=== PATIENT | female | born 1955 | race Caucasian/White ===

== ENCOUNTER → 2017-12-08 11:00 | Outpatient (REF) | payer OTHER, SELFPAY ==
[2017-12-08 13:54] LABS: Alanine Aminotransferase 26 U/L (12-78); Albumin/Globulin Ratio 1.2 (1.1-1.8); Alkaline Phosphatase 107 U/L (46-116); Anion Gap 13.8 mEq/L (5-15); Aspartate Amino Transferase 16 U/L (15-37); Bilirubin,Total 0.4 mg/dL (0.2-1.0); Blood Urea Nitrogen 11 mg/dL (7-18); Calcium 9.9 mg/dL (8.5-10.1); Carbon Dioxide 27 mmol/L (21.0-32.0); Chloride 101 mmol/L (98-107); Cholesterol 247 mg/dL (140-200); Creatinine,Serum 0.71 mg/dL (0.55-1.02); Estimated Glomerular Filt Rate 84 ml/min (>60); GFR (African American) 102 ML/MIN (>60); Globulin 3.4 gm/dl (1.3-3.2); Glucose 250 mg/dL (74-106); HDL Cholesterol 31 mg/dL (29-89); LDL Cholesterol 164 mg/dL (0-130); Potassium 4.8 mmoL/L (3.5-5.1); Sodium 137 mmol/L (136-145); T4 (Thyroxine) 9.6 ug/dl (4.7-13.3); Thyroid Stimulating Hormone 1.76 uIU/ml (0.358-3.740); Total Protein,Serum 7.4 gm/dL (6.4-8.2); Triglycerides 258 mg/dL (30-200); VLDL Cholesterol 52 mg/dL (0-40)
[2017-12-08 15:10] LABS: Basophils # 0.1 K/mm3 (0-0.2); Basophils % 0.7 % (0.1-2.0); Eosinophils # 0.2 K/mm3 (0.0-0.4); Eosinophils % 2.2 % (0.1-12.0); Hematocrit 45.4 % (37.0-47.0); Hemoglobin 14.7 g/dL (12.2-16.2); Lymphocytes # 1.5 K/mm3 (0.7-4.5); Lymphocytes % 18.4 K/mm3 (10-50); Mean Corpuscular HGB Conc 32.4 g/dL (31.8-35.4); Mean Corpuscular Hemoglobin 27.5 pg (27.0-31.2); Mean Corpuscular Volume 84.9 fl (81-99); Mean Platelet Volume 9.7 fl (7.4-10.4); Monocytes # 0.5 K/mm3 (0.1-1.0); Monocytes % 5.9 % (1.7-9.3); Neutrophils # 6.1 K/mm3 (1.8-7.8); Neutrophils % 72.8 % (37.0-80.0); Platelet Count 263 K/mm3 (142-424); Red Blood Count 5.35 M/mm3 (4.20-5.40); Red Cell Distribution Width 12.9 % (11.5-17.5); White Blood Count 8.3 K/mm3 (4.8-10.8)
== END ==
LOC: LAB 11:00
PROVIDERS: Visit Provider Physician Assistant
DX: E11.9 Type 2 diabetes mellitus without complications (principal); E11.65 Type 2 diabetes mellitus with hyperglycemia
CPT/HCPCS: 80053; 80061; 82652; 83036; 84436; 84443; 85025

== ENCOUNTER → 2018-03-07 10:59 | Outpatient (REF) | payer OTHER, SELFPAY ==
[2018-03-07 15:14] LABS: Basophils # 0.1 K/mm3 (0-0.2); Basophils % 0.6 % (0.1-2.0); Eosinophils # 0.1 K/mm3 (0.0-0.4); Eosinophils % 1.9 % (0.1-12.0); Hematocrit 41.8 % (37.0-47.0); Hemoglobin 14.2 g/dL (12.2-16.2); Mean Corpuscular HGB Conc 33.9 g/dL (31.8-35.4); Mean Corpuscular Hemoglobin 29.4 pg (27.0-31.2); Mean Corpuscular Volume 86.9 fl (81-99); Mean Platelet Volume 9.4 fl (7.4-10.4); Monocytes # 0.6 K/mm3 (0.1-1.0); Monocytes % 7.3 % (1.7-9.3); Neutrophils # 4.8 K/mm3 (1.8-7.8); Neutrophils % 63.2 % (37.0-80.0); Platelet Count 242 K/mm3 (142-424); Red Blood Count 4.81 M/mm3 (4.20-5.40); Red Cell Distribution Width 13.2 % (11.5-17.5); White Blood Count 7.6 K/mm3 (4.8-10.8)
[2018-03-07 15:35] LABS: Hemoglobin A1C 8.6 % (0.0-7.0)
[2018-03-07 15:52] LABS: Alanine Aminotransferase 28 U/L (12-78); Albumin Level 3.8 gm/dL (3.4-5.0); Albumin/Globulin Ratio 1.1 (1.1-1.8); Alkaline Phosphatase 97 U/L (46-116); Amylase 51 U/L (25-125); Anion Gap 10.4 mEq/L (5-15); Aspartate Amino Transferase 16 U/L (15-37); Bilirubin,Total 0.5 mg/dL (0.2-1.0); Blood Urea Nitrogen 11 mg/dL (7-18); Calcium 9.1 mg/dL (8.5-10.1); Carbon Dioxide 31 mmol/L (21.0-32.0); Chloride 104 mmol/L (98-107); Chol/HDL Ratio 6.7 (1-3.5); Cholesterol 247 mg/dL (140-200); Creatinine,Serum 0.76 mg/dL (0.55-1.02); Estimated Glomerular Filt Rate 77 ml/min (>60); GFR (African American) 94 ML/MIN (>60); Globulin 3.4 gm/dl (1.3-3.2); Glucose 154 mg/dL (74-106); HDL Cholesterol 37 mg/dL (29-89); LDL Cholesterol 168 mg/dL (0-130); Lipase 156 u/L (73-393); Potassium 4.4 mmoL/L (3.5-5.1); Sodium 141 mmol/L (136-145); T4 (Thyroxine) 10.6 ug/dl (4.7-13.3); Thyroid Stimulating Hormone 3.86 uIU/ml (0.358-3.740); Total Protein,Serum 7.2 gm/dL (6.4-8.2); Triglycerides 211 mg/dL (30-200); VLDL Cholesterol 42 mg/dL (0-40)
[2018-03-09 12:38] LABS: Vitamin D 25 Hydroxy 23.4 ng/mL (30.0-100.0)
== END ==
LOC: LAB 10:59
PROVIDERS: Visit Provider Physician Assistant
DX: E11.9 Type 2 diabetes mellitus without complications (principal)
CPT/HCPCS: 80053; 80061; 82150; 82652; 83036; 83690; 84436; 84443; 85025

== ENCOUNTER → 2018-06-02 14:15 | Outpatient (CLI) | payer OTHER, SELFPAY ==
[2018-06-02 15:08] LABS: Basophils # 0.1 K/mm3 (0-0.2); Basophils % 0.8 % (0.1-2.0); Eosinophils # 0.2 K/mm3 (0.0-0.4); Eosinophils % 2.3 % (0.1-12.0); Hematocrit 42.3 % (37.0-47.0); Hemoglobin 13.9 g/dL (12.2-16.2); Lymphocytes # 1.7 K/mm3 (0.7-4.5); Lymphocytes % 18.9 % (10-50); Mean Corpuscular HGB Conc 32.9 g/dL (31.8-35.4); Mean Corpuscular Hemoglobin 29.7 pg (27.0-31.2); Mean Corpuscular Volume 90.4 fl (81-99); Mean Platelet Volume 9.7 fl (7.4-10.4); Monocytes # 0.5 K/mm3 (0.1-1.0); Monocytes % 5.6 % (1.7-9.3); Neutrophils # 6.6 K/mm3 (1.8-7.8); Neutrophils % 72.4 % (37.0-80.0); Platelet Count 251 K/mm3 (142-424); Red Blood Count 4.68 M/mm3 (4.20-5.40); Red Cell Distribution Width 13.5 % (11.5-17.5)
[2018-06-02 16:57] LABS: Alanine Aminotransferase 23 U/L (12-78); Albumin/Globulin Ratio 1.2 (1.1-1.8); Alkaline Phosphatase 117 U/L (46-116); Anion Gap 16.6 mEq/L (5-15); Aspartate Amino Transferase 11 U/L (15-37); Bilirubin,Total 0.6 mg/dL (0.2-1.0); Blood Urea Nitrogen 14 mg/dL (7-18); Calcium 9.2 mg/dL (8.5-10.1); Carbon Dioxide 28 mmol/L (21.0-32.0); Chloride 97 mmol/L (98-107); Chol/HDL Ratio 6.3 (1-3.5); Cholesterol 208 mg/dL (140-200); Creatinine,Serum 0.81 mg/dL (0.55-1.02); Estimated Glomerular Filt Rate 72 ml/min (>60); Free T4 (Free Thyroxine) 1.02 ng/dl (0.76-1.46); GFR (African American) 87 ML/MIN (>60); Globulin 3.3 gm/dl (1.3-3.2); Glucose 145 mg/dL (74-106); HDL Cholesterol 33 mg/dL (29-89); LDL Cholesterol 133 mg/dL (0-130); Potassium 4.6 mmoL/L (3.5-5.1); Sodium 137 mmol/L (136-145); Thyroid Stimulating Hormone 0.82 uIU/ml (0.358-3.740); Total Protein,Serum 7.3 gm/dL (6.4-8.2); Triglycerides 210 mg/dL (30-200); VLDL Cholesterol 42 mg/dL (0-40)
[2018-06-02 17:30] LABS: Hemoglobin A1C 7.7 % (0.0-7.0)
[2018-06-04 10:12] LABS: Creatinine, Urine 104.8 mg/dL (Not Estab.); Microalbumin, Urine 97.4 ug/mL (Not Estab.)
[2018-06-05 05:33] LABS: Vitamin D 25 Hydroxy 26.2 ng/mL (30.0-100.0)
== END ==
PROVIDERS: Visit Provider Physician Assistant
DX: E11.9 Type 2 diabetes mellitus without complications (principal)
CPT/HCPCS: 80053; 80061; 82043; 82570; 82652; 83036; 84439; 84443; 85025

== ENCOUNTER 2021-02-03 09:21 | Emergency (ER) | payer OTHER, SELFPAY ==
[2021-02-03 11:00] VITALS: BP 163/70; PULSE 89; RESP 20; TEMP 36.9; O2SAT 97; BMI 30.7
--- NOTE | 2021-02-03 11:40 | ECG_ITS ---
APPROVED REPORT Exam: Resting ECG HR:84 bpm ECG Measurements Heart Rate 84 AXES HI 160 P 45 QRSd 66 QRS -9 QT 386 T 48 QTc 456 Conclusion Normal sinus rhythm Late R wave progression Abnormal ECG Electronically signed by : Dilip Leiva MD 02/04/2021 21:05:34
--- NOTE | 2021-02-03 11:48 | HMH.EDUTC ---
[facility] [place] Disposition Clinical Impression: BPPV (benign paroxysmal positional vertigo) Qualifiers: Laterality: right Qualified Code(s): H81.11 - Benign paroxysmal vertigo, right ear Disposition: Home, Self-Care Condition on Discharge: Good Instructions: Benign Paroxysmal Positional Vertigo, DI for Benign Paroxysmal Positional Vertigo, How to Perform Rema Maneuver Additional Instructions: Drink plenty of fluids. Perform the Rema Maneuvers as instructed in your paperwork. These will help your balance come back quicker. Take the medications as directed. They will make you drowsy, so don't drive or operate heavy machinery after taking it. Follow up with your regular doctor. GO TO THE ER FOR ANY WORSENING SYMPTOMS Prescriptions: Meclizine HCl [Antivert 25mg tablet] 25 mg PO Q6HP PRN #30 tab PRN Reason: Dizziness Transmission Status: Received by [facility] Ondansetron [Zofran 4mg ODT] 4 mg PO Q8HP PRN #20 tab.rapdis PRN Reason: Nausea [facility] Referrals: Flor Benitez PA [Primary Care Provider] - Forms: Work/School Release Time of Disposition: 11:53 Medical Decision Making - Medical Records Medical records reviewed: No: I reviewed the patient's medical records. - Bryon Inquiry Pt receiving controlled substance: No Vital Signs: 02/03/21 11:00 02/03/21 12:20 Temperature 98.5 F 98.4 F Temperature Source Oral Pulse Rate 85 Pulse Rate [Left] 89 Respiratory Rate 20 18 Blood Pressure 148/77 H Blood Pressure [Right Arm] 163/70 H Blood Pressure Mean [Right Arm] 101 02 Sat by Pulse Oximetry 97 - ECG Data Tracing #1 ECG initial impression date: 02/03/21 ECG initial impression time: 11:30 ECG normal with no acute: arrhythmias, ischemia, conduction abnormalities, chamber hypertrophy Normal Sinus Rhythm: Yes ECG compared to prior tracings: there are no prior tracings available for comparison Medical Decision Narrative: She had a very positive claribel-hallpike maneuver on the right. [facility] [place] HPI - General Stated complaint: dizzy Time Seen by Provider: 02/03/21 11:00 Mode of Arrival: Ambulatory Source of Information: Patient Limitations: No Limitations Description of Symptoms (Recalled from Triage Doc. by RN): pt c/o of her head swimming and room spinning since yesterday. HEENT Symptoms (Recalled from RN notes): Yes (pt c/o feeling like the room is swimming) Resp Symptoms (Recalled from RN notes): No Skin Symptoms (Recalled from RN notes): No MS Symptoms (Recalled from RN notes): No Functional Status (Recalled from RN notes): na - History of Present Illness Provider Complaint: She states that she has had dizziness for the past 2 days. She has had some sinus congestion and ear pressure before her dizziness began. She denies any sinus or ear pain or complaints at this time. She denies headache, weakness or any other complaints. - Related Data Previous Rx's Medication Instructions Recorded aspirin 81 mg tablet,delayed 81 mg PO DAILY #90 tab 05/22/20 release gabapentin 300 mg capsule 300 mg PO HS #30 cap 05/22/20 loratadine 10 mg tablet 10 mg PO DAILY #30 tab 05/22/20 tramadol 50 mg tablet 50 mg PO HS PRN #30 tab 05/22/20 sitagliptin 100 mg tablet 100 mg PO QDAY 90 Days #90 tab 07/03/20 glipizide 10 mg tablet See Rx Instructions .ROUTE 09/20/20 .COMPLEX #180 tab atorvastatin 10 mg tablet See Rx Instructions .ROUTE 12/12/20 .COMPLEX #30 tab citalopram 40 mg tablet See Rx Instructions .ROUTE 12/12/20 .COMPLEX #30 tab lisinopril 10 mg tablet See Rx Instructions .ROUTE 12/12/20 .COMPLEX #30 tab nabumetone 750 mg tablet See Rx Instructions .ROUTE 12/12/20 .COMPLEX #60 tab Meclizine HCl [Antivert 25mg 25 mg PO Q6HP PRN #30 tab 02/03/21 tablet] Ondansetron [Zofran 4mg ODT] 4 mg PO Q8HP PRN #20 tab.rapdis 02/03/21 Allergies Allergy/AdvReac Type Severity Reaction Status Date / Time metformin AdvRea
[2021-02-03 12:20] VITALS: BP 148/77; PULSE 85; RESP 18; TEMP 36.9
== END 2021-02-03 12:26 | disposition home or self-care (01) ==
PROVIDERS: Emergency Provider Nurse Practitioner Family; PCP Physician Assistant
DX: H81.11 Benign paroxysmal vertigo, right ear (principal)
CPT/HCPCS: 93005; 93041; 99202; G0463

== ENCOUNTER → 2021-07-23 09:52 | Outpatient (CLI) | payer OTHER, SELFPAY ==
[2021-07-23 11:06] LABS: Alanine Aminotransferase 22 U/L (12-78); Albumin Level 4.5 g/dl (3.5-5.0); Albumin/Globulin Ratio 1.7 (1.1-1.8); Alkaline Phosphatase 99 U/L (38-126); Anion Gap 11.9 mEq/L (5-15); Aspartate Amino Transferase 25 U/L (14-36); Bilirubin,Total 0.4 mg/dl (0.2-1.3); Blood Urea Nitrogen 14 mg/dl (7-17); Carbon Dioxide 29 mmol/L (22.0-30.0); Chloride 104 mmol/L (98-107); Cholesterol 187 mg/dl (140-200); Estimated Glomerular Filt Rate 72 ml/min (>60); GFR (African American) 87 ML/MIN (>60); Globulin 2.6 g/dL (1.3-3.2); Glucose 157 mg/dl (74-100); HDL Cholesterol 31 mg/dl (40-60); Potassium 4.9 mmoL/L (3.5-5.1); Sodium 140 mmol/L (136-145); Total Protein,Serum 7.1 g/dl (6.3-8.2); Triglycerides 214 mg/dl (30-150); VLDL Cholesterol 43 mg/dL (0-40)
[2021-07-23 11:11] LABS: Microalbumin/Creatinine Ratio 32.4
[2021-07-23 11:13] LABS: Creatinine,Urine Random 58 mg/dL (Not Estab.)
[2021-07-23 11:19] LABS: Basophils # 0.1 K/mm3 (0-0.2); Basophils % 1.1 % (0.1-2.0); Eosinophils # 0.2 K/mm3 (0.0-0.4); Eosinophils % 2.8 % (0.1-12.0); Hematocrit 43.4 % (37.0-47.0); Hemoglobin 14.4 g/dL (12.2-16.2); Lymphocytes # 1.5 K/mm3 (0.7-4.5); Lymphocytes % 18.1 % (10-50); Mean Corpuscular HGB Conc 33.2 g/dL (31.8-35.4); Mean Corpuscular Hemoglobin 29.6 pg (27.0-31.2); Mean Corpuscular Volume 89.2 fl (81-99); Mean Platelet Volume 9.5 fl (7.4-10.4); Monocytes # 0.6 K/mm3 (0.1-1.0); Monocytes % 6.8 % (1.7-9.3); Neutrophils # 5.8 K/mm3 (1.8-7.8); Neutrophils % 71.3 % (37.0-80.0); Platelet Count 266 K/mm3 (142-424); Red Blood Count 4.87 M/mm3 (4.20-5.40); White Blood Count 8.1 K/mm3 (4.8-10.8)
[2021-07-23 11:21] LABS: Direct LDL Cholesterol 119.37 mg/dL (100-129)
[2021-07-23 11:35] LABS: Hemoglobin A1C 7.9 % (4.0-6.0)
[2021-07-23 11:39] LABS: Thyroid Stimulating Hormone 1.21 uIU/mL (0.465-4.68)
[2021-07-24 11:28] LABS: C-Peptide 4.2 ng/mL (1.1-4.4)
== END ==
PROVIDERS: Visit Provider Physician Assistant
DX: E11.9 Type 2 diabetes mellitus without complications (principal); E03.9 Hypothyroidism, unspecified; E78.5 Hyperlipidemia, unspecified; E55.9 Vitamin D deficiency, unspecified; Z79.4 Long term (current) use of insulin
CPT/HCPCS: 36415; 80053; 80061; 82043; 82306; 82570; 83036; 84443; 84681; 85025

== ENCOUNTER → 2021-08-04 09:29 | Outpatient (CLI) | payer OTHER, SELFPAY ==
[2021-08-05 10:41] LABS: Covid-19 Nasal PCR Sendout Lex NOT DETECTED
== END ==
PROVIDERS: Visit Provider Nurse Practitioner
DX: Z20.822 Contact with and (suspected) exposure to COVID-19 (principal)
CPT/HCPCS: C9803; U0004; U0005

== ENCOUNTER → 2021-08-28 10:45 | Outpatient (CLI) | payer OTHER, SELFPAY ==
[2021-08-28 10:56] LABS: Microscopic, Urine URINE MICROSCOPIC (MICROSCOPIC)
[2021-08-28 11:26] LABS: Basophils # 0.2 K/mm3 (0-0.2); Basophils % 1.8 % (0.1-2.0); Eosinophils # 0.2 K/mm3 (0.0-0.4); Eosinophils % 2.5 % (0.1-12.0); Hematocrit 46.2 % (37.0-47.0); Hemoglobin 15.1 g/dL (12.2-16.2); Lymphocytes # 1.6 K/mm3 (0.7-4.5); Lymphocytes % 18.1 % (10-50); Mean Corpuscular HGB Conc 32.7 g/dL (31.8-35.4); Mean Corpuscular Hemoglobin 29.7 pg (27.0-31.2); Mean Corpuscular Volume 90.6 fl (81-99); Mean Platelet Volume 10.4 fl (7.4-10.4); Monocytes # 0.4 K/mm3 (0.1-1.0); Neutrophils # 6.4 K/mm3 (1.8-7.8); Neutrophils % 72.7 % (37.0-80.0); Platelet Count 299 K/mm3 (142-424); Red Cell Distribution Width 13.7 % (11.5-17.5); White Blood Count 8.9 K/mm3 (4.8-10.8)
[2021-08-28 12:17] LABS: Appearance,Urine CLEAR (Clear); Bilirubin,Urine Negative (Negative); Blood, Urine Negative (Negative); Color,Urine YELLOW (Yellow); Glucose,Urine (UA) 3+ (Negative); Ketones,Urine Negative (Negative); Leukocyte Esterase,Urine Negative (Negative); Nitrate,Urine Negative (Negative); PH,Urine 5.5 (5.0-8.5); Protein,Urine Negative (Negative); Urobilinogen,Urine 0.2 EU/dl (0.2)
[2021-08-28 12:27] LABS: Creatinine,Urine Random 85 mg/dL (Not Estab.)
[2021-08-28 12:44] LABS: Bacteria,Urine 3+ /lpf; RBC,Urine Occasional #/hpf (0-3); WBC,Urine 20-50 #/hpf (0-3)
[2021-08-28 14:41] LABS: 25-OH Vitamin D, Total 26.9 ng/mL (30-100)
[2021-08-28 15:00] LABS: Albumin Level 4.3 g/dl (3.5-5.0); Anion Gap 15.3 mEq/L (5-15); Blood Urea Nitrogen 21 mg/dl (7-17); Calcium 9.4 mg/dl (8.4-10.2); Carbon Dioxide 26 mmol/L (22.0-30.0); Chloride 100 mmol/L (98-107); Estimated Glomerular Filt Rate 63 ml/min (>60); GFR (African American) 76 ML/MIN (>60); Glucose 173 mg/dl (74-100); Phosphorous 4.4 mg/dl (2.5-4.5); Potassium 5.3 mmoL/L (3.5-5.1); Sodium 136 mmol/L (136-145)
[2021-08-28 15:13] LABS: Intact Parathyroid Hormone 54.9 pg/mL (7.5-53.5)
== END ==
PROVIDERS: Visit Provider Internal Medicine Nephrology
DX: R80.9 Proteinuria, unspecified (principal); E55.9 Vitamin D deficiency, unspecified
CPT/HCPCS: 36415; 80069; 81001; 82043; 82306; 82570; 83970; 84155; 85025; 87086

== ENCOUNTER → 2021-09-01 09:16 | Outpatient (POV) | payer OTHER, SELFPAY | PROVIDERS: Visit Provider Internal Medicine Nephrology | DX: Z00.00 Encounter for general adult medical examination without abnormal findings (principal) ==

== ENCOUNTER → 2021-09-18 09:03 | Outpatient (CLI) | payer OTHER, SELFPAY ==
--- NOTE | 2021-09-18 09:12 | XR_ITS ---
FINAL REPORT TECHNIQUE: Bone densitometry calculations of the lumbar spine and left hip were obtained. CLINICAL HISTORY: POST MENOPAUSAL FINDINGS: Using L1-4, the bone mineral density of the spine is 0.857 g/cm2, corresponding to T-score of -1.7. Using the left hip, the bone mineral density of the femoral neck is 0.614 g/cm2, corresponding to a T-score of -2.1. Using the right hip, the bone mineral density of the femoral neck is 0.594 g/cm2, corresponding to a T-score of -2.3. NOTE: T-score: Standard deviation compared with peak bone mass of young adult mean. *Following the recommendations of the International Society of Bone densitometry, classification of hip BMD is based on the lower of two T-scores; total hip or femoral neck. IMPRESSION: Diminished bone mineral density of the lumbar spine and both hips consistent with osteopenia. Reviewed, Interpreted and Dictated by Patricio Urban MD Transcribed by Brenda Luther Authenticated by Patricio Urban MD on 09/18/2021 12:57:18 PM [facility]
== END ==
PROVIDERS: PCP Physician Assistant; Visit Provider Internal Medicine Nephrology
DX: Z78.0 Asymptomatic menopausal state (principal); E11.29 Type 2 diabetes mellitus with other diabetic kidney complication; R80.9 Proteinuria, unspecified
CPT/HCPCS: 77080

== ENCOUNTER 2021-10-27 20:46 | Emergency (ER) | payer OTHER, SELFPAY ==
[2021-10-27 20:47] VITALS: BP 196/87; PULSE 93; RESP 20; TEMP 36.6; O2SAT 99; BMI 30.1
--- NOTE | 2021-10-27 20:51 | XR_ITS ---
PROCEDURE INFORMATION: Exam: XR Right Finger(s) Exam date and time: 10/27/2021 8:49 PM Age: 65 years old Clinical indication: Injury or trauma; Fall; Blunt trauma (contusions or hematomas); Patient HX: Fell and struck right ring finger on refrigerator. TECHNIQUE: Imaging protocol: XR Right fingers. Views: Minimum 2 views. COMPARISON: CR HANDR3 HAND-RT 3 VIEWS 12/10/2014 9:46 AM FINDINGS: Bones/joints: Acute, displaced, oblique, intra-articular fracture of the proximal and dorsoradial aspects of the 4th finger middle phalanx. No dislocation. Soft tissues: Fourth single soft tissue swelling. IMPRESSION: 1. Acute, displaced, oblique, intra-articular fracture of the proximal and dorsoradial aspects of the 4th finger middle phalanx. 2. Fourth single soft tissue swelling.
--- NOTE | 2021-10-27 21:00 | HMH.EDGENADL ---
ED Disposition Clinical Impression: Fracture of phalanx of right hand, closed Qualifiers: Encounter type: initial encounter Finger: ring finger Phalanx: middle Fracture alignment: displaced Qualified Code(s): S62.624A - Displaced fracture of middle phalanx of right ring finger, initial encounter for closed fracture Disposition: Home, Self-Care Condition on Discharge: Fair Instructions: DI for Finger Fracture Additional Instructions: You have been evaluated for fall, injury to the right hand. You have been diagnosed with a fracture of the middle phalanx of the ring finger of the right hand. Please keep splint in place. Follow-up with orthopedics, Dr. Bateman at earliest availability. Return to the emergency department at once for any new or worsening symptoms. Referrals: Flor Benitez PA [Primary Care Provider] - Cornel Bateman MD [Staff Physician] - Time of Disposition: 21:56 - Critical Care Critical Care Time: No Attestation: On 10/27/21, the high probability of a clinically significant, sudden or life threatening deterioration of the following system(s) required my full and direct attention, intervention and personal management. The time I documented below is in addition to time spent performing reported procedures but includes the following listed in this critical care notation. Medical Decision Making - Medical Records Medical records reviewed: Yes: I reviewed the patient's medical records. - Bryon Inquiry Pt receiving controlled substance: No Vital Signs: 10/27/21 20:47 Temperature 97.9 F Temperature Source Oral Pulse Rate [Right] 93 H Respiratory Rate 20 Blood Pressure [Right Arm] 196/87 H Blood Pressure Mean [Right Arm] 123 Blood Pressure Source [Right Arm] Automatic Cuff 02 Sat by Pulse Oximetry 99 Oxygen Delivery Method Room Air - Radiology Data #1 Image(s): Finger(s)/Thumb Image Reviewed: Yes I reviewed the patient's radiology results, Yes I reviewed the patient's radiology image Preliminary Findings: Abnormal IMPRESSION: 1. Acute, displaced, oblique, intra-articular fracture of the proximal and dorsoradial aspects of the 4th finger middle phalanx. 2. Fourth single soft tissue swelling. Medical Decision Narrative: In summary this is a 65-year-old [id number] female presenting to the emergency department with injury to the ring finger of the right hand. Patient clinically stable on arrival. Vital signs within normal limits. Will obtain x-rays. X-ray of the digit shows a fracture of the middle phalanx. It is an oblique fracture with slight angulation. Patient counseled on the findings. Her pain is controlled. She was placed into an ulnar gutter splint to immobilize the fracture. Will need urgent Ortho follow-up. Given referral to Dr. Bateman. Counseled on splint care and given return precautions. Stable for discharge. General Adult HPI - General Stated complaint: AO05/02@2030 right ring finger injury Time Seen by Provider: 10/27/21 20:50 Mode of Arrival: Ambulatory Source of Information: Patient Limitations: No Limitations - History of Present Illness HPI narrative: 65-year-old female presenting to the emergency department after fall, injury to the right hand. Incident happened just prior to arrival. She was walking in her kitchen when she tripped and fell forward. She struck her knees on the ground and her right hand caught her fall. She had immediate pain on the ring finger of the right hand. Located near the PIP joint. Feels like there is swelling. Difficulty with flexing the finger. No pain in the rest of the hand or other fingers. No breaks in the skin. No medications prior to arrival. She did not strike her head. No injury to the chest or abdomen. Was able to ambulate afterward. - Related Data Previous Rx's Medication Instructions Recorded aspirin 81 mg tablet,delayed 81 mg PO DAILY #90 tab 02/19/21 release citalopram 40 mg
[2021-10-27 23:24] VITALS: BP 161/58; PULSE 75; RESP 20; TEMP 36.7; O2SAT 96
== END 2021-10-27 23:45 | disposition home or self-care (01) ==
PROVIDERS: Emergency Provider Emergency Medicine; PCP Physician Assistant
DX: S62.624A Displaced fracture of middle phalanx of right ring finger, initial encounter for closed fracture (principal); S62.614A Displaced fracture of proximal phalanx of right ring finger, initial encounter for closed fracture; W01.0XXA Fall on same level from slipping, tripping and stumbling without subsequent striking against object, initial encounter; Y92.019 Unspecified place in single-family (private) house as the place of occurrence of the external cause; E78.5 Hyperlipidemia, unspecified; E11.9 Type 2 diabetes mellitus without complications
CPT/HCPCS: 29125; 73140; 99283

== ENCOUNTER → 2021-10-31 13:14 | Outpatient (CLI) | payer OTHER, SELFPAY | PROVIDERS: Visit Provider Orthopaedic Surgery Hand Surgery | DX: Z01.818 Encounter for other preprocedural examination (principal); Z11.52 Encounter for screening for COVID-19 | CPT/HCPCS: C9803; U0003; U0005 ==

== ENCOUNTER 2022-01-16 13:21 | Emergency (ER) | payer MEDICARE, SELFPAY ==
[2022-01-16 13:22] VITALS: BP 119/70; PULSE 87; RESP 18; TEMP 36.8; O2SAT 99; BMI 25.8
[2022-01-16 14:08] VITALS: BP 119/70; PULSE 87; RESP 18; TEMP 36.8; O2SAT 99
--- NOTE | 2022-01-16 14:09 | HMH.EDUTC ---
[facility] [place] Disposition Clinical Impression: Sinusitis Qualifiers: Sinusitis location: unspecified location Chronicity: unspecified Qualified Code(s): J32.9 - Chronic sinusitis, unspecified Disposition: Home, Self-Care Condition on Discharge: Good Instructions: Sinusitis, DI for Sinusitis, DI for COVID-19 (Suspected or Confirmed ), Preventing the Spread of Coronavirus Discharge Instructions Additional Instructions: *Monitor Temp, Over the counter Motrin or Tylenol as directed/as needed Tylenol every 4 hours and Motrin every 6 hours (as long as your family doctor has told you that you can take it) for fever or pain. and straight to ER if unable to lower temp less than 101.0 after medication given *Warm salt water gargles may help to soothe the throat *Throat Lozenges *Warm fluids like tea with honey may help to soothe the throat *Sleep elevated *Humidifier/Vaporizer Follow up IMMEDIATELY for new or worsening symptoms or no Noticeable improvement over the next 48-72 hours. 911 for difficulty breathing or swallowing You were tested for today for COVID19 your test result should be back in the next 24-48 hours, you may check your results on the [facility] My Health Portal Make sure to take your Vitamins Vit. C Vit D and Zinc if you can take them Prescriptions: Azithromycin [Z-Deven 250mg Tab] 250 mg PO DIRECTED #6 tab Transmission Status: Pending to [facility] Referrals: Cassi Neal APRN [Primary Care Provider] - As needed Forms: Work/School Release Time of Disposition: 14:15 Medical Decision Making - Bryon Inquiry Pt receiving controlled substance: No Bryon was queried for this patient: No Vital Signs: 01/16/22 13:22 Temperature 98.3 F Temperature Source Oral Pulse Rate [Left Radial] 87 Respiratory Rate 18 Blood Pressure [Right Arm] 119/70 Blood Pressure Mean [Right Arm] 86 Blood Pressure Source [Right Arm] Automatic Cuff Blood Pressure Position [Right Arm] Sitting 02 Sat by Pulse Oximetry 99 Oxygen Delivery Method Room Air Orders (Tests/Meds): ORDERS Category Date Time Status Covid-19 Nasal PCR ([facility]) Routine Lab 01/16/22 13:48 Received Medical Decision Narrative: Patient states that she has taken azithromycin in the past with complications or reactions [facility] [place] HPI - General Stated complaint: Covid test; cough weakness Time Seen by Provider: 01/16/22 14:09 Mode of Arrival: Ambulatory Source of Information: Patient Limitations: No Limitations Description of Symptoms (Recalled from Triage Doc. by RN): c/o sore throat, coughing, no energy, soa and running fever since last wednesday HEENT Symptoms (Recalled from RN notes): Yes Resp Symptoms (Recalled from RN notes): Yes (cough) Skin Symptoms (Recalled from RN notes): No MS Symptoms (Recalled from RN notes): No Functional Status (Recalled from RN notes): na - History of Present Illness Provider Complaint: Patient states that she started feeling bad over a week ago with sinus congestion, pressure, fever and headache States that she has continued to have sx come and go States that she feels like her nose is congested and gets a little winded at times with walking long distances and now she is having sinus pressure again with low grade fever States that she is concerned with COVID and wanted to get tested - Related Data Previous Rx's Medication Instructions Recorded aspirin 81 mg tablet,delayed 81 mg PO DAILY #90 tab 02/19/21 release citalopram 40 mg tablet 40 mg PO DAILY #90 tab 02/19/21 linagliptin 5 mg tablet 5 mg PO DAILY #90 tab 02/19/21 lisinopril 10 mg tablet See Rx Instructions .ROUTE 02/19/21 .COMPLEX #90 tab meclizine 25 mg tablet 25 mg PO Q6HP PRN #30 tab 02/19/21 nabumetone 750 mg tablet See Rx Instructions .ROUTE 02/19/21 .COMPLEX #180 tab ondansetron 4 mg disintegrating 4 mg PO Q8HP PRN #20 tab.rapdis 02/19/21 tablet atorvastatin 20 mg tablet 20 mg PO HS #90 tab 06/12/21 canagliflozin 300 mg tablet 300 mg PO MACIEJ
== END 2022-01-16 14:22 | disposition home or self-care (01) ==
PROVIDERS: Emergency Provider Nurse Practitioner; PCP Nurse Practitioner
DX: U07.1 COVID-19 (principal); J32.9 Chronic sinusitis, unspecified; R53.1 Weakness; R50.9 Fever, unspecified; E78.5 Hyperlipidemia, unspecified; E11.9 Type 2 diabetes mellitus without complications; E03.9 Hypothyroidism, unspecified; M19.90 Unspecified osteoarthritis, unspecified site; G25.81 Restless legs syndrome; F32.A Depression, unspecified; Z79.4 Long term (current) use of insulin; Z79.82 Long term (current) use of aspirin; Z79.899 Other long term (current) drug therapy; Z88.8 Allergy status to other drugs, medicaments and biological substances
CPT/HCPCS: 99213; C9803; G0463; U0003; U0005

== ENCOUNTER → 2022-04-10 09:48 | Outpatient (CLI) | payer MEDICARE, SELFPAY ==
--- NOTE | 2022-04-10 09:55 | XR_ITS ---
FINAL REPORT CLINICAL HISTORY: pain swelling FINDINGS: RIGHT ANKLE: Three views of the right ankle were obtained. There is no acute fracture or dislocation. There is postoperative change of the distal tibia and fibula. Mild degenerative changes are present. There is a chronic calcification inferior to the medial malleolus. IMPRESSION: Postoperative and degenerative changes. Reviewed, Interpreted and Dictated by Mazin Echevarria III, MD Transcribed by Zafar Motley Authenticated and [facility]
--- NOTE | 2022-04-10 09:55 | XR_ITS ---
FINAL REPORT CLINICAL HISTORY: pain, swelling FINDINGS: 3 weight-bearing views of the right foot were obtained. There are postoperative changes of the distal tibia and fibula. There is no acute fracture or dislocation. There is mild degenerative change. There is a plantar calcaneal spur. The soft tissues are unremarkable. IMPRESSION: Postoperative and degenerative changes. Reviewed, Interpreted and Dictated by Mazin Echevarria III, MD Transcribed by Zafar Motley Authenticated and [facility]
--- NOTE | 2022-04-10 09:55 | XR_ITS ---
FINAL REPORT CLINICAL HISTORY: pain swelling FINDINGS: 3 weight-bearing views of the left foot were obtained. There is no acute fracture or dislocation. There are mild degenerative changes. There is mild hallux valgus deformity. A plantar calcaneal spur is present. The soft tissues are unremarkable. IMPRESSION: Degenerative changes without acute abnormality. Reviewed, Interpreted and Dictated by Mazin Echevarria III, MD Transcribed by Zafra Motley Authenticated and [facility]
--- NOTE | 2022-04-10 09:55 | XR_ITS ---
FINAL REPORT CLINICAL HISTORY: pain, swelling FINDINGS: LEFT ANKLE: Three views of the left ankle were obtained. There is no acute fracture or dislocation. The joint spaces and mortise are intact. There is no soft tissue abnormality. IMPRESSION: No acute process. Reviewed, Interpreted and Dictated by Mazin Echevarria III, MD Transcribed by Zafar Motley Authenticated and . [facility]
== END ==
LOC: RAD 09:50
PROVIDERS: PCP Nurse Practitioner; Visit Provider Podiatrist
DX: M79.672 Pain in left foot (principal); M79.671 Pain in right foot; M25.572 Pain in left ankle and joints of left foot; M25.571 Pain in right ankle and joints of right foot
CPT/HCPCS: 73610; 73630

== ENCOUNTER 2023-12-09 10:55 | Outpatient (CLI) | payer MEDICARE, SELFPAY ==
--- NOTE | 2023-12-09 10:56 | CA_ITS ---
APPROVED REPORT EXAM: Comprehensive 2D, Doppler, and color-flow Echocardiogram Key Operator: Patito Ramirez CRT Ht: 5 ft 3 in Wt: 176lbs BSA: 1.83 BP: 113/54 mmHg Indications: STENTS 11/30/23, CO 11/30/23, EF Check and effusion checked M-Mode Dimensions RVDd 2.90 cm (0.9-2.6) LVDd 4.36 cm (3.5-5.7) LVDs 3.04 cm (3.5-5.7) IVSd 1.57 cm (0.6-1.1) PWd 0.79 cm (0.6-1.1) EF (Teich) 57.80% FS 30.30% EDV (Teich) 85.80 mL ESV (Teich) 36.20 mL Other Information Study Quality: Fair Conclusion This is a limited TTE to evaluate for pericardial effusion. Limited windows were obtained. There is a small-sized, posterior pericardial effusion present. The pericardial effusion measures 0.3 cm in its largest pocket in diastole. No chamber collapse. The IVC is normal in size and collapsibility. No echo indications of tamponade. Compared to prior study from 12/02/2023, the pericardial effusion size and location are unchanged. Electronically signed by : Julita Moyer MD 12/12/2023 17:38:05
[2023-12-09 12:19] LABS: Basophils # 0.1 K/mm3 (0-0.2); Basophils % 0.7 % (0.1-2.0); Eosinophils # 0.2 K/mm3 (0.0-0.4); Eosinophils % 1.7 % (0.1-12.0); Hematocrit 27.4 % (37.0-47.0); Hemoglobin 8.8 g/dL (12.2-16.2); Lymphocytes # 1.5 K/mm3 (0.7-4.5); Mean Corpuscular Hemoglobin 28.7 pg (27.0-31.2); Mean Corpuscular Volume 89.7 fl (81-99); Mean Platelet Volume 9.9 fl (7.4-10.4); Monocytes # 0.6 K/mm3 (0.1-1.0); Monocytes % 5.1 % (1.7-9.3); Neutrophils # 9.1 K/mm3 (1.8-7.8); Neutrophils % 79.5 % (37.0-80.0); Platelet Count 326 K/mm3 (142-424); Red Blood Count 3.06 M/mm3 (4.20-5.40); Red Cell Distribution Width 14.2 % (11.5-17.5); White Blood Count 11.4 K/mm3 (4.8-10.8)
[2023-12-09 12:40] LABS: Anion Gap 14.9 mEq/L (5-15); Blood Urea Nitrogen 28 mg/dl (7-17); Calcium 9.2 mg/dl (8.4-10.2); Carbon Dioxide 24 mmol/L (22.0-30.0); Chloride 106 mmol/L (98-107); Estimated Glomerular Filt Rate 50 ml/min (>60); GFR (African American) 60 ML/MIN (>60); Glucose 148 mg/dl (74-100); Potassium 4.9 mmoL/L (3.5-5.1); Sodium 140 mmol/L (136-145)
== END 2023-12-09 23:59 | disposition home or self-care (01) ==
PROVIDERS: PCP Nurse Practitioner; Visit Provider Nurse Practitioner
DX: R06.09 Other forms of dyspnea (principal); I31.39 Other pericardial effusion (noninflammatory); I25.10 Atherosclerotic heart disease of native coronary artery without angina pectoris; I50.20 Unspecified systolic (congestive) heart failure; I21.4 Non-ST elevation (NSTEMI) myocardial infarction; E11.65 Type 2 diabetes mellitus with hyperglycemia; Z79.4 Long term (current) use of insulin; Z87.891 Personal history of nicotine dependence
CPT/HCPCS: 36415; 80048; 85025; 93308

== ENCOUNTER 2023-12-13 13:16 | Outpatient (CLI) | payer MEDICARE, SELFPAY ==
[2023-12-13 13:33] LABS: Basophils # 0.1 K/mm3 (0-0.2); Basophils % 0.9 % (0.1-2.0); Eosinophils # 0.3 K/mm3 (0.0-0.4); Eosinophils % 2.3 % (0.1-12.0); Hematocrit 26.4 % (37.0-47.0); Hemoglobin 8.6 g/dL (12.2-16.2); Lymphocytes # 1.5 K/mm3 (0.7-4.5); Lymphocytes % 12.9 % (10-50); Mean Corpuscular HGB Conc 32.5 g/dL (31.8-35.4); Mean Corpuscular Hemoglobin 28.7 pg (27.0-31.2); Mean Corpuscular Volume 88.2 fl (81-99); Mean Platelet Volume 10.1 fl (7.4-10.4); Monocytes # 0.6 K/mm3 (0.1-1.0); Neutrophils # 9.3 K/mm3 (1.8-7.8); Neutrophils % 78.9 % (37.0-80.0); Platelet Count 406 K/mm3 (142-424); Red Cell Distribution Width 14.3 % (11.5-17.5); White Blood Count 11.8 K/mm3 (4.8-10.8)
== END 2023-12-13 23:59 | disposition home or self-care (01) ==
LOC: LAB 13:17
PROVIDERS: PCP Nurse Practitioner; Visit Provider Nurse Practitioner
DX: K92.2 Gastrointestinal hemorrhage, unspecified (principal)
CPT/HCPCS: 36415; 85025

== ENCOUNTER 2023-12-15 15:30 | Observation (INO) | payer MEDICARE, SELFPAY ==
[2023-12-15] VITALS (20 sets, daily range): BP systolic 103–145; BP diastolic 48–78; PULSE 73–83; RESP 14–22; TEMP 36.8–37.4; O2SAT 94–99; BMI 29.6
[2023-12-15 12:39] LABS: Basophils # 0.1 K/mm3 (0-0.2); Basophils % 0.7 % (0.1-2.0); Eosinophils # 0.2 K/mm3 (0.0-0.4); Hematocrit 24.1 % (37.0-47.0); Hemoglobin 7.6 g/dL (12.2-16.2); Lymphocytes # 1.3 K/mm3 (0.7-4.5); Lymphocytes % 11.9 % (10-50); Mean Corpuscular HGB Conc 31.8 g/dL (31.8-35.4); Mean Corpuscular Hemoglobin 27.7 pg (27.0-31.2); Mean Corpuscular Volume 87.3 fl (81-99); Mean Platelet Volume 9.6 fl (7.4-10.4); Monocytes # 0.5 K/mm3 (0.1-1.0); Monocytes % 5.1 % (1.7-9.3); Neutrophils # 8.5 K/mm3 (1.8-7.8); Neutrophils % 80.3 % (37.0-80.0); Platelet Count 379 K/mm3 (142-424); Red Blood Count 2.76 M/mm3 (4.20-5.40); Red Cell Distribution Width 14.1 % (11.5-17.5); White Blood Count 10.5 K/mm3 (4.8-10.8)
[2023-12-15 13:10] LABS: Iron 34 ug/dL (37-170)
[2023-12-15 13:19] LABS: Total Iron Binding Capacity 364 ug/dL (265-497)
[2023-12-15 13:46] LABS: Ferritin 15.2 ng/ml (11.1-264)
--- NOTE | 2023-12-15 15:43 | PC.NURSE ---
arrived by w/c from front lobby admissions
--- NOTE | 2023-12-15 15:51 | HMH.PHAINT1 ---
Pharmacy Intervention Comments: MEDICATION RECONCILIATION COMPLETED ON PATIENT USING EXTERNAL FILL HISTORY FROM PHARMACY AND LIST FROM CARDIOLOGY OFFICE. -SOLOMON BOYCE, MARYD
--- NOTE | 2023-12-15 17:21 | P.HP_ITS ---
History of Present Illness *Admission Date: 12/15/23 *Reason for visit:: black stools, weak *History of present illness: Ms. Celaya is a 68-year-old female with history of type 2 diabetes, hypertension, hyperlipidemia, hypothyroidism. She was recently admitted earlier this month for difficulty breathing and chest pain. Found to have NSTEMI. Taken for heart cath on 11/29 with severe LAD disease received multiple stents and was discharged home in stable condition with mild AMY showing improvement. Has been following with cardiology and has been noted to have progressing anemia since her left heart cath and initiation of dual antiplatelet therapy. Was seen earlier today in cardiology clinic where her hemoglobin was noted to drop from 8.6 yesterday to 7.6 today. Patient reports that she has had intermittent black and red stools for the past few weeks. Has felt more weak and fatigued. Denies any nausea, chest pain, shortness of breath, syncope. Does have some intermittent heartburn. Has been taking Protonix for about a week with no significant improvement. Stable on room air. Due to lab abnormality today, cardiology requested admission for further management. On arrival to the floor, patient is pale but appears stable and at baseline level of mentation. Denies any fevers. On room air. Surgery consulted to evaluate patient with plan for EGD tomorrow. Has had a colonoscopy before with no abnormalities. Denies any history of EGD or gastric ulcer disease that she knows of. Does not drink and is a former smoker but has not smoked in many years [facility] Disclaimer: The information contained in this section may have been updated after the patient was seen, as this information can be updated by other users. Medical History HFrEF (heart failure with reduced ejection fraction) History of fracture of right ankle Fracture of phalanx of right hand, closed Diabetes Asthma Hyperlipidemia (~03/08/18) Osteoarthritis Restless leg syndrome Depression Surgical History S/P cardiac cath History of appendectomy History of ankle surgery History of lumpectomy of right breast History of knee surgery H/O wrist surgery H/O shoulder surgery Social History Smoking Status: Former smoker alcohol intake: never substance use type: denies use current occupational status: employed Travel in the last 8 weeks: None Review of Systems Review of Systems Review of systems (narrative): 14 point review of systems performed, pertinent positives and negatives as per [facility] Meds Home Medications and Allergies Home Medications Medication Instructions Recorded Confirmed Type cholecalciferol (vitamin D3) 1,250 1,250 mcg PO WEEKLY #5 caps 07/23/21 12/15/23 Rx mcg (50,000 unit) capsule cholecalciferol (vitamin D3) 25 25 mcg PO DAILY #90 caps 07/23/21 12/15/23 Rx mcg (1,000 unit) capsule pen needle, diabetic 31 gauge x #50 ea 07/23/21 12/15/23 Rx 5/16 (Comfort EZ Pen [place]) gabapentin 300 mg capsule 300 mg PO HS 04/10/22 12/15/23 History albuterol sulfate 90 mcg/actuation 2 inh inhalation Q4HP PRN Wheezing 11/30/23 12/15/23 History aerosol inhaler citalopram 40 mg tablet 40 mg PO DAILY 11/30/23 12/15/23 History nabumetone 750 mg tablet 750 mg PO BID 11/30/23 12/15/23 History insulin glargine 100 unit/mL (3 25 unit (0.25 mL) SQ HS 30 days #0 12/02/23 12/15/23 Rx mL) subcutaneous pen (Basaglar mL KwikPen U-100 Insulin) aspirin 81 mg tablet,delayed 81 mg PO DAILY #90 tabs 12/08/23 12/15/23 Rx release (Adult Low Dose Aspirin) atorvastatin 40 mg tablet 40 mg PO HS #90 tabs 12/08/23 12/15/23 Rx carvedilol 3.125 mg tablet 3.125 mg PO DAILY #90 tabs 12/08/23 12/15/23 Rx clopidogrel 75 mg tablet 75 mg PO DAILY #90 tabs 12/08/23 12/15/23 Rx empagliflozin 10 mg tablet 10 mg PO DAILY #90 tabs 12/08/23 12/15/23 Rx (Jardiance) spironolactone 25 mg tablet 12.5 mg (1/2 x 25 mg) PO DAILY #90 12/08/23 12/15/23 Rx tabs pantoprazole 40 mg granules 40 mg PO BID #180 ea 12/09/23 12/15/23 Rx delayed-release for susp in packet (Protonix) irbesartan 75 mg tablet 37.5 mg (1/2 x 75 mg) PO DAILY 90 12/14/23 12/15/23 Rx days #45 tabs New Prescriptions to Start Prescriptions: Allergies Allergy/AdvReac Type Severity Reaction Status Date / Time metformin AdvReac Vomiting/GI Verified 12/15/23 11:04 upset Exam Data for Last 24 hours Vital signs and Labs for Last 24 Hours: Temp Pulse Resp BP Pulse Ox O2 Del Method 98.2 F 73 18 122/64 94 L Room Air 12/15/23 15:52 12/15/23 15:52 12/15/23 15:52 12/15/23 15:52 12/15/23 15:52 12/15/23 15:52 Laboratory Results - last 24 hr 12/15/23 03:43: Blood Type A Positive, Antibody Screen Negative, Crossmatch (AHG) See Detail 12/15/23 12:10: WBC 10.5, RBC 2.76 L, Hgb 7.6 L, Hct 24.1 L, MCV 87.3, MCH 27.7, MCHC 31.8, RDW 14.1, Plt Count 379, MPV 9.6, Neut % (Auto) 80.3 H, Lymph % (Auto) 11.9, [place] % (Auto) 5.1, Eos % (Auto) 2.0, Baso % (Auto) 0.7, Neut # (Auto) 8.5 H, Lymph # (Auto) 1.3, [place] # (Auto) 0.5, Eos # (Auto) 0.2, Baso # (Auto) 0.1, Iron 34 L, TIBC 364, Iron Saturation 9.29802 L, Ferritin 15.2 12/15/23 16:27: Blood Type Confirm A Positive I & O for Last 24 hours: Intake & Output 12/12/23 12/13/23 12/14/23 12/15/23 23:59 23:59 23:59 23:59 Intake Total 0 / 0 Output Total 0 / 0 Balance 0 / 0 Weight 75.835 kg Constitutional Constitutional: no acute distress, obese and cooperative *Routine HEENT Exam Head: Present normocephalic Eye: Present EOMI and PERRL ENT: Present mucous membranes moist *Routine Neck Exam Neck: Present supple; Absent lymphadenopathy *Routine Respiratory Exam Respiratory: Present CTA bilaterally, diminished air movement, normal respiratory effort, able to speak in complete sentences and symmetric chest movement *Routine Cardiovascular Exam Cardiovascular: Present RRR, Normal S1 and Normal S2 *Routine Abdominal Exam Abdominal: Present soft and normoactive bowel sounds; Absent tenderness *Routine Rectal Exam Rectal:: deferred *Routine Genitalia Exam Genitalia:: deferred *Routine Extremities Exam Extremities: Present full ROM; Absent cyanosis, clubbing or edema *Routine Skin Exam Skin: Present warm; Absent rash *Routine Neurological Exam Neurological: Present alert, oriented X3, normal reflexes and moving all extremi ties Routine Psychiatric Exam Psychiatric: Present normal affect and good insight Assessment and Plan *Assessment and plan (1) Anemia: Status: Acute Category: Medical Code(s): D64.9 - Anemia, unspecified (2) HFrEF (heart failure with reduced ejection fraction): Status: Acute Category: Medical Code(s): I50.20 - Unspecified systolic (congestive) heart failure (3) CAD (coronary artery disease): Status: Acute Category: Medical Code(s): I25.10 - Atherosclerotic heart disease of [place] coronary artery without angina pectoris (4) Diabetes: Status: Chronic Qualifiers: Diabetes mellitus complication status: with hyperglycemia Diabetes mellitus long term care phlebotomist insulin use: without long term care phlebotomist use Diabetes mellitus type: type 2 Qualified Code(s): E11.65 - Type 2 diabetes mellitus with hyperglycemia Category: Medical Code(s): E11.9 - Type 2 diabetes mellitus without complications (5) Depression: Status: Chronic Qualifiers: Active/Remission status: currently active Depression Type: major depressive disorder Major depression episode severity: moderate Major depression recurrence: recurrent Qualified Code(s): F33.1 - Major depressive disorder, recurrent, moderate Category: Medical Code(s): F32.9 - Major depressive disorder, single episode, unspecified (6) GI bleed: Status: Acute Category: Medical Code(s): K92.2 - Gastrointestinal hemorrhage, unspecified Plan 68-year-old female with history of type 2 diabetes, hypertension, hyperlipidemia, hypothyroidism presenting to cardiology clinic for follow-up today. Found to have worsening anemia. Concern for GI bleed. Reports melenic stools. Discussed case with cardiology, request admission for transfusion and surgery eval for possible scope. I agreed to admit for further management. Hemoglobin 7.6 today. Down from 8.6 yesterday. Typed and crossed, awaiting transfusion at this time. Necessitating inpatient management. Surgery consulted and will perform EGD in the morning. Problems addressed as follows: Acute blood loss anemia Iron deficiency Acute GI bleed -Trend of labs shows decrease in hemoglobin since admission earlier this month from a hemoglobin of 10 down to 7.6 today. Having melenic stools with occasional bright red -Typed and crossed for 2 units of packed red blood cells. Will transfuse today. Given recent NSTEMI and stenting, hemoglobin transfusion threshold less than 10. -2-hour posttransfusion H&H ordered -Initiate pantoprazole 80 mg IV x 1 and 40 mg IV twice daily -Given necessity of aspirin and Plavix, patient at high risk for decompensation. -Discussed case with surgery, plan for EGD in the morning. N.p.o. at midnight Heart failure with preserved ejection fraction CAD -Recent admission earlier this month for CAD and acute heart failure with prese rved ejection fraction. Status post cath 11/30/2023 -Currently on aspirin 81 mg daily and Plavix 75 mg daily. Will hold pending EGD findings. Plan to resume after procedure. -Continue goal-directed therapy with Lipitor 40 mg daily, irbesartan 37.5 mg daily, Jardiance 10 mg daily, carvedilol 3.125 mg twice daily, and Aldactone 12.5 mg daily CKD 3:Kidney function improved on labs earlier last week. Creatinine 1.1, back to baseline. Repeat CBC, CMP, magnesium ordered for the morning. Type 2 diabetes -A1c 7.3 earlier this month. Continue insulin at decreased dose of Lantus 15 units tonight given n.p.o. status after midnight. -Sliding scale insulin with fingersticks ACHS - Jardiance 10 mg daily for diabetes and heart disease above. Depression, chronic and stable, continue home citalopram 40 mg daily Restless leg: Home gabapentin 300 mg nightly Full code Holding anticoagulation in the setting of GI bleed Cardiac diet until midnight, n.p.o. thereafter
[2023-12-15] MEDS: 0.9 % SODIUM CHLORIDE 250 ML 25 ML IV (17:45)
[2023-12-15] MEDS: PANTOPRAZOLE SODIUM 80 MG in 0.9 % SODIUM CHLORIDE 100 ML 100 MG IV (18:59)
[2023-12-15 20:15] LABS: POC Glucose,Bedside 247 (70-110)
[2023-12-15] MEDS: ATORVASTATIN 40MG TABLET 40 MG PO (20:19)
[2023-12-15] MEDS: GABAPENTIN 300MG CAPSULE 300 MG PO (20:19)
[2023-12-15] MEDS: INSULIN GLARGINE 100 UNITS/ML 3ML FLEXPEN 15 UNIT SQ (20:20)
[2023-12-15] MEDS: humaLOG 100 UNITS/ML 10ML VIAL (SSI) SQ (20:21)
[2023-12-16] VITALS (20 sets, daily range): BP systolic 92–163; BP diastolic 45–87; PULSE 64–82; RESP 15–18; TEMP 36.6–37.1; O2SAT 91–98; BMI 31.1
[2023-12-16 02:06] LABS: Basophils # 0.1 K/mm3 (0-0.2); Basophils % 0.6 % (0.1-2.0); Eosinophils # 0.2 K/mm3 (0.0-0.4); Eosinophils % 1.4 % (0.1-12.0); Hematocrit 28.7 % (37.0-47.0); Lymphocytes # 1.8 K/mm3 (0.7-4.5); Lymphocytes % 15.4 % (10-50); Mean Corpuscular HGB Conc 32.9 g/dL (31.8-35.4); Mean Corpuscular Hemoglobin 27.6 pg (27.0-31.2); Mean Corpuscular Volume 83.9 fl (81-99); Monocytes # 0.7 K/mm3 (0.1-1.0); Monocytes % 5.7 % (1.7-9.3); Neutrophils # 8.9 K/mm3 (1.8-7.8); Neutrophils % 76.8 % (37.0-80.0); Platelet Count 312 K/mm3 (142-424); Red Blood Count 3.42 M/mm3 (4.20-5.40); Red Cell Distribution Width 15.4 % (11.5-17.5); White Blood Count 11.6 K/mm3 (4.8-10.8)
[2023-12-16 02:10] LABS: Alanine Aminotransferase 19 U/L (12-78); Albumin Level 3.5 g/dl (3.5-5.0); Albumin/Globulin Ratio 1.3 (1.1-1.8); Alkaline Phosphatase 77 U/L (38-126); Anion Gap 12.7 mEq/L (5-15); Aspartate Amino Transferase 23 U/L (14-36); Blood Urea Nitrogen 30 mg/dl (7-17); Calcium 8.8 mg/dl (8.4-10.2); Carbon Dioxide 25 mmol/L (22.0-30.0); Chloride 104 mmol/L (98-107); Creatinine Clearance Estimated 44 mL/min (50-200); Estimated Glomerular Filt Rate 35 ml/min (>60); GFR (African American) 42 ML/MIN (>60); Globulin 2.6 g/dL (1.3-3.2); Glucose 144 mg/dl (74-100); Hemoglobin 9.5 g/dL (12.2-16.2); Magnesium 2.2 mg/dl (1.6-2.3); Potassium 4.7 mmoL/L (3.5-5.1); Sodium 137 mmol/L (136-145); Total Protein,Serum 6.1 g/dl (6.3-8.2)
[2023-12-16] MEDS: PANTOPRAZOLE 40MG VIAL 40 MG IV ×3 (02:32→20:41)
[2023-12-16 06:21] LABS: POC Glucose,Bedside 161 (70-110)
--- NOTE | 2023-12-16 06:38 | PC.NURSE ---
Patient has left floor with OR at 6:38.
--- NOTE | 2023-12-16 06:40 | EXP.SURG.CON ---
History of Present Illness *Admission Date: 12/15/23 *Reason for visit:: Gastrointestinal hemorrhage *History of present illness: This is a 68-year-old female seen in consultation after being admitted for gastrointestinal hemorrhage. She is status post recent coronary stent placement. Over the past few days she has noticed a large volume of what she describes as pure blood per rectum. On further questioning she states that it is mixed bright red blood and some dark blood . Please see HPI forwarded from admission H&P below. Forwarded from admission H&P: Ms. Celaya is a 68-year-old female with history of type 2 diabetes, hypertension, hyperlipidemia, hypothyroidism. She was recently admitted earlier this month for difficulty breathing and chest pain. Found to have NSTEMI. Taken for heart cath on 11/29 with severe LAD disease received multiple stents and was discharged home in stable condition with mild AMY showing improvement. Has been following with cardiology and has been noted to have progressing anemia since her left heart cath and initiation of dual antiplatelet therapy. Was seen earlier today in cardiology clinic where her hemoglobin was noted to drop from 8.6 yesterday to 7.6 today. Patient reports that she has had intermittent black and red stools for the past few weeks. Has felt more weak and fatigued. Denies any nausea, chest pain, shortness of breath, syncope. Does have some intermittent heartburn. Has been taking Protonix for about a week with no significant improvement. Stable on room air. Due to lab abnormality today, cardiology requested admission for further management. On arrival to the floor, patient is pale but appears stable and at baseline level of mentation. Denies any fevers. On room air. Surgery consulted to evaluate patient with plan for EGD tomorrow. Has had a colonoscopy before with no abnormalities. Denies any history of EGD or gastric ulcer disease that she knows of. Does not drink and is a former smoker but has not smoked in many years [facility] Disclaimer: The information contained in this section may have been updated after the patient was seen, as this information can be updated by other users. Medical History HFrEF (heart failure with reduced ejection fraction) History of fracture of right ankle Fracture of phalanx of right hand, closed Diabetes Asthma Hyperlipidemia (~03/08/18) Osteoarthritis Restless leg syndrome Depression Surgical History S/P cardiac cath History of appendectomy History of ankle surgery History of lumpectomy of right breast History of knee surgery H/O wrist surgery H/O shoulder surgery Social History (Updated 12/15/23 @ 18:18 by Era Vasquez RN) Smoking Status: Former smoker alcohol intake: never substance use type: denies use current occupational status: employed Travel in the last 8 weeks: None Meds Home Medications and Allergies Home Medications Medication Instructions Recorded Confirmed Type cholecalciferol (vitamin D3) 1,250 1,250 mcg PO WEEKLY #5 caps 07/23/21 12/15/23 Rx mcg (50,000 unit) capsule cholecalciferol (vitamin D3) 25 25 mcg PO DAILY #90 caps 07/23/21 12/15/23 Rx mcg (1,000 unit) capsule pen needle, diabetic 31 gauge x #50 ea 07/23/21 12/15/23 Rx 5/16 (Comfort EZ Pen [place]) gabapentin 300 mg capsule 300 mg PO HS 04/10/22 12/15/23 History albuterol sulfate 90 mcg/actuation 2 inh inhalation Q4HP PRN Wheezing 11/30/23 12/15/23 History aerosol inhaler citalopram 40 mg tablet 40 mg PO DAILY 11/30/23 12/15/23 History nabumetone 750 mg tablet 750 mg PO BID 11/30/23 12/15/23 History insulin glargine 100 unit/mL (3 25 unit (0.25 mL) SQ HS 30 days #0 12/02/23 12/15/23 Rx mL) subcutaneous pen (Basaglar mL KwikPen U-100 Insulin) aspirin 81 mg tablet,delayed 81 mg PO DAILY #90 tabs 12/08/23 12/15/23 Rx release (Adult Low Dose Aspirin) atorvastatin 40 mg tablet 40 mg PO HS #90 tabs 12/08/23 12/15/23 Rx carvedilol 3.125 mg tablet 3.125 mg PO DAILY #90 tabs 12/08/23 12/15/23 Rx clopidogrel 75 mg tablet 75 mg PO DAILY #90 tabs 12/08/23 12/15/23 Rx empagliflozin 10 mg tablet 10 mg PO DAILY #90 tabs 12/08/23 12/15/23 Rx (Jardiance) spironolactone 25 mg tablet 12.5 mg (1/2 x 25 mg) PO DAILY #90 12/08/23 12/15/23 Rx tabs pantoprazole 40 mg granules 40 mg PO BID #180 ea 12/09/23 12/15/23 Rx delayed-release for susp in packet (Protonix) irbesartan 75 mg tablet 37.5 mg (1/2 x 75 mg) PO DAILY 90 12/14/23 12/15/23 Rx days #45 tabs New Prescriptions to Start Prescriptions: Allergies Allergy/AdvReac Type Severity Reaction Status Date / Time metformin AdvReac Vomiting/GI Verified 12/15/23 11:04 upset Exam (Inpt) Vital signs and Labs for Last 24 Hours: Temp Pulse Resp BP Pulse Ox O2 Del Method 98.3 F 75 18 131/65 95 Room Air 12/16/23 04:00 12/16/23 04:00 12/16/23 04:00 12/16/23 04:00 12/16/23 04:00 12/16/23 05:00 Laboratory Results - last 24 hr 12/15/23 03:43: Blood Type A Positive, Antibody Screen Negative, Crossmatch (AHG) See Detail 12/15/23 12:10: WBC 10.5, RBC 2.76 L, Hgb 7.6 L, Hct 24.1 L, MCV 87.3, MCH 27.7, MCHC 31.8, RDW 14.1, Plt Count 379, MPV 9.6, Neut % (Auto) 80.3 H, Lymph % (Auto) 11.9, [place] % (Auto) 5.1, Eos % (Auto) 2.0, Baso % (Auto) 0.7, Neut # (Auto) 8.5 H, Lymph # (Auto) 1.3, [place] # (Auto) 0.5, Eos # (Auto) 0.2, Baso # (Auto) 0.1, Iron 34 L, TIBC 364, Iron Saturation 9.10714 L, Ferritin 15.2 12/15/23 16:27: Blood Type Confirm A Positive 12/15/23 20:08: POC Glucose 247 H 12/16/23 01:55: WBC 11.6 H, RBC 3.42 L, Hgb 9.5 L D, Hct 28.7 L, MCV 83.9, MCH 27.6, MCHC 32.9, RDW 15.4, Plt Count 312, MPV 10.0, Neut % (Auto) 76.8, Lymph % (Auto) 15.4, [place] % (Auto) 5.7, Eos % (Auto) 1.4, Baso % (Auto) 0.6, Neut # (Auto) 8.9 H, Lymph # (Auto) 1.8, [place] # (Auto) 0.7, Eos # (Auto) 0.2, Baso # (Auto) 0.1, Sodium 137, Potassium 4.7, Chloride 104, Carbon Dioxide 25, Anion Gap 12.7, BUN 30 H, Creatinine 1.50 H, Estimated Creat Clear 44, Estimated GFR 35 L, Est GFR ( Amer) 42 L, Glucose 144 H, Calcium 8.8, Magnesium 2.2, Total Bilirubin 1.0, AST 23, ALT 19, Alkaline Phosphatase 77, Total Protein 6.1 L, Albumin 3.5, Globulin 2.6, Albumin/Globulin Ratio 1.3 12/16/23 06:02: POC Glucose 161 H I & O for Labs for Last 24 Hours: Intake & Output 12/13/23 12/14/23 12/15/23 12/16/23 11:59 11:59 11:59 11:59 Intake Total 770 / 770 Output Total 0 / 0 Balance 770 / 770 Weight 176 lb 1.6 oz Constitutional: no acute distress Respiratory: Absent respiratory distress Cardiac: Absent Tachycardia Neuro: Present alert, awake and oriented x 3 Results Labs 12/16/23 01:55 12/16/23 01:55 Labs: Laboratory Results - last 24 hr 12/15/23 03:43: Blood Type A Positive, Antibody Screen Negative, Crossmatch (AHG) See Detail 12/15/23 12:10: WBC 10.5, RBC 2.76 L, Hgb 7.6 L, Hct 24.1 L, MCV 87.3, MCH 27.7, MCHC 31.8, RDW 14.1, Plt Count 379, MPV 9.6, Neut % (Auto) 80.3 H, Lymph % (Auto) 11.9, [place] % (Auto) 5.1, Eos % (Auto) 2.0, Baso % (Auto) 0.7, Neut # (Auto) 8.5 H, Lymph # (Auto) 1.3, [place] # (Auto) 0.5, Eos # (Auto) 0.2, Baso # (Auto) 0.1, Iron 34 L, TIBC 364, Iron Saturation 9.89015 L, Ferritin 15.2 12/15/23 16:27: Blood Type Confirm A Positive 12/15/23 20:08: POC Glucose 247 H 12/16/23 01:55: WBC 11.6 H, RBC 3.42 L, Hgb 9.5 L D, Hct 28.7 L, MCV 83.9, MCH 27.6, MCHC 32.9, RDW 15.4, Plt Count 312, MPV 10.0, Neut % (Auto) 76.8, Lymph % (Auto) 15.4, [place] % (Auto) 5.7, Eos % (Auto) 1.4, Baso % (Auto) 0.6, Neut # (Auto) 8.9 H, Lymph # (Auto) 1.8, [place] # (Auto) 0.7, Eos # (Auto) 0.2, Baso # (Auto) 0.1, Sodium 137, Potassium 4.7, Chloride 104, Carbon Dioxide 25, Anion Gap 12.7, BUN 30 H, Creatinine 1.50 H, Estimated Creat Clear 44, Estimated GFR 35 L, Est GFR ( Amer) 42 L, Glucose 144 H, Calcium 8.8, Magnesium 2.2, Total Bilirubin 1.0, AST 23, ALT 19, Alkaline Phosphatase 77, Total Protein 6.1 L, Albumin 3.5, Globulin 2.6, Albumin/Globulin Ratio 1.3 12/16/23 06:02: POC Glucose 161 H Assessment and Plan *Assessment and plan (1) GI bleed: Status: Acute Qualifiers: GI bleed type/associated pathology: unspecified gastrointestinal hemorrhage type Qualified Code(s): K92.2 - Gastrointestinal hemorrhage, unspecified Category: Medical Code(s): K92.2 - Gastrointestinal hemorrhage, unspecified Plan: Upper gastrointestinal hemorrhage with rapid advancement versus lower gastrointestinal hemorrhage. The patient is currently stable status post admission and transfusion of 2 units PRBCs. Initially to proceed with esophagogastroduodenoscopy. Evaluation of the remainder of the gastrointestinal tract pending results of EGD.
--- NOTE | 2023-12-16 06:53 | EXP.ANES.CKL ---
[facility] Disclaimer: The information contained in this section may have been updated after the patient was seen, as this information can be updated by other users. Medical History HFrEF (heart failure with reduced ejection fraction) History of fracture of right ankle Fracture of phalanx of right hand, closed Diabetes Asthma Hyperlipidemia (~03/08/18) Osteoarthritis Restless leg syndrome Depression Surgical History S/P cardiac cath History of appendectomy History of ankle surgery History of lumpectomy of right breast History of knee surgery H/O wrist surgery H/O shoulder surgery Social History (Updated 12/15/23 @ 18:18 by Era Vasquez RN) Smoking Status: Former smoker alcohol intake: never substance use type: denies use current occupational status: employed Travel in the last 8 weeks: None [facility] Anesthesia Checklist Patient Identification Patient Identification: Arm Band Structural Data Admitted From: Inpatient Planned Operative Procedure/s: EGD Consent for Planned Operative Procedure(s) Verified: Yes Verified Documents: Surgical Consent and History and Physical NPO Status Verified Time NPO: 00:00 Additional verifications Anesthesia Reactions: No Airway Assessment Mallampati Score:: Class II C-Spine Mobility Assessed: Yes TMJ Mobility Assessed: Yes Dentition: Good Dentition Neurological Assessment Level of Consciousness: Awake, Alert and Appropriate Anesthesia Plan Anesthesia Risk discussed: Yes Anesthesia Plan: Verified ASA Class: III Anesthesia Type: MAC
--- NOTE | 2023-12-16 06:55 | PC.NURSE ---
vss, npo since dinner last hs, egd this am, pt received 2 units of prbc's.
--- NOTE | 2023-12-16 07:09 | [facility].SCOPE ---
Procedure: Date: 12/16/23 Patient Date of :: 1955 Procedure Performed:: Esophagogastroduodenoscopy with biopsy Indications:: Gastrointestinal hemorrhage Performing Provider:: Ángel Tirado MD Referring Provider:: . Sedation:: Monitored anesthesia care Procedure:: After informed consent was obtained the patient was taken to the endoscopy suite. Sedation ensued after the patient was transferred to the left lateral decubitus position. Pulse, blood pressure, and oxygen saturation were monitored throughout the procedure. The endoscope was advanced beyond the duodenal bulb. Retroflexion within the gastric lumen was accomplished. The gastroscope was carefully removed and the patient was transferred to recovery in stable condition. Please see findings and specimens below for detail. Findings:: Gastroesophageal junction at 40 cm Small sliding hiatal hernia Streaking distal gastritis No obvious ulceration or sign of active/recent hemorrhage Specimens:: Antral biopsy Recommendations:: Proton pump inhibition Continue serial hemoglobin/hematocrit Continue ongoing investigation for source of gastrointestinal hemorrhage (see comment below) Complications:: No immediate Estimated blood obtained (mL): 1 Comment:: The patient may urgently require inpatient colonoscopy; however, she is currently stable and ideally could avoid undergoing bowel preparation (given the possible increased risk for inducing recurrent hemorrhage). In addition, if she shows evidence of significant/active gastrointestinal hemorrhage she may be better served by transfer to tertiary facility capable of angiographic evaluation and possible embolization. Other modalities of evaluation may also be required in the near future; however, they will likely be deferred to the outpatient setting (UGI/SBFT, capsule endoscopy, etc.). Colonoscopy Component Colonoscopy Component Was a colonoscopy performed during today's procedure?: No
[2023-12-16] MEDS: SUCRALFATE 1GM/10ML SUSP UDC 1 GM PO ×3 (09:45→20:41)
[2023-12-16] MEDS: ASPIRIN EC 81MG TABLET 81 MG PO (09:46)
[2023-12-16] MEDS: EMPAGLIFLOZIN 10MG TABLET 10 MG PO (09:46)
[2023-12-16] MEDS: CARVEDILOL 3.125MG TABLET 3.125 MG PO (09:46)
[2023-12-16] MEDS: CLOPIDOGREL 75MG TAB 75 MG PO (09:46)
[2023-12-16] MEDS: IRBESARTAN 75MG TABLET 37.5 MG PO (09:46)
[2023-12-16] MEDS: CITALOPRAM 40MG TABLET 40 MG PO (09:46)
[2023-12-16] MEDS: SPIRONOLACTONE 25MG TABLET 12.5 MG PO (09:47)
[2023-12-16] MEDS: SODIUM CHLORIDE 0.9% 10ML VIAL 10 ML IV (09:53)
--- NOTE | 2023-12-16 11:45 | PC.NURSE ---
Pt states she had a BM with traces of blood. Not observed by stafff due to Pt flushing toilet. Pt was educated to not flush toilet.
[2023-12-16 11:55] LABS: POC Glucose,Bedside 144 (70-110)
--- NOTE | 2023-12-16 12:26 | P.PN_ITS ---
Subjective *Date: 12/16/23 *Time: 18:27 Interval history: Taken for scope this morning. No overt bleeding, mild gastritis. Patient denies any abdominal pain, shortness of breath, chest pain, nausea or vomiting. No further black stools. Did have a blood-tinged stool this afternoon with scant blood in the toilet, stool was brown however. On room air. Afebrile. Medical Exam Vital signs and Labs for Last 24 Hours: Vital Signs Temp Pulse Pulse Resp BP BP Pulse Ox 12/16/23 11:10 97.9 F 77 18 128/72 97 12/16/23 11:00 12/16/23 10:10 98.2 F 72 16 138/73 98 12/16/23 09:40 97.9 F 74 17 122/71 96 12/16/23 09:10 98.1 F 75 17 136/72 96 12/16/23 09:00 12/16/23 08:40 98.1 F 69 16 132/68 96 12/16/23 08:25 98.1 F 68 16 130/87 93 L 12/16/23 08:10 98.2 F 68 17 123/73 94 L 12/16/23 07:55 98.2 F 82 17 112/65 94 L 12/16/23 07:47 12/16/23 07:40 98.2 F 67 17 109/59 L 94 L 12/16/23 07:25 67 18 92/45 L 94 L 12/16/23 07:15 98.6 F 64 18 99/53 L 91 L 12/16/23 06:58 12/16/23 06:35 12/16/23 05:00 12/16/23 04:00 98.3 F 75 18 131/65 95 12/16/23 03:00 12/16/23 01:10 98.8 F 76 18 123/67 96 12/16/23 01:00 12/16/23 00:10 98.5 F 75 18 138/63 97 12/15/23 23:10 98.7 F 77 18 131/66 96 12/15/23 23:00 12/15/23 22:45 99 F 77 18 112/54 L 95 12/15/23 22:40 98.4 F 74 18 116/64 94 L 12/15/23 22:25 98.4 F 74 16 128/64 96 12/15/23 22:20 98.5 F 74 14 114/78 95 12/15/23 22:15 99.1 F 74 14 129/67 95 12/15/23 22:11 98.6 F 74 16 127/67 96 12/15/23 22:03 98.9 F 74 14 133/65 97 12/15/23 21:45 99.2 F 83 18 135/60 97 12/15/23 21:00 12/15/23 20:45 98.9 F 79 20 134/62 96 12/15/23 20:00 12/15/23 20:00 98.4 F 80 18 122/62 97 12/15/23 19:00 12/15/23 19:00 98.5 F 77 19 125/55 L 98 12/15/23 18:45 98.4 F 78 20 103/48 L 97 12/15/23 18:30 98.4 F 77 20 112/49 L 99 12/15/23 18:15 98.8 F 77 20 105/52 L 98 12/15/23 18:10 99.3 F 77 20 113/53 L 98 12/15/23 18:05 98.8 F 77 20 134/66 98 12/15/23 18:00 98.5 F 75 22 131/65 96 12/15/23 17:45 98.5 F 75 20 145/72 H 99 12/15/23 17:00 12/15/23 15:52 98.2 F 73 18 122/64 94 L O2 Del Method O2 Flow Rate 12/16/23 11:10 Room Air 12/16/23 11:00 Room Air 12/16/23 10:10 Room Air 12/16/23 09:40 Room Air 12/16/23 09:10 Room Air 12/16/23 09:00 Room Air 12/16/23 08:40 Room Air 12/16/23 08:25 Room Air 12/16/23 08:10 Room Air 12/16/23 07:55 Room Air 12/16/23 07:47 Room Air 12/16/23 07:40 Room Air 12/16/23 07:25 Room Air 12/16/23 07:15 Room Air 12/16/23 06:58 Nasal Cannula 5 12/16/23 06:35 Room Air 12/16/23 05:00 Room Air 12/16/23 04:00 Room Air 12/16/23 03:00 Room Air 12/16/23 01:10 12/16/23 01:00 Room Air 12/16/23 00:10 12/15/23 23:10 12/15/23 23:00 Room Air 12/15/23 22:45 12/15/23 22:40 12/15/23 22:25 12/15/23 22:20 12/15/23 22:15 12/15/23 22:11 12/15/23 22:03 12/15/23 21:45 12/15/23 21:00 Room Air 12/15/23 20:45 12/15/23 20:00 Room Air 12/15/23 20:00 12/15/23 19:00 Room Air 12/15/23 19:00 12/15/23 18:45 12/15/23 18:30 12/15/23 18:15 12/15/23 18:10 12/15/23 18:05 12/15/23 18:00 12/15/23 17:45 12/15/23 17:00 Room Air 12/15/23 15:52 Room Air Intake and Output 12/15/23 12/16/23 12/16/23 23:59 07:59 15:59 Intake Total 520 / 520 250 / 250 Output Total 0 / 0 0 / 0 0 / 0 Balance 520 / 520 250 / 250 0 / 250 Intake: Intake, Oral Amount 270 / 270 Intake (Blood Product) Amt 250 / 250 250 / 250 Red Blood Cells Unit 0 / 0 250 / 250 [id number] Red Blood Cells Unit 250 / 250 [id number] Output: Output, Urine Amount 0 / 0 0 / 0 0 / 0 Other: Number of Unmeasured Voids 1 1 1 Weight 79.878 kg Patient Weight 12/16/23 23:59 Weight 79.878 kg Laboratory Results - last 24 hr 12/15/23 03:43: Blood Type A Positive, Antibody Screen Negative, Crossmatch (AHG) See Detail 12/15/23 12:10: WBC 10.5, RBC 2.76 L, Hgb 7.6 L, Hct 24.1 L, MCV 87.3, MCH 27.7, MCHC 31.8, RDW 14.1, Plt Count 379, MPV 9.6, Neut % (Auto) 80.3 H, Lymph % (Auto) 11.9, [place] % (Auto) 5.1, Eos % (Auto) 2.0, Baso % (Auto) 0.7, Neut # (Auto) 8.5 H, Lymph # (Auto) 1.3, [place] # (Auto) 0.5, Eos # (Auto) 0.2, Baso # (Auto) 0.1, Iron 34 L, TIBC 364, Iron Saturation 9.82249 L, Ferritin 15.2 12/15/23 16:27: Blood Type Confirm A Positive 12/15/23 20:08: POC Glucose 247 H 12/16/23 01:55: WBC 11.6 H, RBC 3.42 L, Hgb 9.5 L D, Hct 28.7 L, MCV 83.9, MCH 27.6, MCHC 32.9, RDW 15.4, Plt Count 312, MPV 10.0, Neut % (Auto) 76.8, Lymph % (Auto) 15.4, [place] % (Auto) 5.7, Eos % (Auto) 1.4, Baso % (Auto) 0.6, Neut # (Auto) 8.9 H, Lymph # (Auto) 1.8, [place] # (Auto) 0.7, Eos # (Auto) 0.2, Baso # (Auto) 0.1, Sodium 137, Potassium 4.7, Chloride 104, Carbon Dioxide 25, Anion Gap 12.7, BUN 30 H, Creatinine 1.50 H, Estimated Creat Clear 44, Estimated GFR 35 L, Est GFR ( Amer) 42 L, Glucose 144 H, Calcium 8.8, Magnesium 2.2, Total Bilirubin 1.0, AST 23, ALT 19, Alkaline Phosphatase 77, Total Protein 6.1 L, Albumin 3.5, Globulin 2.6, Albumin/Globulin Ratio 1.3 12/16/23 06:02: POC Glucose 161 H 12/16/23 11:43: POC Glucose 144 H I & O for Labs for Last 24 Hours: Intake & Output 12/13/23 12/14/23 12/15/23 12/16/23 23:59 23:59 23:59 23:59 Intake Total 520 / 520 250 / 250 Output Total 0 / 0 0 / 0 Balance 520 / 520 250 / 250 Weight 75.835 kg 79.878 kg Constitutional: Present no acute distress and obese Head: Present atraumatic and normocephalic ENT: Present normal exam Neck: Present normal inspection Respiratory: Present normal respiratory effort; Absent rhonchi, wheezes or crackles Cardiac: Present Reg Rate and Rhythm GI: Present soft and normal bowel sounds; Absent distention or tenderness Extremities: Present normal inspection and full ROM Skin: Present intact; Absent erythema Neuro: Present Grossly Intact, alert, awake, oriented x 3 and moves all extremities Assessment and Plan *Assessment and plan (1) Anemia: Status: Acute Qualifiers: Anemia type: other cause Other causes of anemia: acute posthemorrhagic Qualified Code(s): D62 - Acute posthemorrhagic anemia Category: Medical Code(s): D64.9 - Anemia, unspecified (2) GI bleed: Status: Acute Qualifiers: GI bleed type/associated pathology: unspecified gastrointestinal hemorrhage type Qualified Code(s): K92.2 - Gastrointestinal hemorrhage, unspecified Category: Medical Code(s): K92.2 - Gastrointestinal hemorrhage, unspecified (3) HFrEF (heart failure with reduced ejection fraction): Status: Acute Category: Medical Code(s): I50.20 - Unspecified systolic (congestive) heart failure (4) CAD (coronary artery disease): Status: Acute Category: Medical Code(s): I25.10 - Atherosclerotic heart disease of [place] coronary artery without angina pectoris (5) Diabetes: Status: Chronic Qualifiers: Diabetes mellitus type: type 2 Diabetes mellitus correction insulin use: without termite technician use Diabetes mellitus complication status: with hyperglycemia Qualified Code(s): E11.65 - Type 2 diabetes mellitus with hyperglycemia Category: Medical Code(s): E11.9 - Type 2 diabetes mellitus without complications (6) Depression: Status: Chronic Qualifiers: Depression Type: major depressive disorder Major depression recurrence: recurrent Active/Remission status: currently active Major depression episode severity: moderate Qualified Code(s): F33.1 - Major depressive disorder, recurrent, moderate Category: Medical Code(s): F32.9 - Major depressive disorder, single episode, unspecified Plan 68-year-old female with history of type 2 diabetes, hypertension, hyperlipidemia, hypothyroidism presenting to cardiology clinic for follow-up today. Found to have worsening anemia. Concern for GI bleed. Reports melenic stools. Discussed case with cardiology, request admission for transfusion and surgery eval for possible scope. I agreed to admit for further management. Hemoglobin 7.6 today. Down from 8.6 yesterday. Typed and crossed, awaiting transfusion at this time. Necessitating inpatient management. Responded well to transfusion. Taken for EGD this morning. Continues to require inpatient management. Problems addressed as follows: Acute blood loss anemia Iron deficiency Acute GI bleed -Status post 2 units packed red blood cells. Hemoglobin responded well from 7.6-9.5. Repeat H&H ordered for this afternoon with CBC, CMP, magnesium ordered for the morning. - Given recent NSTEMI and stenting, hemoglobin transfusion threshold less than 9 -Continue pantoprazole 40 mg IV twice daily -Given necessity of aspirin and Plavix, patient at high risk for decompensation. -Discussed case with surgery, EGD with mild gastritis, no overt bleeding or sig nificant ulcer. Clear liquid diet for now. Will evaluate for possible need for colonoscopy in the morning pending hemoglobin stability. Heart failure with preserved ejection fraction CAD -Recent admission earlier this month for CAD and acute heart failure with preserved ejection fraction. Status post cath 11/30/2023 -Currently on aspirin 81 mg daily and Plavix 75 mg daily. -Continue goal-directed therapy with Lipitor 40 mg daily, irbesartan 37.5 mg daily, Jardiance 10 mg daily, carvedilol 3.125 mg twice daily, and Aldactone 12.5 mg daily CKD 3:Kidney function improved on labs earlier last week. Creatinine bumped to 1.5 today, BUN 30. Type 2 diabetes -A1c 7.3 earlier this month. Continue insulin at decreased dose of Lantus 15 units tonight given n.p.o. status after midnight. -Sliding scale insulin with fingersticks ACHS - Jardiance 10 mg daily for diabetes and heart disease above. Depression, chronic and stable, continue home citalopram 40 mg daily Restless leg: Home gabapentin 300 mg nightly Full code Holding anticoagulation in the setting of GI bleed Clear liquid diet
[2023-12-16 14:27] LABS: Transferrin 286 mg/dL (192-364)
[2023-12-16 16:24] LABS: POC Glucose,Bedside 117 (70-110)
--- NOTE | 2023-12-16 17:42 | PC.NURSE ---
Pt is currently sleeping in bed. Has denied any discomfort. Has had one stool that was visibly seen by staff that was blood tinged. Pt also stated previously this shift that she had a BM with blood in it. Not visibly seen by staff. made aware. Pt will have repeat H&H this evening. VSS. Call light within reach.
[2023-12-16 18:11] LABS: Hematocrit 29.4 % (37.0-47.0); Hemoglobin 9.5 g/dL (12.2-16.2)
[2023-12-16] MEDS: ATORVASTATIN 40MG TABLET 40 MG PO (20:41)
[2023-12-16] MEDS: GABAPENTIN 300MG CAPSULE 300 MG PO (20:41)
[2023-12-16 20:45] LABS: POC Glucose,Bedside 99 (70-110)
[2023-12-17 04:00] VITALS: BP 138/70; PULSE 75; RESP 16; TEMP 37; O2SAT 93; BMI 31.1
[2023-12-17] MEDS: SUCRALFATE 1GM/10ML SUSP UDC 1 GM PO ×3 (04:22→14:02)
--- NOTE | 2023-12-17 04:49 | PC.NURSE ---
PATIENT HAS HAD A GOOD NIGHT. DENIES PAIN/DISCOMFORT. NO BLOODY STOOLS REPORTED THIS SHIFT. VITAL SIGNS STABLE. NO FEVERS. FAMILY MEMBER AT BEDSIDE.
[2023-12-17 05:38] LABS: POC Glucose,Bedside 89 (70-110)
[2023-12-17 06:40] LABS: Basophils # 0.1 K/mm3 (0-0.2); Basophils % 0.8 % (0.1-2.0); Eosinophils # 0.3 K/mm3 (0.0-0.4); Hematocrit 28.3 % (37.0-47.0); Hemoglobin 9.2 g/dL (12.2-16.2); Lymphocytes # 1.4 K/mm3 (0.7-4.5); Lymphocytes % 14.8 % (10-50); Mean Corpuscular HGB Conc 32.5 g/dL (31.8-35.4); Mean Corpuscular Hemoglobin 28.1 pg (27.0-31.2); Mean Corpuscular Volume 86.4 fl (81-99); Mean Platelet Volume 9.5 fl (7.4-10.4); Monocytes # 0.6 K/mm3 (0.1-1.0); Neutrophils % 75.4 % (37.0-80.0); Platelet Count 314 K/mm3 (142-424); Red Blood Count 3.27 M/mm3 (4.20-5.40); Red Cell Distribution Width 15.6 % (11.5-17.5); White Blood Count 9.2 K/mm3 (4.8-10.8)
[2023-12-17 06:48] LABS: Chloride 110 mmol/L (98-107)
[2023-12-17 06:49] LABS: Potassium 4.2 mmoL/L (3.5-5.1); Sodium 138 mmol/L (136-145)
[2023-12-17 06:51] LABS: Alanine Aminotransferase 17 U/L (12-78); Aspartate Amino Transferase 26 U/L (14-36); Blood Urea Nitrogen 21 mg/dl (7-17); Creatinine Clearance Estimated 57 mL/min (50-200); Estimated Glomerular Filt Rate 45 ml/min (>60); GFR (African American) 54 ML/MIN (>60)
[2023-12-17 06:52] LABS: Albumin Level 3.3 g/dl (3.5-5.0); Albumin/Globulin Ratio 1.3 (1.1-1.8); Alkaline Phosphatase 82 U/L (38-126); Anion Gap 10.2 mEq/L (5-15); Bilirubin,Total 0.5 mg/dl (0.2-1.3); Calcium 8.8 mg/dl (8.4-10.2); Carbon Dioxide 22 mmol/L (22.0-30.0); Globulin 2.6 g/dL (1.3-3.2); Glucose 81 mg/dl (74-100); Magnesium 2.1 mg/dl (1.6-2.3); Total Protein,Serum 5.9 g/dl (6.3-8.2)
[2023-12-17 08:00] VITALS: BP 154/74; TEMP 36.3; O2SAT 97
[2023-12-17] MEDS: IRBESARTAN 75MG TABLET 37.5 MG PO (08:38)
[2023-12-17] MEDS: SPIRONOLACTONE 25MG TABLET 12.5 MG PO (08:38)
[2023-12-17] MEDS: ASPIRIN EC 81MG TABLET 81 MG PO (08:38)
[2023-12-17] MEDS: CITALOPRAM 40MG TABLET 40 MG PO (08:38)
[2023-12-17] MEDS: CARVEDILOL 3.125MG TABLET 3.125 MG PO (08:39)
[2023-12-17] MEDS: SODIUM CHLORIDE 0.9% 10ML VIAL 10 ML IV (08:39)
[2023-12-17] MEDS: PANTOPRAZOLE 40MG VIAL 40 MG IV (08:39)
[2023-12-17] MEDS: EMPAGLIFLOZIN 10MG TABLET 10 MG PO (08:39)
[2023-12-17] MEDS: CLOPIDOGREL 75MG TAB 75 MG PO (08:39)
--- NOTE | 2023-12-17 09:35 | P.PN_ITS ---
Subjective Patient reports: no new complaints Narrative: The patient has no significant complaints. She states that her last few bowel movements did have some bright red blood . She states that initially her stools had black blood and some red blood . Per nursing staff, she had essentially brown bowel movements with some specks/streaks of blood. Exam Data for Last 24 hours Vital signs and Labs for Last 24 Hours: Temp Pulse Resp BP Pulse Ox O2 Del Method O2 Flow Rate 97.3 F L 75 16 154/74 H 97 Room Air 5 12/17/23 08:00 12/17/23 04:00 12/17/23 04:00 12/17/23 08:00 12/17/23 08:00 12/17/23 08:00 12/16/23 06:58 Laboratory Results - last 24 hr 12/15/23 12:10: Transferrin 286 12/16/23 11:43: POC Glucose 144 H 12/16/23 16:16: POC Glucose 117 H 12/16/23 17:57: Hgb 9.5 L, Hct 29.4 L 12/16/23 20:35: POC Glucose 99 12/17/23 05:26: POC Glucose 89 12/17/23 06:12: WBC 9.2, RBC 3.27 L, Hgb 9.2 L, Hct 28.3 L, MCV 86.4, MCH 28.1, MCHC 32.5, RDW 15.6, Plt Count 314, MPV 9.5, Neut % (Auto) 75.4, Lymph % (Auto) 14.8, [place] % (Auto) 6.0, Eos % (Auto) 3.0, Baso % (Auto) 0.8, Neut # (Auto) 7.0, Lymph # (Auto) 1.4, [place] # (Auto) 0.6, Eos # (Auto) 0.3, Baso # (Auto) 0.1, Sodium 138, Potassium 4.2, Chloride 110 H, Carbon Dioxide 22, Anion Gap 10.2, BUN 21 H D, Creatinine 1.20 H, Estimated Creat Clear 57, Estimated GFR 45 L, Est GFR ( Amer) 54 L D, Glucose 81, Calcium 8.8, Magnesium 2.1, Total Bilirubin 0.5, AST 26, ALT 17, Alkaline Phosphatase 82, Total Protein 5.9 L, Albumin 3.3 L, Globulin 2.6, Albumin/Globulin Ratio 1.3 I & O for Last 24 hours: Intake & Output 12/14/23 12/15/23 12/16/23 12/17/23 11:59 11:59 11:59 11:59 Intake Total 1310 / 1310 1120 / 1120 Output Total 0 / 0 0 / 0 Balance 1310 / 1310 1120 / 1120 Weight 176 lb 1.6 oz 175 lb 14.4 oz Constitutional Constitutional: no acute distress *Routine Respiratory Exam Respiratory: Absent respiratory distress *Routine Cardiovascular Exam Cardiovascular: Absent tachycardia Progress Note: A&P Assessment and plan (1) Anemia: Status: Acute Assessment and plan: Hemoglobin essentially stable at 9.2 this a.m. She has received 2 units packed red blood cells and has had an excellent response. Repeat hemoglobin/hematocrit at 2 PM (2) GI bleed: Status: Acute Assessment and plan: No definitive source noted per esophagogastroduodenoscopy yesterday. Small bowel (AVM, etc.) or colonic source (AVM, diverticular bleed, hemorrhoid, etc.) likely. Although she may ultimately require more extensive evaluation to include UGI/SBFT, capsule endoscopy, angiography, etc., the current plan is to proceed with colonoscopy in the very near future. If the patient's hemoglobin this afternoon is not stable she will receive a bowel prep with plans for colonoscopy tomorrow morning. Otherwise, colonoscopy early next week as an outpatient will be planned.
[2023-12-17 11:20] LABS: POC Glucose,Bedside 99 (70-110)
--- NOTE | 2023-12-17 12:26 | P.DS_ITS ---
General Admission date:: 12/15/23 Discharge date: 12/17/23 HPI HPI HPI: This is a 68-year-old female seen in consultation after being admitted for gastrointestinal hemorrhage. She is status post recent coronary stent placement. Over the past few days she has noticed a large volume of what she describes as pure blood per rectum. On further questioning she states that it is mixed bright red blood and some dark blood . Please see HPI forwarded from admission H&P below. Forwarded from admission H&P: Ms. Celaya is a 68-year-old female with history of type 2 diabetes, hypertension, hyperlipidemia, hypothyroidism. She was recently admitted earlier this month for difficulty breathing and chest pain. Found to have NSTEMI. Taken for heart cath on 11/29 with severe LAD disease received multiple stents and was discharged home in stable condition with mild AMY showing improvement. Has been following with cardiology and has been noted to have progressing anemia since her left heart cath and initiation of dual antiplatelet therapy. Was seen earlier today in cardiology clinic where her hemoglobin was noted to drop from 8.6 yesterday to 7.6 today. Patient reports that she has had intermittent black and red stools for the past few weeks. Has felt more weak and fatigued. Denies any nausea, chest pain, shortness of breath, syncope. Does have some intermittent heartburn. Has been taking Protonix for about a week with no significant improvement. Stable on room air. Due to lab abnormality today, cardiology requested admission for further management. On arrival to the floor, patient is pale but appears stable and at baseline level of mentation. Denies any fevers. On room air. Surgery consulted to evaluate patient with plan for EGD tomorrow. Has had a colonoscopy before with no abnormalities. Denies any history of EGD or gastric ulcer disease that she knows of. Does not drink and is a former smoker but has not smoked in many years Hospital Course Hospital Course Hospital Course: 68-year-old female with history of type 2 diabetes, hypertension, hyperlipidemia, hypothyroidism presenting to cardiology clinic for follow-up today. Found to have worsening anemia. Concern for GI bleed. Reports melenic stools. Discussed case with cardiology, request admission for transfusion and surgery eval for possible scope. I agreed to admit for further management. Hemoglobin 7.6 today. Down from 8.6 yesterday. Typed and crossed, awaiting transfusion at this time. Necessitating inpatient management. Responded well to transfusion. Taken for EGD 12/15. No active signs of bleeding. Had mild gastritis. Hemoglobin remained stable with serial H&H. Will plan for close follow-up with colonoscopy in the next 4 to 5 days. Stable to discharge home. Problems addressed as follows: Acute blood loss anemia Iron deficiency Acute GI bleed -Admitted for anemia. Hemoglobin 7.6 on admission. Responded well with improvement to 9.5. Had minimal blood tinge on her stool but no black stools or concern for melena or upper GI bleed during remainder of admission. Hemoglobin remained stable on serial H&H's. Hemoglobin 9.0 on afternoon of discharge. Taken for EGD on 12/15. No overt bleeding or ulcer identified. Had mild gastritis. Surgery assisted with care during admission. Will continue pantoprazole 40 mg twice daily. Okay to resume aspirin and Plavix due to necessity given her recent cardiac stenting. Close follow-up the beginning of the week with surgery for outpatient colonoscopy to further evaluate for other sources of bleeding. Patient remained hemodynamically stable and comfortable with this plan. Heart failure with preserved ejection fraction CAD -Recent admission earlier this month for CAD and acute heart failure with preserved ejection fraction. Status post cath 11/30/2023. Currently on aspirin 81 mg daily and Plavix 75 mg daily, continue during admission. Continue goal- directed therapy with Lipitor 40 mg daily, irbesartan 37.5 mg daily, Jardiance 10 mg daily, carvedilol 3.125 mg twice daily, and Aldactone 12.5 mg daily CKD 3:Kidney function stable during admission. BUN 21, creatinine 1.2 on day of discharge. Type 2 diabetes: A1c 7.3 earlier this month. Decreased insulin during admission due to p.o. restrictions. Okay to resume regular regimen at discharge along with Jardiance 10 mg daily for diabetes and heart disease above. Depression, chronic and stable, continue home citalopram 40 mg daily Restless leg: Home gabapentin 300 mg nightly Total time spent on discharge 35 minutes in counseling, documentation, chart review, and direct care with patient. Exam Data for Last 24 hours Vital signs and Labs for Last 24 Hours: Temp Pulse Resp BP Pulse Ox O2 Del Method O2 Flow Rate 97.3 F L 75 16 154/74 H 97 Room Air 5 12/17/23 08:00 12/17/23 04:00 12/17/23 04:00 12/17/23 08:00 12/17/23 08:00 12/17/23 11:00 12/16/23 06:58 Laboratory Results - last 24 hr 12/15/23 12:10: Transferrin 286 12/16/23 16:16: POC Glucose 117 H 12/16/23 17:57: Hgb 9.5 L, Hct 29.4 L 12/16/23 20:35: POC Glucose 99 12/17/23 05:26: POC Glucose 89 12/17/23 06:12: WBC 9.2, RBC 3.27 L, Hgb 9.2 L, Hct 28.3 L, MCV 86.4, MCH 28.1, MCHC 32.5, RDW 15.6, Plt Count 314, MPV 9.5, Neut % (Auto) 75.4, Lymph % (Auto) 14.8, [place] % (Auto) 6.0, Eos % (Auto) 3.0, Baso % (Auto) 0.8, Neut # (Auto) 7.0, Lymph # (Auto) 1.4, [place] # (Auto) 0.6, Eos # (Auto) 0.3, Baso # (Auto) 0.1, Sodium 138, Potassium 4.2, Chloride 110 H, Carbon Dioxide 22, Anion Gap 10.2, BUN 21 H D, Creatinine 1.20 H, Estimated Creat Clear 57, Estimated GFR 45 L, Est GFR ( Amer) 54 L D, Glucose 81, Calcium 8.8, Magnesium 2.1, Total Bilirubin 0.5, AST 26, ALT 17, Alkaline Phosphatase 82, Total Protein 5.9 L, Al bumin 3.3 L, Globulin 2.6, Albumin/Globulin Ratio 1.3 12/17/23 11:11: POC Glucose 99 I & O for Last 24 hours: Intake & Output 12/14/23 12/15/23 12/16/23 12/17/23 23:59 23:59 23:59 23:59 Intake Total 520 / 520 1669 / 1909 740 / 740 Output Total 0 / 0 0 / 0 0 / 0 Balance 520 / 520 1669 740 / 740 Weight 75.835 kg 79.878 kg 79.787 kg Constitutional Constitutional: no acute distress, obese and cooperative *Routine HEENT Exam Head: Present normocephalic Eye: Present EOMI and PERRL ENT: Present mucous membranes moist *Routine Neck Exam Neck: Present supple; Absent lymphadenopathy *Routine Respiratory Exam Respiratory: Present CTA bilaterally; Absent rhonchi, wheezes or crackles *Routine Cardiovascular Exam Cardiovascular: Present RRR *Routine Abdominal Exam Abdominal: Present soft and normoactive bowel sounds; Absent tenderness *Routine Rectal Exam Patient deferred: visual exam *Routine Exam Patient deferred: external exam *Routine Extremities Exam Extremities: Absent cyanosis, clubbing or edema *Routine Skin Exam Skin: Present warm; Absent rash *Routine Neurological Exam Neurological: Present alert, oriented X3 and moving all extremities; Absent altered mental status Results Data Completed and Pending Labs on day of discharge: Labs from last 24 hours 12/17/23 12/17/23 12/17/23 11:11 06:12 05:26 WBC 9.2 RBC 3.27 L Hgb 9.2 L Hct 28.3 L MCV 86.4 MCH 28.1 MCHC 32.5 RDW 15.6 Plt Count 314 MPV 9.5 Neut % (Auto) 75.4 Lymph % (Auto) 14.8 [place] % (Auto) 6.0 Eos % (Auto) 3.0 Baso % (Auto) 0.8 Neut # (Auto) 7.0 Lymph # (Auto) 1.4 [place] # (Auto) 0.6 Eos # (Auto) 0.3 Baso # (Auto) 0.1 Sodium 138 Potassium 4.2 Chloride 110 H Carbon Dioxide 22 Anion Gap 10.2 BUN 21 H D Creatinine 1.20 H Estimated Creat Clear 57 Estimated GFR 45 L Est GFR ( Amer) 54 L D Glucose 81 POC Glucose 99 89 Calcium 8.8 Magnesium 2.1 Transferrin Total Bilirubin 0.5 AST 26 ALT 17 Alkaline Phosphatase 82 Total Protein 5.9 L Albumin 3.3 L Globulin 2.6 Albumin/Globulin Ratio 1.3 12/16/23 12/16/23 12/16/23 20:35 17:57 16:16 WBC RBC Hgb 9.5 L Hct 29.4 L MCV MCH MCHC RDW Plt Count MPV Neut % (Auto) Lymph % (Auto) [place] % (Auto) Eos % (Auto) Baso % (Auto) Neut # (Auto) Lymph # (Auto) [place] # (Auto) Eos # (Auto) Baso # (Auto) Sodium Potassium Chloride Carbon Dioxide Anion Gap BUN Creatinine Estimated Creat Clear Estimated GFR Est GFR ( Amer) Glucose POC Glucose 99 117 H Calcium Magnesium Transferrin Total Bilirubin AST ALT Alkaline Phosphatase Total Protein Albumin Globulin Albumin/Globulin Ratio 12/15/23 12:10 WBC RBC Hgb Hct MCV MCH MCHC RDW Plt Count MPV Neut % (Auto) Lymph % (Auto) [place] % (Auto) Eos % (Auto) Baso % (Auto) Neut # (Auto) Lymph # (Auto) [place] # (Auto) Eos # (Auto) Baso # (Auto) Sodium Potassium Chloride Carbon Dioxide Anion Gap BUN Creatinine Estimated Creat Clear Estimated GFR Est GFR ( Amer) Glucose POC Glucose Calcium Magnesium Transferrin 286 Total Bilirubin AST ALT Alkaline Phosphatase Total Protein Albumin Globulin Albumin/Globulin Ratio DS: Diagnosis Discharge Diagnosis (1) Anemia: Status: Acute Code(s): D64.9 - Anemia, unspecified Qualifiers: Anemia type: other cause Other causes of anemia: acute posthemorrhagic Qualified Code(s): D62 - Acute posthemorrhagic anemia (2) GI bleed: Status: Acute Code(s): K92.2 - Gastrointestinal hemorrhage, unspecified Qualifiers: GI bleed type/associated pathology: unspecified gastrointestinal hemorrhage type Qualified Code(s): K92.2 - Gastrointestinal hemorrhage, unspecified Meds Home Medications and Allergies Home Medications Medication Instructions Recorded Confirmed Type cholecalciferol (vitamin D3) 1,250 1,250 mcg PO WEEKLY #5 caps 07/23/21 12/15/23 Rx mcg (50,000 unit) capsule cholecalciferol (vitamin D3) 25 25 mcg PO DAILY #90 caps 07/23/21 12/15/23 Rx mcg (1,000 unit) capsule pen needle, diabetic 31 gauge x #50 ea 07/23/21 12/15/23 Rx 5/16 (Comfort EZ Pen [place]) gabapentin 300 mg capsule 300 mg PO HS 04/10/22 12/15/23 History albuterol sulfate 90 mcg/actuation 2 inh inhalation Q4HP PRN Wheezing 11/30/23 12/15/23 History aerosol inhaler citalopram 40 mg tablet 40 mg PO DAILY 11/30/23 12/15/23 History nabumetone 750 mg tablet 750 mg PO BID 11/30/23 12/15/23 History insulin glargine 100 unit/mL (3 25 unit (0.25 mL) SQ HS 30 days #0 12/02/23 12/15/23 Rx mL) subcutaneous pen (Basaglar mL KwikPen U-100 Insulin) aspirin 81 mg tablet,delayed 81 mg PO DAILY #90 tabs 12/08/23 12/15/23 Rx release (Adult Low Dose Aspirin) atorvastatin 40 mg tablet 40 mg PO HS #90 tabs 12/08/23 12/15/23 Rx carvedilol 3.125 mg tablet 3.125 mg PO DAILY #90 tabs 12/08/23 12/15/23 Rx clopidogrel 75 mg tablet 75 mg PO DAILY #90 tabs 12/08/23 12/15/23 Rx empagliflozin 10 mg tablet 10 mg PO DAILY #90 tabs 12/08/23 12/15/23 Rx (Jardiance) spironolactone 25 mg tablet 12.5 mg (1/2 x 25 mg) PO DAILY #90 12/08/23 12/15/23 Rx tabs pantoprazole 40 mg granules 40 mg PO BID #180 ea 12/09/23 12/15/23 Rx delayed-release for susp in packet (Protonix) irbesartan 75 mg tablet 37.5 mg (1/2 x 75 mg) PO DAILY 90 12/14/23 12/15/23 Rx days #45 tabs sod picosulf 10 mg-magnes 3.5 175 ml PO DAILY 2 doses #350 mL 12/17/23 Rx gram-citric 12 gram/175 mL oral solution (Clenpiq) New Prescriptions to Start Prescriptions: Allergies Allergy/AdvReac Type Severity Reaction Status Date / Time metformin AdvReac Vomiting/GI Verified 12/15/23 11:04 upset Discharge Plan Disposition Patient Disposition: Home, Self-Care Condition: Fair Follow up Plan Follow up with: Kel Hoskins MD [Staff Physician] - 12/28/23 11:15 am Cassi Neal APRN [Primary Care Provider] - 12/22/23 9:30 am Ángel Tirado MD [Staff Physician] - Enter time for follow up (colonscopy scheduled for 12/20. someone will call wednesday with time) Prescriptions/Medication Reconciliation: Continued gabapentin 300 mg capsule 300 mg PO HS aspirin [Adult Low Dose Aspirin] 81 mg tablet,delayed release (DR/EC) 81 mg PO DAILY Qty: 90 3RF atorvastatin 40 mg tablet 40 mg PO HS Qty: 90 3RF clopidogrel 75 mg tablet 75 mg PO DAILY Qty: 90 3RF Jardiance 10 mg tablet 10 mg PO DAILY Qty: 90 3RF spironolactone 25 mg tablet 12.5 mg PO DAILY Qty: 90 3RF carvedilol 3.125 mg tablet 3.125 mg PO DAILY Qty: 90 3RF cholecalciferol (vitamin D3) 25 mcg (1,000 unit) capsule 25 mcg PO DAILY Qty: 90 3RF cholecalciferol (vitamin D3) 1,250 mcg (50,000 unit) capsule 1,250 mcg PO WEEKLY Qty: 5 3RF (DME) pen needle, diabetic [Comfort EZ Pen [place]] 31 gauge x 5/16 needle See Rx Instructions .Route Qty: 50 2RF Rx Instructions: As directed pantoprazole [Protonix] [address] for susp in packet 40 mg PO BID Qty: 180 3RF irbesartan 75 mg tablet 37.5 mg PO DAILY 90 Days Qty: 45 1RF Clenpiq 10 mg-3.5 gram- 12 gram/175 mL solution 175 ml PO DAILY Qty: 350 0RF Rx Instructions: take first dose at 5-9PM evening before colonoscopy; 2nd dose the next day approximately 5 hrs before colonoscopy nabumetone 750 mg tablet 750 mg PO BID citalopram 40 mg tablet 40 mg PO DAILY albuterol sulfate 90 mcg/actuation HFA aerosol inhaler 2 inh INHALATION Q4HP PRN (Reason: Wheezing) Patient Comments: INHALE 2 PUFFS BY MOUTH EVERY 4 HOURS FOR WHEEZING insulin glargine [Basaglar KwikPen U-100 Insulin] 100 unit/mL (3 mL) insulin pen 25 unit SQ HS 30 Days Qty: 0 0RF Problem Reconciliation Problems Reviewed?: Yes Patient Discharge Instructions ACTIVITY: Continue current activity DIET: continue same diet Patient Instructions: DI for Gastrointestinal Bleeding Providers Primary Care Provider: Cassi Neal Admit Provider: Isaac Leal Attending Provider: Isaac Leal
[2023-12-17 14:17] LABS: Hematocrit 28.1 % (37.0-47.0)
--- NOTE | 2023-12-20 15:42 | CARE MANAGER ---
Contacted patient related to hospital discharge. She states she is doing well and is aware of follow up appointments. Denies questions or concerns. JACKIE Mcgregor
== END 2023-12-17 15:33 | disposition home or self-care (01) ==
LOC: 2ND 15:31
PROVIDERS: Internal Medicine; Surgery; Admitting Provider Internal Medicine Adolescent Medicine; PCP Nurse Practitioner; Visit Provider Internal Medicine Adolescent Medicine
PROC: 0DJ08ZZ Inspection of Upper Intestinal Tract, Via Natural or Artificial Opening Endoscopic (ICD-10-PCS; CPT 43235; principal; 2023-12-16 07:00)
DX: K92.2 Gastrointestinal hemorrhage, unspecified (principal); I50.20 Unspecified systolic (congestive) heart failure; I25.10 Atherosclerotic heart disease of native coronary artery without angina pectoris; E11.65 Type 2 diabetes mellitus with hyperglycemia; F33.1 Major depressive disorder, recurrent, moderate; D62 Acute posthemorrhagic anemia; Z95.5 Presence of coronary angioplasty implant and graft; E61.1 Iron deficiency; E11.22 Type 2 diabetes mellitus with diabetic chronic kidney disease; N18.30 Chronic kidney disease, stage 3 unspecified; Z79.4 Long term (current) use of insulin; M19.90 Unspecified osteoarthritis, unspecified site; G25.81 Restless legs syndrome
CPT/HCPCS: 43239; 36415; 80053; 82728; 82962; 83540; 83550; 83735; 84466; 85014; 85018; 85025; 86850; G0378; P9016

== ENCOUNTER 2023-12-21 11:50 | Day surgery (SDC) | payer MEDICARE, SELFPAY ==
[2023-12-21 12:05] VITALS: BMI 29.5
[2023-12-21 12:07] VITALS: BP 141/68; PULSE 86; RESP 18; TEMP 36.3; O2SAT 96
[2023-12-21 12:17] LABS: Hematocrit 31.1 % (37.0-47.0); Hemoglobin 10.3 g/dL (12.2-16.2)
--- NOTE | 2023-12-21 12:23 | HMH.SCOPE ---
Procedure: Date: 12/21/23 Patient Date of :: 1955 Procedure Performed:: Colonoscopy with polypectomy Indications:: Gastrointestinal hemorrhage (recent esophagogastroduodenoscopy revealed no definitive source) Performing Provider:: Ángel Tirado MD Referring Provider:: . Sedation:: Monitored anesthesia care Procedure:: After informed consent was obtained the patient was taken to the endoscopy suite. Sedation ensued after the patient was transferred to the left lateral decubitus position. Pulse, blood pressure, and oxygen saturation were monitored throughout the procedure. Digital rectal exam revealed no significant abnormality. The colonoscope was placed in position. The entire colon was evaluated. The colonoscope was carefully removed and the patient was transferred to recovery in stable condition. Please see findings and specimens below for detail. Findings:: Bowel preparation fair Mild hemorrhoidal cushions and hemorrhoidal tag without evidence of active/recent hemorrhage Tiny focal inflammatory response in cecum versus developing/small AVMs (no evidence of active/recent hemorrhage) Fairly severe spasticity/lack of relaxation (particularly sigmoid) Polyps (see specimens) Specimens:: Sessile cecal polyp (cold snare) Sessile right colon polyp (cold snare) Recommendations:: Timing of repeat colonoscopy is pending pathology will likely be around 2-3 years. Further evaluation with regard to gastrointestinal hemorrhage/anemia will be ongoing (UGI/SBFT, capsule endoscopy, etc.) Complications:: No immediate Estimated blood obtained (mL): 1 Comment:: Repeat hemoglobin today up from 9.0 to 10.3 Colonoscopy Component Colonoscopy Component Was a colonoscopy performed during today's procedure?: Yes Recommended follow up colonoscopy of at least 10 years?: No If no, follow up colonoscopy recommended in ___ years?: (See above) Reason for not recommending >/= 10 yr follow-up interval?: (See above)
[2023-12-21 12:26] VITALS: O2SAT 96
[2023-12-21 13:05] VITALS: BP 100/53; PULSE 76; RESP 16; TEMP 36.4; O2SAT 95
[2023-12-21 13:15] VITALS: BP 103/53; PULSE 74; RESP 16; O2SAT 98
[2023-12-21 13:25] VITALS: BP 106/59; PULSE 71; RESP 18; O2SAT 95
[2023-12-21 13:35] VITALS: BP 112/54; PULSE 74; RESP 18; O2SAT 97
[2023-12-22 07:03] LABS: POC Glucose,Bedside 155 (70-110)
== END 2023-12-21 13:38 | disposition home or self-care (01) ==
PROVIDERS: PCP Nurse Practitioner; Visit Provider Surgery
PROC: 0DJD8ZZ Inspection of Lower Intestinal Tract, Via Natural or Artificial Opening Endoscopic (ICD-10-PCS; CPT 45385; principal; 2023-12-21 13:00)
DX: K92.2 Gastrointestinal hemorrhage, unspecified (principal); D50.0 Iron deficiency anemia secondary to blood loss (chronic); K64.9 Unspecified hemorrhoids; D12.2 Benign neoplasm of ascending colon; D12.0 Benign neoplasm of cecum; E11.8 Type 2 diabetes mellitus with unspecified complications
CPT/HCPCS: 45385; 82962; 85014; 85018; 88305; J3010

== ENCOUNTER 2023-12-31 07:40 | Outpatient (CLI) | payer MEDICARE, SELFPAY ==
--- NOTE | 2023-12-31 07:50 | FL_ITS ---
FINAL REPORT CLINICAL HISTORY: anemia 2657.29 dap 2.09 fluoro time FINDINGS: UGI Clinical history: Anemia Findings: Patient swallowed barium without difficulty. The esophagus is normal. There is minimal gastroesophageal reflux. Gastric folds appear unremarkable. Duodenal C-loop is normal in configuration. Impression: Minimal gastroesophageal reflux. Otherwise, unremarkable upper GI. SMALL-BOWEL FOLLOW-THROUGH CLINICAL HISTORY: Anemia. FINDINGS: Preliminary salvage determiner film the abdomen demonstrates a large amount of stool throughout the colon. There is no evidence of bowel obstruction. Contrast reaches the colon in 30 minutes. Spot film imaging of the terminal ileum is unremarkable. IMPRESSION: Large amount of colonic stool. Otherwise, unremarkable small bowel follow-through. FLUOROSCOPY TIME: 2 minutes 9 seconds FLUORO DOSE: mGy TOTAL DAP: 2657.29 uGym2 Films reviewed and interpreted by Dr. Echevarria Transcribed by NIYA Saucedo. Reviewed, Interpreted and Dictated by Mazin Echevarria III, MD Transcribed by JAMES Saucedo Authenticated and [facility]
[2023-12-31] MEDS: BARIUM SULFATE(E-Z-AC);750ML BOTTLE 750 ML PO (09:13)
[2023-12-31] MEDS: DIATRIZOATE MEGLUMINE(GASTROGRAFIN) 66%-10% 120ML 20 ML PO (09:13)
[2023-12-31] MEDS: E-Z-GASII EFFERVESCENT GRANULES;1PK 1 EACH PO (09:13)
[2023-12-31] MEDS: BARIUM SULFATE (E-Z-HD 340GM);135ML BOTTLE 135 ML PO (09:13)
== END 2023-12-31 23:59 | disposition home or self-care (01) ==
LOC: RAD 07:40
PROVIDERS: PCP Nurse Practitioner; Visit Provider Surgery
DX: K92.2 Gastrointestinal hemorrhage, unspecified (principal)
CPT/HCPCS: 74246; 74248; Q9963

== ENCOUNTER 2024-01-04 11:11 | Outpatient (CLI) | payer MEDICARE, SELFPAY ==
[2024-01-04 11:58] LABS: Basophils # 0.1 K/mm3 (0-0.2); Basophils % 0.8 % (0.1-2.0); Eosinophils # 0.1 K/mm3 (0.0-0.4); Eosinophils % 0.6 % (0.1-12.0); Lymphocytes # 1.1 K/mm3 (0.7-4.5); Mean Corpuscular HGB Conc 33.1 g/dL (31.8-35.4); Mean Corpuscular Volume 81.3 fl (81-99); Mean Platelet Volume 9.5 fl (7.4-10.4); Monocytes # 0.7 K/mm3 (0.1-1.0); Monocytes % 5.8 % (1.7-9.3); Neutrophils % 83.8 % (37.0-80.0); Platelet Count 351 K/mm3 (142-424); Red Blood Count 2.52 M/mm3 (4.20-5.40); Red Cell Distribution Width 15.1 % (11.5-17.5); White Blood Count 11.9 K/mm3 (4.8-10.8)
[2024-01-04 12:10] LABS: Chloride 104 mmol/L (98-107); Potassium 4.5 mmoL/L (3.5-5.1); Sodium 134 mmol/L (136-145)
[2024-01-04 12:13] LABS: Alanine Aminotransferase 20 U/L (12-78); Alkaline Phosphatase 95 U/L (38-126); Anion Gap 12.5 mEq/L (5-15); Aspartate Amino Transferase 20 U/L (14-36); Bilirubin,Indirect 0.6 mg/dL (0.0-0.9); Bilirubin,Total 0.6 mg/dl (0.2-1.3); Bilirubin,Unconjugated 0.5 mg/dL (0.0-1.1); Blood Urea Nitrogen 23 mg/dl (7-17); Calcium 9.6 mg/dl (8.4-10.2); Carbon Dioxide 22 mmol/L (22.0-30.0); Estimated Glomerular Filt Rate 41 ml/min (>60); GFR (African American) 49 ML/MIN (>60); Glucose 200 mg/dl (74-100); Total Protein,Serum 6.5 g/dl (6.3-8.2)
[2024-01-04 12:29] LABS: Hematocrit 20.5 % (37.0-47.0); Hemoglobin 6.8 g/dL (12.2-16.2)
== END 2024-01-04 23:59 | disposition home or self-care (01) ==
LOC: LAB 11:14
PROVIDERS: PCP Nurse Practitioner; Visit Provider Nurse Practitioner
DX: I25.10 Atherosclerotic heart disease of native coronary artery without angina pectoris (principal); I50.20 Unspecified systolic (congestive) heart failure; I95.9 Hypotension, unspecified; D62 Acute posthemorrhagic anemia; Z87.891 Personal history of nicotine dependence
CPT/HCPCS: 36415; 80048; 80076; 83735; 85025; 93225; 93227

== ENCOUNTER 2024-01-05 07:57 | Outpatient (CLI) | payer MEDICARE, SELFPAY ==
[2024-01-05] VITALS (20 sets, daily range): BP systolic 112–159; BP diastolic 40–81; PULSE 73–86; RESP 18; TEMP 36.6–37.2; O2SAT 98–100; BMI 28.7
[2024-01-05] MEDS: 0.9 % SODIUM CHLORIDE 250 ML 25 ML IV (09:30)
== END 2024-01-05 14:28 | disposition home or self-care (01) ==
LOC: INF 07:58
PROVIDERS: PCP Nurse Practitioner; Visit Provider Nurse Practitioner
DX: D64.9 Anemia, unspecified (principal)
CPT/HCPCS: 36430; 86850; P9016

== ENCOUNTER 2024-01-05 11:06 | Outpatient (CLI) | payer MEDICARE, SELFPAY ==
[2024-01-05 15:06] LABS: Hematocrit 25.5 % (37.0-47.0); Hemoglobin 8.7 g/dL (12.2-16.2)
== END 2024-01-05 23:59 | disposition home or self-care (01) ==
LOC: LAB.DROPOF 01-10 11:07
PROVIDERS: PCP Internal Medicine; Visit Provider Surgery
DX: K92.2 Gastrointestinal hemorrhage, unspecified (principal); D62 Acute posthemorrhagic anemia; D12.6 Benign neoplasm of colon, unspecified
CPT/HCPCS: 36415; 36430; 85014; 85018; 86850; P9016

== ENCOUNTER 2024-01-06 11:43 | Outpatient (CLI) | payer MEDICARE, SELFPAY | END 2024-01-06 23:59 | disposition home or self-care (01) | LOC: RT 11:46 | PROVIDERS: PCP Internal Medicine; Visit Provider Internal Medicine | DX: R06.00 Dyspnea, unspecified (principal); R53.1 Weakness | CPT/HCPCS: 93270 ==

== ENCOUNTER 2024-01-11 12:53 | Outpatient (CLI) | payer MEDICARE, SELFPAY ==
[2024-01-11 13:22] LABS: Hematocrit 29.9 % (37.0-47.0); Hemoglobin 9.8 g/dL (12.2-16.2)
== END 2024-01-11 23:59 | disposition home or self-care (01) ==
LOC: LAB 12:54
PROVIDERS: PCP Nurse Practitioner; Visit Provider Surgery
DX: K92.2 Gastrointestinal hemorrhage, unspecified (principal)
CPT/HCPCS: 85014; 85018

== ENCOUNTER 2024-01-18 11:25 | Outpatient (CLI) | payer MEDICARE, SELFPAY ==
[2024-01-18 11:55] LABS: Basophils # 0.1 K/mm3 (0-0.2); Basophils % 0.9 % (0.1-2.0); Eosinophils # 0.2 K/mm3 (0.0-0.4); Eosinophils % 1.8 % (0.1-12.0); Hematocrit 32.5 % (37.0-47.0); Hemoglobin 10.4 g/dL (12.2-16.2); Lymphocytes % 10.7 % (10-50); Mean Corpuscular Hemoglobin 26.4 pg (27.0-31.2); Mean Corpuscular Volume 82.5 fl (81-99); Monocytes # 0.6 K/mm3 (0.1-1.0); Monocytes % 5.8 % (1.7-9.3); Neutrophils # 7.7 K/mm3 (1.8-7.8); Neutrophils % 80.7 % (37.0-80.0); Platelet Count 283 K/mm3 (142-424); Red Blood Count 3.94 M/mm3 (4.20-5.40); Red Cell Distribution Width 15.8 % (11.5-17.5); White Blood Count 9.5 K/mm3 (4.8-10.8)
== END 2024-01-18 23:59 | disposition home or self-care (01) ==
LOC: LAB 11:26
PROVIDERS: PCP Nurse Practitioner; Visit Provider Nurse Practitioner
DX: K92.2 Gastrointestinal hemorrhage, unspecified (principal); D62 Acute posthemorrhagic anemia
CPT/HCPCS: 36415; 85025

== ENCOUNTER 2024-02-11 10:59 | Outpatient (CLI) | payer MEDICARE, SELFPAY ==
[2024-02-11 11:25] LABS: Hematocrit 27.6 % (37.0-47.0); Hemoglobin 8.4 g/dL (12.2-16.2)
[2024-02-11 11:41] LABS: Blood Urea Nitrogen 18 mg/dl (7-17); Estimated Glomerular Filt Rate 55 ml/min (>60); GFR (African American) 67 ML/MIN (>60)
== END 2024-02-11 23:59 | disposition home or self-care (01) ==
LOC: LAB 11:00
PROVIDERS: PCP Nurse Practitioner; Visit Provider Surgery
DX: K92.2 Gastrointestinal hemorrhage, unspecified (principal)
CPT/HCPCS: 36415; 82565; 84520; 85014; 85018

== ENCOUNTER 2024-02-15 17:04 | Observation (INO) | payer MEDICARE, SELFPAY ==
[2024-02-14 09:11] VITALS: BMI 28.1
[2024-02-15] VITALS (31 sets, daily range): BP systolic 102–149; BP diastolic 5–72; PULSE 58–91; RESP 14–76; TEMP 36.3–37.1; O2SAT 60–99
[2024-02-15] MEDS: LACTATED RINGERS 1000ML 1,000 ML 25 ML IV (12:04)
--- NOTE | 2024-02-15 12:17 | P.PCN_ITS ---
Procedure: Date: 02/15/24 Patient Date of :: 1955 Procedure Performed:: Colonoscopy with argon plasma coagulation Indications:: Anemia/gastrointestinal hemorrhage Note: No definitive source noted per recent EGD/colonoscopy, UGI/SBFT, or capsule endoscopy. The patient's bleeding is seemingly intermittent. A focal inflammatory response in the cecum versus developing/small AVM was noted on recent colonoscopy. No evidence of active/recent hemorrhage noted; however, no additional source has been found. Performing Provider:: Ángel Tirado MD Referring Provider:: . Sedation:: Monitored anesthesia care Procedure:: After informed consent was obtained the patient was taken to the endoscopy suite. Sedation ensued after the patient was transferred to the left lateral decubitus position. Pulse, blood pressure, and oxygen saturation were monitored throughout the procedure. Digital rectal exam revealed no significant abnormality. The colonoscope was placed in position. The entire colon was ev aluated. The colonoscope was carefully removed and the patient was transferred to recovery in stable condition. Please see findings and specimens below for detail. Findings:: Bowel preparation relatively fair Moderate spasticity/lack of relaxation Multiple tiny focal inflammatory changes in cecum/right colon versus developing small AVMs (a few areas showing evidence of minimal sanguinous ooze) Argon plasma coagulation to above areas completed Specimens:: None Recommendations:: Follow-up serial hemoglobin/hematocrit Complications:: No immediate Estimated blood obtained (mL): 5 Colonoscopy Component Colonoscopy Component Was a colonoscopy performed during today's procedure?: Yes Recommended follow up colonoscopy of at least 10 years?: No If no, follow up colonoscopy recommended in ___ years?: (See above) Reason for not recommending >/= 10 yr follow-up interval?: (See above)
--- NOTE | 2024-02-15 12:21 | EXP.ANES.CKL ---
[facility] Disclaimer: The information contained in this section may have been updated after the patient was seen, as this information can be updated by other users. Medical History Migraines History of myocardial infarction Hypertension HFrEF (heart failure with reduced ejection fraction) History of fracture of right ankle Fracture of phalanx of right hand, closed Diabetes Asthma Hyperlipidemia (~03/08/18) Osteoarthritis Restless leg syndrome Depression Surgical History History of colonoscopy History of esophagogastroduodenoscopy (EGD) S/P cardiac cath History of appendectomy History of ankle surgery History of lumpectomy of right breast History of knee surgery H/O wrist surgery H/O shoulder surgery Family History Other Family history of cancer Social History Smoking Status: Former smoker alcohol intake: never substance use type: denies use current occupational status: employed Travel in the last 8 weeks: None [facility] Anesthesia Checklist Patient Identification Patient Identification: Arm Band and Verbal (Name & ) Structural Data Admitted From: Home Planned Operative Procedure/s: Colonoscopy Consent for Planned Operative Procedure(s) Verified: Yes Verified Documents: Surgical Consent and History and Physical NPO Status Verified Time NPO: 00:00 Additional verifications Anesthesia Reactions: No Airway Assessment Mallampati Score:: Class II C-Spine Mobility Assessed: Yes TMJ Mobility Assessed: Yes Dentition: Good Dentition Neurological Assessment Level of Consciousness: Awake Hx Seizures: No Numbness or tingling in extremities: No Anesthesia Plan Anesthesia Risk discussed: Yes Anesthesia Plan: Verified ASA Class: III Anesthesia Type: MAC
[2024-02-15 12:28] LABS: POC Glucose,Bedside 163 (70-110)
--- NOTE | 2024-02-15 13:34 | EXP.ANES.I ---
[facility] Anesthesia Record Part I Anesthesia Record I Intake, IV Amount: 500 Hydration: Adequate Estimated blood loss (mL): 5 Urine output (mL): 0 Blood Products used (#): none Blood Pressure: 102/45 SaO2: 90 Pulse Rate: 61 Airway Patency: Patent Respiratory Rate: 16 Temperature: 97.6 F Patient is:: Drowsy and Oral/Nasal airway (9.0 oral airway) Stable to PACU at:: 13:35
[2024-02-15 13:51] LABS: POC Glucose,Bedside 141 (70-110)
[2024-02-15 14:31] LABS: Hemoglobin 6.2 g/dL (12.2-16.2)
[2024-02-15 14:33] LABS: Hematocrit 19.4 % (37.0-47.0)
--- NOTE | 2024-02-15 14:38 | SUR.PHASEII ---
Lab notified of need for type and screen
--- NOTE | 2024-02-15 16:15 | PC.NURSE ---
Pt resting in bed. No needs or concerns voiced.
--- NOTE | 2024-02-15 16:27 | SUR.PHASEII ---
1614- Dr. Tirado notified of update on the current status of patient receiving blood. Decision was made to admit patient under observation to complete blood infusion. 1630- Dr. Tirado at bedside with patient. Patient to be admitted to room 214.
--- NOTE | 2024-02-15 16:30 | PC.NURSE ---
Pt resting in bed. Pt tolerating blood well. No s/s of reaction noted. Sister at bedside.
--- NOTE | 2024-02-15 17:15 | PC.NURSE ---
Pt tolerating blood well. No s/s of reaction noted. Sister remains at bedside. Blood infusing at 150 ml/hr.
--- NOTE | 2024-02-15 17:50 | EXP.HP ---
History of Present Illness *Admission Date: 02/15/24 *Reason for visit:: Recurrent bright red blood per rectum *History of present illness: Really nice patient with history of recurrent GI bleeding secondary to AV malformations. Patient with past medical history of anemia, CAD, heart failure with preserved ejection fraction, bilateral plantar fasciitis, BPH, hypothyroidism, hyperlipidemia. Patient status post ID November 29, 2023, and received cardiac stent by Dr. Hoskins. Patient then experienced GI bleeding December 14 and required 2 units packed RBCs. Patient had another bleeding episode January 04 and required additional 2 units packed RBCs. Patient evaluated by general surgeon Dr. Tirado over summer status post EGD/colonoscopy and argon anticoagulation. Patient also received capsule endoscopy over summer. Reports recurrent bright red blood per rectum starting January 21. Patient's status post colonoscopy with argon anticoagulation done today. Patient had hemoglobin in 6.2 range after colonoscopy procedure. Patient subsequently admitted overnight for observation and 2 unit packed RBC blood transfusion. Patient eating chicken tenders, fries, and drinking a soda at time of evaluation by Dr. Rodriguez overnight. I was hungry and having eaten since Wednesday. Denies fevers, chills, sick contacts, recent travel, abdominal pain. States she feels great after colonoscopy procedure today. [facility] Disclaimer: The information contained in this section may have been updated after the patient was seen, as this information can be updated by other users. Medical History Migraines History of myocardial infarction Hypertension HFrEF (heart failure with reduced ejection fraction) History of fracture of right ankle Fracture of phalanx of right hand, closed Diabetes Asthma Hyperlipidemia (~03/08/18) Osteoarthritis Restless leg syndrome Depression Surgical History History of colonoscopy History of esophagogastroduodenoscopy (EGD) S/P cardiac cath History of appendectomy History of ankle surgery History of lumpectomy of right breast History of knee surgery H/O wrist surgery H/O shoulder surgery Family History Other Family history of cancer Social History Smoking Status: Former smoker alcohol intake: never substance use type: denies use current occupational status: employed Travel in the last 8 weeks: None Meds Home Medications and Allergies Home Medications ?Medication ?Instructions ?Recorded ?Confirmed ?Type cholecalciferol (vitamin D3) 1,250 1,250 mcg PO WEEKLY #5 caps 07/23/21 02/14/24 Rx mcg (50,000 unit) capsule cholecalciferol (vitamin D3) 25 25 mcg PO DAILY #90 caps 07/23/21 02/14/24 Rx mcg (1,000 unit) capsule pen needle, diabetic 31 gauge x #50 ea 07/23/21 02/14/24 Rx 5/16 (Comfort EZ Pen [place]) gabapentin 300 mg capsule 300 mg PO HS 04/10/22 02/14/24 History albuterol sulfate 90 mcg/actuation 2 inh inhalation Q4HP PRN Wheezing 11/30/23 02/14/24 History aerosol inhaler citalopram 40 mg tablet (Celexa) 40 mg PO DAILY 11/30/23 02/14/24 History aspirin 81 mg tablet,delayed 81 mg PO DAILY #90 tabs 12/08/23 02/14/24 Rx release (Adult Low Dose Aspirin) atorvastatin 40 mg tablet 40 mg PO HS #90 tabs 12/08/23 02/14/24 Rx insulin glargine 100 unit/mL (3 30 unit SQ HS 12/28/23 02/14/24 History mL) subcutaneous pen (Lantus Solostar U-100 Insulin) pantoprazole 40 mg tablet,delayed 40 mg PO BID #60 tabs 01/04/24 02/14/24 Rx release (Protonix) clopidogrel 75 mg tablet 75 mg PO DAILY 01/18/24 02/14/24 History donepezil 5 mg tablet 5 mg PO HS 01/18/24 02/14/24 History spironolactone 25 mg tablet 12.5 mg PO DAILY 01/18/24 02/14/24 History New Prescriptions to Start Prescriptions: Allergies Allergy/AdvReac Type Severity Reaction Status Date / Time metformin AdvReac Vomiting/GI Verified 02/15/24 12:08 upset Exam Data for Last 24 hours Vital signs and Labs for Last 24 Hours: Temp Pulse Resp BP Pulse Ox O2 Del Method O2 Flow Rate 98.4 F 77 18 133/70 95 Room Air 2 02/15/24 17:15 02/15/24 17:15 02/15/24 17:15 02/15/24 17:15 02/15/24 17:15 02/15/24 15:30 02/15/24 14:00 Laboratory Results - last 24 hr 02/15/24 12:20: POC Glucose 163 H 02/15/24 13:36: Hgb 6.2 L*, Hct 19.4 L* 02/15/24 13:42: POC Glucose 141 H 02/15/24 14:45: Blood Type A Positive, Antibody Screen Negative, Crossmatch (AHG) See Detail I & O for Last 24 hours: Intake & Output 02/12/24 02/13/24 02/14/24 02/15/24 23:59 23:59 23:59 23:59 Intake Total 500 / 500 Balance 500 / 500 Weight 72.121 kg Constitutional Constitutional: no acute distress *Routine HEENT Exam Head: Present normocephalic Eye: Present EOMI ENT: Present mucous membranes moist *Routine Neck Exam Neck: Present supple and full ROM *Routine Respiratory Exam Respiratory: Present CTA bilaterally *Routine Cardiovascular Exam Cardiovascular: Present RRR, Normal S1 and Normal S2 *Routine Abdominal Exam Abdominal: Present soft and normoactive bowel sounds *Routine Rectal Exam Rectal:: deferred *Routine Genitalia Exam Genitalia:: deferred *Routine Extremities Exam Extremities: Present full ROM and normal capillary refill *Routine Skin Exam Skin: Present intact and dry Assessment and Plan *Assessment and plan (1) Anemia: Status: Acute Qualifiers: Anemia type: other cause Other causes of anemia: acute posthemorrhagic Qualified Code(s): D62 - Acute posthemorrhagic anemia Category: Medical Code(s): D64.9 - Anemia, unspecified (2) CAD (coronary artery disease): Status: Acute Qualifiers: Coronary Disease-Associated Artery/Lesion type: [place] artery [place] vs. transplanted heart: [place] heart Associated angina: without angina Qualified Code(s): I25.10 - Atherosclerotic heart disease of [place] coronary artery without angina pectoris Category: Medical Code(s): I25.10 - Atherosclerotic heart disease of [place] coronary artery without angina pectoris (3) Diabetes: Status: Chronic Qualifiers: Diabetes mellitus type: type 2 Diabetes mellitus jail insulin use: without jail use Diabetes mellitus complication status: with hyperglycemia Qualified Code(s): E11.65 - Type 2 diabetes mellitus with hyperglycemia Category: Medical Code(s): E11.9 - Type 2 diabetes mellitus without complications (4) GI bleed: Problem Comment: No definitive etiology noted per recent esophagogastroduodenoscopy. No sign of active bleeding or recent hemorrhage noted on recent colonoscopy; however, a small focus of inflammation versus AVM was noted in the cecum. No source of bleeding noted per capsule endoscopy. Status: Acute Qualifiers: GI bleed type/associated pathology: unspecified gastrointestinal hemorrhage type Qualified Code(s): K92.2 - Gastrointestinal hemorrhage, unspecified Category: Medical Code(s): K92.2 - Gastrointestinal hemorrhage, unspecified Plan 68-year-old female past medical history of GI bleeding secondary to AV malformations with CAD, heart failure, plantar fasciitis bilaterally, hypothyroidism, diabetes, hyperlipidemia. Patient presents after colonoscopy with argon anticoagulation of AV malformations. Presents with hemoglobin above 6 with 2 units packed RBCs started in PACU. Symptomatic anemia secondary to AV malformation: ? Transfused 2 units packed RBCs. Recheck hemoglobin after transfusion and in AM. Low threshold to continue transfusions if hemoglobin drops. Diabetes: Slight scale insulin, ACH S Accu-Cheks Hypothyroidism: Continue home management BPPV: Continue home management Hyperlipidemia: Continue home management CAD: Continue home management PPx: SCDs CODE STATUS full FEN patient self advanced diet to chicken tenders, fries, and soda prior to Dr. Rodriguez's evaluation 02/15/24. Will maintain regular diet if tolerated by patient. Disposition: Likely DC 02/16/2024 if patient remains hemodynamically stable after blood transfusion.
[2024-02-15] MEDS: 0.9 % SODIUM CHLORIDE 250 ML 25 ML IV (21:31)
[2024-02-15] MEDS: humaLOG 100 UNITS/ML 10ML VIAL (SSI) SQ (21:49)
[2024-02-16 00:46] VITALS: BP 131/53; PULSE 82; RESP 14; TEMP 36.8; O2SAT 92
[2024-02-16 04:00] VITALS: BP 137/68; PULSE 79; RESP 18; TEMP 37.1; O2SAT 92; BMI 28.7
[2024-02-16 04:09] LABS: Hematocrit 31.9 % (37.0-47.0); Hemoglobin 9.9 g/dL (12.2-16.2)
[2024-02-16 06:11] LABS: Blood Urea Nitrogen 15 mg/dl (7-17); Calcium 8.6 mg/dl (8.4-10.2); Carbon Dioxide 28 mmol/L (22.0-30.0); Chloride 103 mmol/L (98-107); Creatinine Clearance Estimated 57 mL/min (50-200); Estimated Glomerular Filt Rate 50 ml/min (>60); GFR (African American) 60 ML/MIN (>60); Glucose 181 mg/dl (74-100)
[2024-02-16 06:12] LABS: Anion Gap 7.9 mEq/L (5-15); Magnesium 1.8 mg/dl (1.6-2.3); Potassium 3.9 mmoL/L (3.5-5.1); Sodium 135 mmol/L (136-145)
--- NOTE | 2024-02-16 06:19 | PC.NURSE ---
Alert and oriented. 2 units transfused per order. Independent in the room. No complaints throughout the night. VS stable. Room air. Call light in reach.
[2024-02-16] MEDS: humaLOG 100 UNITS/ML 10ML VIAL (SSI) SQ ×2 (07:00→11:11)
[2024-02-16 07:40] LABS: Basophils # 0.1 K/mm3 (0-0.2); Basophils % 0.6 % (0.1-2.0); Eosinophils # 0.1 K/mm3 (0.0-0.4); Eosinophils % 0.9 % (0.1-12.0); Hematocrit 31.5 % (37.0-47.0); Hemoglobin 9.6 g/dL (12.2-16.2); Lymphocytes # 1.1 K/mm3 (0.7-4.5); Lymphocytes % 10.5 % (10-50); Mean Corpuscular HGB Conc 30.4 g/dL (31.8-35.4); Mean Corpuscular Hemoglobin 25.6 pg (27.0-31.2); Mean Corpuscular Volume 84.2 fl (81-99); Mean Platelet Volume 10.5 fl (7.4-10.4); Monocytes # 0.8 K/mm3 (0.1-1.0); Monocytes % 6.9 % (1.7-9.3); Neutrophils # 8.8 K/mm3 (1.8-7.8); Neutrophils % 81.1 % (37.0-80.0); Platelet Count 218 K/mm3 (142-424); Red Blood Count 3.74 M/mm3 (4.20-5.40); Red Cell Distribution Width 16.8 % (11.5-17.5); White Blood Count 10.9 K/mm3 (4.8-10.8)
[2024-02-16 08:00] VITALS: BP 140/65; PULSE 84; RESP 19; TEMP 36.6; O2SAT 98
[2024-02-16] MEDS: PANTOPRAZOLE 40MG VIAL 40 MG IV (08:48)
[2024-02-16] MEDS: SODIUM CHLORIDE 0.9% 10ML VIAL 10 ML IV (08:48)
--- NOTE | 2024-02-16 08:51 | EXP.SURG.CON ---
History of Present Illness *Admission Date: 02/15/24 *Reason for visit:: Status post colonoscopy with argon plasma coagulation *History of present illness: This is a 68-year-old female who underwent short-term repeat colonoscopy with argon plasma coagulation yesterday. Post-procedurally her hemoglobin was found to be 6.2. She was admitted overnight for completion of her blood transfusion and ongoing observation. She feels much better this morning. Forwarded from admission H&P: Really nice patient with history of recurrent GI bleeding secondary to AV malformations. Patient with past medical history of anemia, CAD, heart failure with preserved ejection fraction, bilateral plantar fasciitis, BPH, hypothyroidism, hyperlipidemia. Patient status post CO November 29, 2023, and received cardiac stent by Dr. Hoskins. Patient then experienced GI bleeding December 14 and required 2 units packed RBCs. Patient had another bleeding episode January 04 and required additional 2 units packed RBCs. Patient evaluated by general surgeon Dr. Tirado over summer status post EGD/colonoscopy and argon anticoagulation. Patient also received capsule endoscopy over summer. Reports recurrent bright red blood per rectum starting January 21. Patient's status post colonoscopy with argon anticoagulation done today. Patient had hemoglobin in 6.2 range after colonoscopy procedure. Patient subsequently admitted overnight for observation and 2 unit packed RBC blood transfusion. Patient eating chicken tenders, fries, and drinking a soda at time of evaluation by Dr. Rodriguez overnight. I was hungry and having eaten since Wednesday. Denies fevers, chills, sick contacts, recent travel, abdominal pain. States she feels great after colonoscopy procedure today. [facility] Disclaimer: The information contained in this section may have been updated after the patient was seen, as this information can be updated by other users. Medical History Migraines History of myocardial infarction Hypertension HFrEF (heart failure with reduced ejection fraction) History of fracture of right ankle Fracture of phalanx of right hand, closed Diabetes Asthma Hyperlipidemia (~03/08/18) Osteoarthritis Restless leg syndrome Depression Surgical History History of colonoscopy History of esophagogastroduodenoscopy (EGD) S/P cardiac cath History of appendectomy History of ankle surgery History of lumpectomy of right breast History of knee surgery H/O wrist surgery H/O shoulder surgery Family History Other Family history of cancer Social History Smoking Status: Former smoker alcohol intake: never substance use type: denies use current occupational status: employed Travel in the last 8 weeks: None Meds Home Medications and Allergies Home Medications ?Medication ?Instructions ?Recorded ?Confirmed ?Type cholecalciferol (vitamin D3) 1,250 1,250 mcg PO WEEKLY #5 caps 07/23/21 02/14/24 Rx mcg (50,000 unit) capsule cholecalciferol (vitamin D3) 25 25 mcg PO DAILY #90 caps 07/23/21 02/14/24 Rx mcg (1,000 unit) capsule pen needle, diabetic 31 gauge x #50 ea 07/23/21 02/14/24 Rx 5/16 (Comfort EZ Pen [place]) gabapentin 300 mg capsule 300 mg PO HS 04/10/22 02/14/24 History albuterol sulfate 90 mcg/actuation 2 inh inhalation Q4HP PRN Wheezing 11/30/23 02/14/24 History aerosol inhaler citalopram 40 mg tablet (Celexa) 40 mg PO DAILY 11/30/23 02/14/24 History aspirin 81 mg tablet,delayed 81 mg PO DAILY #90 tabs 12/08/23 02/14/24 Rx release (Adult Low Dose Aspirin) atorvastatin 40 mg tablet 40 mg PO HS #90 tabs 12/08/23 02/14/24 Rx insulin glargine 100 unit/mL (3 30 unit SQ HS 12/28/23 02/14/24 History mL) subcutaneous pen (Lantus Solostar U-100 Insulin) pantoprazole 40 mg tablet,delayed 40 mg PO BID #60 tabs 01/04/24 02/14/24 Rx release (Protonix) clopidogrel 75 mg tablet 75 mg PO DAILY 01/18/24 02/14/24 History donepezil 5 mg tablet 5 mg PO HS 01/18/24 02/14/24 History spironolactone 25 mg tablet 12.5 mg PO DAILY 01/18/24 02/14/24 History empagliflozin 10 mg tablet 10 mg PO DAILY 02/16/24 History (Jardiance) New Prescriptions to Start Prescriptions: Allergies Allergy/AdvReac Type Severity Reaction Status Date / Time metformin AdvReac Vomiting/GI Verified 02/15/24 12:08 upset Exam (Inpt) Vital signs and Labs for Last 24 Hours: Temp Pulse Resp BP Pulse Ox O2 Del Method O2 Flow Rate 97.8 F 84 19 140/65 98 Room Air 2 02/16/24 08:00 02/16/24 08:00 02/16/24 08:00 02/16/24 08:00 02/16/24 08:00 02/16/24 08:00 02/15/24 14:00 Laboratory Results - last 24 hr 02/15/24 12:20: POC Glucose 163 H 02/15/24 13:36: Hgb 6.2 L*, Hct 19.4 L* 02/15/24 13:42: POC Glucose 141 H 02/15/24 14:45: Blood Type A Positive, Antibody Screen Negative, Crossmatch (AHG) See Detail 02/16/24 00:50: Hgb 9.9 L D, Hct 31.9 L 02/16/24 05:19: WBC 10.9 H, RBC 3.74 L, Hgb 9.6 L, Hct 31.5 L, MCV 84.2, MCH 25.6 L, MCHC 30.4 L, RDW 16.8, Plt Count 218, MPV 10.5 H, Neut % (Auto) 81.1 H, Lymph % (Auto) 10.5, [place] % (Auto) 6.9, Eos % (Auto) 0.9, Baso % (Auto) 0.6, Neut # (Auto) 8.8 H, Lymph # (Auto) 1.1, [place] # (Auto) 0.8, Eos # (Auto) 0.1, Baso # (Auto) 0.1, Sodium 135 L, Potassium 3.9, Chloride 103, Carbon Dioxide 28, Anion Gap 7.9, BUN 15, Creatinine 1.10 H, Estimated Creat Clear 57, Estimated GFR 50 L, Est GFR ( Amer) 60, Glucose 181 H, Calcium 8.6, Magnesium 1.8 I & O for Labs for Last 24 Hours: Intake & Output 02/13/24 02/14/24 02/15/2421/24 11:59 11:59 11:59 11:59 Intake Total 2139 Output Total 0 / 0 Balance 2139 Weight 159 lb 162 lb Constitutional: no acute distress Respiratory: Absent respiratory distress Cardiac: Absent Tachycardia GI: Present soft Results Labs 02/16/24 05:19 02/16/24 05:19 Labs: Laboratory Results - last 24 hr 02/15/24 12:20: POC Glucose 163 H 02/15/24 13:36: Hgb 6.2 L*, Hct 19.4 L* 02/15/24 13:42: POC Glucose 141 H 02/15/24 14:45: Blood Type A Positive, Antibody Screen Negative, Crossmatch (AHG) See Detail 02/16/24 00:50: Hgb 9.9 L D, Hct 31.9 L 02/16/24 05:19: WBC 10.9 H, RBC 3.74 L, Hgb 9.6 L, Hct 31.5 L, MCV 84.2, MCH 25.6 L, MCHC 30.4 L, RDW 16.8, Plt Count 218, MPV 10.5 H, Neut % (Auto) 81.1 H, Lymph % (Auto) 10.5, [place] % (Auto) 6.9, Eos % (Auto) 0.9, Baso % (Auto) 0.6, Neut # (Auto) 8.8 H, Lymph # (Auto) 1.1, [place] # (Auto) 0.8, Eos # (Auto) 0.1, Baso # (Auto) 0.1, Sodium 135 L, Potassium 3.9, Chloride 103, Carbon Dioxide 28, Anion Gap 7.9, BUN 15, Creatinine 1.10 H, Estimated Creat Clear 57, Estimated GFR 50 L, Est GFR ( Amer) 60, Glucose 181 H, Calcium 8.6, Magnesium 1.8 Assessment and Plan *Assessment and plan (1) AVM (arteriovenous malformation) of colon: Status: Acute Category: Medical Code(s): K55.20 - Angiodysplasia of colon without hemorrhage Plan: Overall, doing well status post initial argon plasma coagulation. Likely discharge home with close outpatient follow-up (2) Anemia: Status: Acute Qualifiers: Anemia type: other cause Other causes of anemia: acute posthemorrhagic Qualified Code(s): D62 - Acute posthemorrhagic anemia Category: Medical Code(s): D64.9 - Anemia, unspecified
[2024-02-16 11:49] LABS: POC Glucose,Bedside 237 (70-110)
--- NOTE | 2024-02-16 14:26 | EXP.DC.SUM ---
General Admission date:: 02/15/24 HPI HPI HPI: This is a 68-year-old female who underwent short-term repeat colonoscopy with argon plasma coagulation yesterday. Post-procedurally her hemoglobin was found to be 6.2. She was admitted overnight for completion of her blood transfusion and ongoing observation. She feels much better this morning. Forwarded from admission H&P: Really nice patient with history of recurrent GI bleeding secondary to AV malformations. Patient with past medical history of anemia, CAD, heart failure with preserved ejection fraction, bilateral plantar fasciitis, BPH, hypothyroidism, hyperlipidemia. Patient status post CT November 29, 2023, and received cardiac stent by Dr. Hoskins. Patient then experienced GI bleeding December 14 and required 2 units packed RBCs. Patient had another bleeding episode January 04 and required additional 2 units packed RBCs. Patient evaluated by general surgeon Dr. Tirado over summer status post EGD/colonoscopy and argon anticoagulation. Patient also received capsule endoscopy over summer. Reports recurrent bright red blood per rectum starting January 21. Patient's status post colonoscopy with argon anticoagulation done today. Patient had hemoglobin in 6.2 range after colonoscopy procedure. Patient subsequently admitted overnight for observation and 2 unit packed RBC blood transfusion. Patient eating chicken tenders, fries, and drinking a soda at time of evaluation by Dr. Rodriguez overnight. I was hungry and having eaten since Wednesday. Denies fevers, chills, sick contacts, recent travel, abdominal pain. States she feels great after colonoscopy procedure today. Hospital Course Hospital Course Hospital Course: Patient presented to hospital with recurrent bright red blood per rectum secondary to AV malformations. Patient underwent colonoscopy 02/15/2024. Patient's hemoglobin below 7, so patient received 2 units packed RBCs during hospitalization. Patient's hemoglobin increased to 9.9 mg/dL after blood transfusion. Patient's hemoglobin remained stable during over 10-hour monitoring. After blood transfusion. Patient subsequently sent home with instructions to follow-up with both primary care physician and general surgery on outpatient basis for further management of gastric AV malformation disease. Exam Data for Last 24 hours Vital signs and Labs for Last 24 Hours: Temp Pulse Resp BP Pulse Ox O2 Del Method O2 Flow Rate 97.8 F 84 19 140/65 98 Room Air 2 02/16/24 08:00 02/16/24 08:00 02/16/24 08:00 02/16/24 08:00 02/16/24 08:00 02/16/24 12:58 02/15/24 14:00 Laboratory Results - last 24 hr 02/15/24 13:36: Hgb 6.2 L*, Hct 19.4 L* 02/15/24 14:45: Blood Type A Positive, Antibody Screen Negative, Crossmatch ([facility]) See Detail 02/16/24 00:50: Hgb 9.9 L D, Hct 31.9 L 02/16/24 05:19: WBC 10.9 H, RBC 3.74 L, Hgb 9.6 L, Hct 31.5 L, MCV 84.2, MCH 25.6 L, MCHC 30.4 L, RDW 16.8, Plt Count 218, MPV 10.5 H, Neut % (Auto) 81.1 H, Lymph % (Auto) 10.5, [place] % (Auto) 6.9, Eos % (Auto) 0.9, Baso % (Auto) 0.6, Neut # (Auto) 8.8 H, Lymph # (Auto) 1.1, [place] # (Auto) 0.8, Eos # (Auto) 0.1, Baso # (Auto) 0.1, Sodium 135 L, Potassium 3.9, Chloride 103, Carbon Dioxide 28, Anion Gap 7.9, BUN 15, Creatinine 1.10 H, Estimated Creat Clear 57, Estimated GFR 50 L, Est GFR ( Amer) 60, Glucose 181 H, Calcium 8.6, Magnesium 1.8 02/16/24 11:00: POC Glucose 237 H I & O for Last 24 hours: Intake & Output 02/13/24 02/14/24 02/15/24 02/16/24 23:59 23:59 23:59 23:59 Intake Total 1480 / 1780 930 / 930 Output Total 0 / 0 0 / 0 Balance 1480 / 1780 930 / 930 Weight 72.121 kg 73.482 kg *Routine HEENT Exam Head: Present normocephalic Eye: Present EOMI ENT: Present mucous membranes moist *Routine Neck Exam Neck: Present supple and full ROM *Routine Respiratory Exam Respiratory: Present CTA bilaterally *Routine Cardiovascular Exam Cardiovascular: Present RRR, Normal S1 and Normal S2 *Routine Abdominal Exam Abdominal: Present soft and normoactive bowel sounds *Routine Extremities Exam Extremities: Present normal capillary refill *Routine Skin Exam Skin: Present intact and dry *Routine Neurological Exam Neurological: Present alert and oriented X3 Results Data Completed and Pending Labs on day of discharge: Labs from last 24 hours 02/16/24 02/16/24 02/16/24 11:00 05:19 00:50 WBC 10.9 H RBC 3.74 L Hgb 9.6 L 9.9 L D Hct 31.5 L 31.9 L MCV 84.2 MCH 25.6 L MCHC 30.4 L RDW 16.8 Plt Count 218 MPV 10.5 H Neut % (Auto) 81.1 H Lymph % (Auto) 10.5 [place] % (Auto) 6.9 Eos % (Auto) 0.9 Baso % (Auto) 0.6 Neut # (Auto) 8.8 H Lymph # (Auto) 1.1 [place] # (Auto) 0.8 Eos # (Auto) 0.1 Baso # (Auto) 0.1 Sodium 135 L Potassium 3.9 Chloride 103 Carbon Dioxide 28 Anion Gap 7.9 BUN 15 Creatinine 1.10 H Estimated Creat Clear 57 Estimated GFR 50 L Est GFR ( Amer) 60 Glucose 181 H POC Glucose 237 H Calcium 8.6 Magnesium 1.8 Blood Type Antibody Screen Crossmatch ([facility]) 02/15/24 02/15/24 14:45 13:36 WBC RBC Hgb 6.2 L* Hct 19.4 L* MCV MCH MCHC RDW Plt Count MPV Neut % (Auto) Lymph % (Auto) [place] % (Auto) Eos % (Auto) Baso % (Auto) Neut # (Auto) Lymph # (Auto) [place] # (Auto) Eos # (Auto) Baso # (Auto) Sodium Potassium Chloride Carbon Dioxide Anion Gap BUN Creatinine Estimated Creat Clear Estimated GFR Est GFR ( Amer) Glucose POC Glucose Calcium Magnesium Blood Type A Positive Antibody Screen Negative Crossmatch ([facility]) See Detail DS: Diagnosis Discharge Diagnosis (1) AVM (arteriovenous malformation) of colon: Status: Acute Code(s): K55.20 - Angiodysplasia of colon without hemorrhage (2) Anemia: Status: Acute Code(s): D64.9 - Anemia, unspecified Qualifiers: Anemia type: other cause Other causes of anemia: acute posthemorrhagic Qualified Code(s): D62 - Acute posthemorrhagic anemia Meds Home Medications and Allergies Home Medications ?Medication ?Instructions ?Recorded ?Confirmed ?Type cholecalciferol (vitamin D3) 1,250 1,250 mcg PO WEEKLY #5 caps 07/23/21 02/14/24 Rx mcg (50,000 unit) capsule cholecalciferol (vitamin D3) 25 25 mcg PO DAILY #90 caps 07/23/21 02/14/24 Rx mcg (1,000 unit) capsule pen needle, diabetic 31 gauge x #50 ea 07/23/21 02/14/24 Rx 5/16 (Comfort EZ Pen [place]) gabapentin 300 mg capsule 300 mg PO HS 04/10/22 02/14/24 History albuterol sulfate 90 mcg/actuation 2 inh inhalation Q4HP PRN Wheezing 11/30/23 02/14/24 History aerosol inhaler citalopram 40 mg tablet (Celexa) 40 mg PO DAILY 11/30/23 02/14/24 History aspirin 81 mg tablet,delayed 81 mg PO DAILY #90 tabs 12/08/23 02/14/24 Rx release (Adult Low Dose Aspirin) atorvastatin 40 mg tablet 40 mg PO HS #90 tabs 12/08/23 02/14/24 Rx insulin glargine 100 unit/mL (3 30 unit SQ HS 12/28/23 02/14/24 History mL) subcutaneous pen (Lantus Solostar U-100 Insulin) pantoprazole 40 mg tablet,delayed 40 mg PO BID #60 tabs 01/04/24 02/14/24 Rx release (Protonix) clopidogrel 75 mg tablet 75 mg PO DAILY 01/18/24 02/14/24 History donepezil 5 mg tablet 5 mg PO HS 01/18/24 02/14/24 History spironolactone 25 mg tablet 12.5 mg PO DAILY 01/18/24 02/14/24 History New Prescriptions to Start Prescriptions: Allergies Allergy/AdvReac Type Severity Reaction Status Date / Time metformin AdvReac Vomiting/GI Verified 02/15/24 12:08 upset Discharge Plan Disposition Patient Disposition: Home, Self-Care Condition: Fair Follow up Plan Follow up with: Cassi Neal APRN [Primary Care Provider] - 02/21/24 2:30 pm Ángel Tirado MD [Staff Physician] - 03/01/24 2:00 pm (Also schedule repeat hemoglobin/hematocrit next week (patient to follow-up with ALEX Pierre regarding hemoglobin)) Prescriptions/Medication Reconciliation: Continued gabapentin 300 mg capsule 300 mg PO HS aspirin [Adult Low Dose Aspirin] 81 mg tablet,delayed release (DR/EC) 81 mg PO DAILY Qty: 90 3RF atorvastatin 40 mg tablet 40 mg PO HS Qty: 90 3RF insulin glargine [Lantus Solostar U-100 Insulin] 100 unit/mL (3 mL) insulin pen 30 unit SQ HS pantoprazole [Protonix] 40 mg tablet,delayed release (DR/EC) 40 mg PO BID Qty: 60 3RF donepezil 5 mg tablet 5 mg PO HS Patient Comments: TAKE 1 TABLET BY MOUTH EVERY DAY AT BEDTIME FOR MEMORY clopidogrel 75 mg tablet 75 mg PO DAILY Patient Comments: TAKE 1 TABLET BY MOUTH ONCE DAILY spironolactone 25 mg tablet 12.5 mg PO DAILY Patient Comments: TAKE 1/2 (ONE-HALF) TABLET BY MOUTH ONCE DAILY cholecalciferol (vitamin D3) 25 mcg (1,000 unit) capsule 25 mcg PO DAILY Qty: 90 3RF cholecalciferol (vitamin D3) 1,250 mcg (50,000 unit) capsule 1,250 mcg PO WEEKLY Qty: 5 3RF (DME) pen needle, diabetic [Comfort EZ Pen [place]] 31 gauge x 5/16 needle See Rx Instructions .Route Qty: 50 2RF Rx Instructions: As directed citalopram [Celexa] 40 mg tablet 40 mg PO DAILY albuterol sulfate 90 mcg/actuation HFA aerosol inhaler 2 inh INHALATION Q4HP PRN (Reason: Wheezing) Patient Comments: INHALE 2 PUFFS BY MOUTH EVERY 4 HOURS FOR WHEEZING Problem Reconciliation Problems Reviewed?: Yes Patient Discharge Instructions ACTIVITY: Continue current activity DIET: continue same diet Patient Instructions: DI for Colonoscopy, Moderate Sedation Print Language: [place]ayan Providers Primary Care Provider: Cassi Neal Provider: Ángel Tirado Attending Provider: Octavio Rodriguez
--- NOTE | 2024-02-18 12:36 | CARE MANAGER ---
Attempted to contact patient related to hospital discharge x2. Left Vm message. JACKIE Mcgregor
== END 2024-02-16 14:47 | disposition home or self-care (01) ==
LOC: 2ND 17:07
PROVIDERS: Admitting Provider Surgery; PCP Nurse Practitioner; Visit Provider Internal Medicine
PROC: 0DJD8ZZ Inspection of Lower Intestinal Tract, Via Natural or Artificial Opening Endoscopic (ICD-10-PCS; CPT 36430; principal; 2024-02-15 12:55)
DX: D62 Acute posthemorrhagic anemia (principal); I25.10 Atherosclerotic heart disease of native coronary artery without angina pectoris; E11.65 Type 2 diabetes mellitus with hyperglycemia; Z79.4 Long term (current) use of insulin; M72.2 Plantar fascial fibromatosis; E03.9 Hypothyroidism, unspecified; E78.5 Hyperlipidemia, unspecified; I25.2 Old myocardial infarction; Z95.5 Presence of coronary angioplasty implant and graft; Z79.899 Other long term (current) drug therapy; J45.909 Unspecified asthma, uncomplicated; I50.30 Unspecified diastolic (congestive) heart failure; I11.0 Hypertensive heart disease with heart failure; K55.21 Angiodysplasia of colon with hemorrhage; Z79.84 Long term (current) use of oral hypoglycemic drugs
CPT/HCPCS: 36430; 45382; 36415; 80048; 82962; 83735; 85014; 85018; 85025; 86850; C2618; G0378; J2704; J7120; P9016

== ENCOUNTER 2024-02-18 14:49 | Outpatient (CLI) | payer MEDICARE, SELFPAY ==
[2024-02-18 15:32] LABS: Hematocrit 29.4 % (37.0-47.0); Hemoglobin 9.3 g/dL (12.2-16.2)
== END 2024-02-18 23:59 | disposition home or self-care (01) ==
LOC: LAB 14:50
PROVIDERS: PCP Nurse Practitioner; Visit Provider Surgery
DX: K92.2 Gastrointestinal hemorrhage, unspecified (principal); R71.0 Precipitous drop in hematocrit
CPT/HCPCS: 36415; 85014; 85018

== ENCOUNTER 2024-02-21 12:30 | Outpatient (CLI) | payer MEDICARE, SELFPAY ==
[2024-02-21 13:00] LABS: Hematocrit 29.8 % (37.0-47.0); Hemoglobin 9.3 g/dL (12.2-16.2)
== END 2024-02-21 23:59 | disposition home or self-care (01) ==
LOC: LAB 12:31
PROVIDERS: PCP Nurse Practitioner; Visit Provider Surgery
DX: K92.2 Gastrointestinal hemorrhage, unspecified (principal)
CPT/HCPCS: 36415; 85014; 85018

== ENCOUNTER 2024-03-01 14:21 | Outpatient (CLI) | payer MEDICARE, SELFPAY ==
[2024-03-01 14:43] LABS: Hematocrit 29.3 % (37.0-47.0); Hemoglobin 9.1 g/dL (12.2-16.2)
== END 2024-03-01 23:59 | disposition home or self-care (01) ==
LOC: LAB 14:22
PROVIDERS: PCP Nurse Practitioner; Visit Provider Surgery
DX: K92.2 Gastrointestinal hemorrhage, unspecified (principal)
CPT/HCPCS: 36415; 85014; 85018

== ENCOUNTER 2024-03-29 11:04 | Outpatient (CLI) | payer MEDICARE, SELFPAY ==
[2024-03-29 12:34] LABS: Hematocrit 28.8 % (37.0-47.0); Hemoglobin 8.9 g/dL (12.2-16.2)
== END 2024-03-29 23:59 | disposition home or self-care (01) ==
LOC: LAB 11:05
PROVIDERS: PCP Nurse Practitioner; Visit Provider Surgery
DX: D12.6 Benign neoplasm of colon, unspecified (principal); D64.9 Anemia, unspecified
CPT/HCPCS: 36415; 85014; 85018

== ENCOUNTER 2024-05-03 10:34 | Outpatient (CLI) | payer MEDICARE, SELFPAY ==
[2024-05-03 11:09] LABS: Hematocrit 23.6 % (37.0-47.0); Hemoglobin 7.4 g/dL (12.2-16.2)
== END 2024-05-03 23:59 | disposition home or self-care (01) ==
PROVIDERS: PCP Nurse Practitioner; Visit Provider Surgery
DX: D12.6 Benign neoplasm of colon, unspecified (principal)
CPT/HCPCS: 36415; 85014; 85018

== ENCOUNTER 2024-05-04 10:34 | Outpatient (CLI) | payer MEDICARE, SELFPAY ==
[2024-05-04] VITALS (10 sets, daily range): BP systolic 124–153; BP diastolic 57–75; PULSE 78–89; RESP 20; TEMP 36.7–37.2; O2SAT 99–100; BMI 26.7
[2024-05-04] MEDS: 0.9 % SODIUM CHLORIDE 250 ML 25 ML IV (11:52)
== END 2024-05-04 15:33 | disposition home or self-care (01) ==
LOC: INF 10:34
PROVIDERS: PCP Nurse Practitioner; Visit Provider Surgery
DX: D64.9 Anemia, unspecified (principal)
CPT/HCPCS: 36430; 86850; P9016

== ENCOUNTER 2024-05-05 13:23 | Outpatient (CLI) | payer MEDICARE, SELFPAY ==
[2024-05-05 14:02] LABS: Hematocrit 26.8 % (37.0-47.0); Hemoglobin 8.8 g/dL (12.2-16.2)
== END 2024-05-05 23:59 | disposition home or self-care (01) ==
LOC: LAB.DROPOF 05-08 14:52
PROVIDERS: PCP Surgery; Visit Provider Surgery
DX: D62 Acute posthemorrhagic anemia (principal)
CPT/HCPCS: 36415; 85014; 85018

== ENCOUNTER 2024-05-09 09:21 | Day surgery (SDC) | payer MEDICARE, SELFPAY ==
[2024-05-05 12:04] VITALS: BMI 26.7
--- NOTE | 2024-05-05 12:10 | SUR.PREOP ---
1209: Message sent to Cardiology for cardiac clearance.
--- NOTE | 2024-05-09 09:32 | P.PCN_ITS ---
Procedure: Date: 05/09/24 Patient Date of :: 1955 Procedure Performed:: Colonoscopy with epinephrine injection and Resolution 360 clip placement (x 2) Indications:: Anemia/gastrointestinal hemorrhage (likely secondary to colonic arteriovenous malformations) Patient has recently undergone multiple endoscopic evaluations, UGI/SBFT, and capsule endoscopy with regard to gastrointestinal hemorrhage/anemia. 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 Colonoscopy with argon plasma coagulation of multiple right colonic arteriovenous malformations was completed on February 15, 2024. The patient initially progressed well; however, over the past few weeks she has noticed increased weakness. Repeat hemoglobin 7.4 (now status post 1 unit packed red blood cells with posttransfusion hemoglobin 8.8). Performing Provider:: Ángel Tirado MD Referring Provider:: . Sedation:: Monitored anesthesia care Procedure:: After informed consent was obtained the patient was taken to the endoscopy suite. Sedation ensued after the patient was transferred to the left lateral decubitus position. Pulse, blood pressure, and oxygen saturation were monitored throughout the procedure. Digital rectal exam revealed no significant abnormality. The colonoscope was placed in position. The entire colon was evaluated. The colonoscope was carefully removed and the patient was transf erred to recovery in stable condition. Please see findings and specimens below for detail. Findings:: Bowel preparation relatively fair Moderate spasticity/lack of relaxation Sessile right colon polyp Cecum/right colon without obvious AVM/active bleeding (site of prior argon plasma coagulation) Single focus of active sanguinous ooze at 55 cm (presumed AVM) Control of single focus of sanguinous ooze with epinephrine injection and Resolution 360 clip placement (x 2) Specimens:: Sessile right colon polyp (cold biopsy forceps) Recommendations:: Secondary to history of polyps the patient is in need of colonoscopy between November 2025 and November 2026. Continue serial hemoglobin/hematocrit. If short-term repeat colonoscopy required the procedure will likely be deferred to the gastroenterology service. Complications:: No immediate Estimated blood obtained (mL): 5 Colonoscopy Component Colonoscopy Component Was a colonoscopy performed during today's procedure?: Yes Recommended follow up colonoscopy of at least 10 years?: No If no, follow up colonoscopy recommended in ___ years?: (See above) Reason for not recommending >/= 10 yr follow-up interval?: (See above)
[2024-05-09 09:37] VITALS: BP 145/76; PULSE 97; RESP 18; TEMP 36.2; O2SAT 97
--- NOTE | 2024-05-09 09:37 | P.PNANES_ITS ---
[facility] Disclaimer: The information contained in this section may have been updated after the patient was seen, as this information can be updated by other users. Medical History Myocardial infarction Migraines History of myocardial infarction Hypertension HFrEF (heart failure with reduced ejection fraction) History of fracture of right ankle Fracture of phalanx of right hand, closed Diabetes Asthma Hyperlipidemia (~03/08/18) Osteoarthritis Restless leg syndrome Depression Surgical History History of colonoscopy History of esophagogastroduodenoscopy (EGD) S/P cardiac cath History of appendectomy History of ankle surgery History of lumpectomy of right breast History of knee surgery H/O wrist surgery H/O shoulder surgery Family History Other Family history of cancer Social History Smoking Status: Former smoker alcohol intake: never substance use type: denies use current occupational status: employed Travel in the last 8 weeks: None [facility] Anesthesia Checklist Patient Identification Patient Identification: Arm Band and Verbal (Name & ) Structural Data Admitted From: Home Planned Operative Procedure/s: Colonoscopy Consent for Planned Operative Procedure(s) Verified: Yes Verified Documents: Surgical Consent and History and Physical NPO Status Verified Time NPO: 05:45 Chart Verification Results Verified: CBC, BMP, ECG and Chest Xray Additional verifications Fingerstick Blood Glucose: 90 Patient : No Anesthesia Reactions: No Cardiovascular Assessment Heart Sounds: S1 & S2 Pulse Rhythm: Irregular Peripheral Edema: No Airway Assessment Mallampati Score:: Class II C-Spine Mobility Assessed: Yes (FROM demonstrated) TMJ Mobility Assessed: Yes Dentition: Good Dentition (Nothing loose per pt.) Neurological Assessment Level of Consciousness: Awake, Alert, Appropriate and Follows Commands Hx Seizures: No Numbness or tingling in extremities: No Anesthesia Plan Anesthesia Risk discussed: Yes Anesthesia Plan: Verified ASA Class: III Anesthesia Type: MAC
[2024-05-09 09:52] VITALS: O2SAT 98
[2024-05-09 10:27] VITALS: BP 156/83; PULSE 93; RESP 17; TEMP 36.6; O2SAT 93
[2024-05-09 10:37] VITALS: BP 150/75; PULSE 94; RESP 17; O2SAT 98
[2024-05-09 10:45] LABS: Hematocrit 27.4 % (37.0-47.0)
[2024-05-09 10:47] VITALS: BP 159/77; PULSE 90; RESP 17; O2SAT 97
[2024-05-09 10:57] VITALS: BP 146/69; PULSE 87; RESP 18; O2SAT 96
[2024-05-10 09:54] LABS: POC Glucose,Bedside 90 (70-110)
== END 2024-05-09 11:00 | disposition home or self-care (01) ==
PROVIDERS: PCP Nurse Practitioner; Visit Provider Surgery
PROC: 0DJD8ZZ Inspection of Lower Intestinal Tract, Via Natural or Artificial Opening Endoscopic (ICD-10-PCS; CPT 45380; principal; 2024-05-09 10:30)
DX: K55.21 Angiodysplasia of colon with hemorrhage (principal); D50.0 Iron deficiency anemia secondary to blood loss (chronic); D12.2 Benign neoplasm of ascending colon; E11.8 Type 2 diabetes mellitus with unspecified complications; Z79.4 Long term (current) use of insulin
CPT/HCPCS: 45380; 45382; 82962; 85014; 85018; 88305

== ENCOUNTER 2024-05-17 14:26 | Outpatient (CLI) | payer MEDICARE, SELFPAY ==
[2024-05-17 14:53] LABS: Hematocrit 25.9 % (37.0-47.0); Hemoglobin 8.2 g/dL (12.2-16.2)
== END 2024-05-17 23:59 | disposition home or self-care (01) ==
LOC: LAB 14:28
PROVIDERS: PCP Nurse Practitioner; Visit Provider Surgery
DX: D12.6 Benign neoplasm of colon, unspecified (principal)
CPT/HCPCS: 36415; 85014; 85018

== ENCOUNTER 2024-05-19 09:54 | Outpatient (CLI) | payer MEDICARE, SELFPAY ==
[2024-05-19 10:26] LABS: Hematocrit 27.1 % (37.0-47.0); Hemoglobin 8.6 g/dL (12.2-16.2)
== END 2024-05-19 23:59 | disposition home or self-care (01) ==
PROVIDERS: PCP Nurse Practitioner; Visit Provider Surgery
DX: K92.2 Gastrointestinal hemorrhage, unspecified (principal)
CPT/HCPCS: 36415; 85014; 85018

== ENCOUNTER 2024-05-24 10:58 | Outpatient (CLI) | payer MEDICARE, SELFPAY ==
[2024-05-24 11:23] LABS: Hematocrit 26.7 % (37.0-47.0); Hemoglobin 8.4 g/dL (12.2-16.2)
== END 2024-05-24 23:59 | disposition home or self-care (01) ==
LOC: LAB 10:59
PROVIDERS: PCP Nurse Practitioner; Visit Provider Surgery
DX: K92.2 Gastrointestinal hemorrhage, unspecified (principal)
CPT/HCPCS: 36415; 85014; 85018

== ENCOUNTER 2024-06-07 11:35 | Outpatient (CLI) | payer MEDICARE, SELFPAY ==
[2024-06-07 11:59] LABS: Hematocrit 26.7 % (37.0-47.0); Hemoglobin 8.9 g/dL (12.2-16.2)
== END 2024-06-07 23:59 | disposition home or self-care (01) ==
LOC: LAB 11:35
PROVIDERS: PCP Nurse Practitioner; Visit Provider Surgery
DX: D62 Acute posthemorrhagic anemia (principal)
CPT/HCPCS: 36415; 85014; 85018

== ENCOUNTER 2024-07-04 15:24 | Outpatient (CLI) | payer MEDICARE, SELFPAY ==
[2024-07-04 16:01] LABS: Basophils # 0.1 K/mm3 (0-0.2); Basophils % 0.6 % (0.1-2.0); Eosinophils # 0.1 K/mm3 (0.0-0.4); Eosinophils % 0.7 % (0.1-12.0); Hematocrit 27.5 % (37.0-47.0); Lymphocytes # 0.8 K/mm3 (0.7-4.5); Lymphocytes % 8.6 % (10-50); Mean Corpuscular HGB Conc 29.1 g/dL (31.8-35.4); Mean Corpuscular Hemoglobin 21.5 pg (27.0-31.2); Mean Corpuscular Volume 73.9 fl (81-99); Mean Platelet Volume 12.3 fl (7.4-10.4); Monocytes # 0.6 K/mm3 (0.1-1.0); Monocytes % 6.1 % (1.7-9.3); Neutrophils % 83.7 % (37.0-80.0); Platelet Count 305 K/mm3 (142-424); Red Blood Count 3.72 M/mm3 (4.20-5.40); Red Cell Distribution Width 15.8 % (11.5-17.5); White Blood Count 9.6 K/mm3 (4.8-10.8)
[2024-07-04 16:32] LABS: Alanine Aminotransferase 21 U/L (12-78); Albumin Level 3.7 g/dl (3.5-5.0); Alkaline Phosphatase 71 U/L (38-126); Anion Gap 12.7 mEq/L (5-15); Aspartate Amino Transferase 23 U/L (14-36); Bilirubin,Direct 0.4 mg/dl (0.0-0.4); Bilirubin,Total 0.4 mg/dl (0.2-1.3); Bilirubin,Unconjugated 0.1 mg/dL (0.0-1.1); Blood Urea Nitrogen 18 mg/dl (7-17); Calcium 9.2 mg/dl (8.4-10.2); Carbon Dioxide 26 mmol/L (22.0-30.0); Chloride 102 mmol/L (98-107); Chol/HDL Ratio 4.2 (1-3.5); Cholesterol 104 mg/dl (140-200); Estimated Glomerular Filt Rate 45 ml/min (>60); GFR (African American) 54 ML/MIN (>60); Glucose 275 mg/dl (74-100); HDL Cholesterol 25 mg/dl (40-60); Magnesium 1.6 mg/dl (1.6-2.3); Potassium 4.7 mmoL/L (3.5-5.1); Sodium 136 mmol/L (136-145); Triglycerides 125 mg/dl (30-150); VLDL Cholesterol 25 mg/dL (0-40)
[2024-07-04 16:41] LABS: NT Pro Brain Natriuretic Pep. 5210 pg/mL (0-125)
[2024-07-04 16:43] LABS: Direct LDL Cholesterol 59.88 mg/dL (100-129)
[2024-07-04 16:46] LABS: Free T4 (Free Thyroxine) 1.19 ng/dl (0.78-2.19)
[2024-07-04 17:02] LABS: Thyroid Stimulating Hormone 1.14 uIU/mL (0.465-4.68)
== END 2024-07-04 23:59 | disposition home or self-care (01) ==
LOC: LAB 15:24
PROVIDERS: PCP Nurse Practitioner; Visit Provider Internal Medicine
DX: K21.9 Gastro-esophageal reflux disease without esophagitis (principal); I95.89 Other hypotension; D62 Acute posthemorrhagic anemia; I25.10 Atherosclerotic heart disease of native coronary artery without angina pectoris; I50.30 Unspecified diastolic (congestive) heart failure; E11.65 Type 2 diabetes mellitus with hyperglycemia; I50.20 Unspecified systolic (congestive) heart failure; E78.5 Hyperlipidemia, unspecified; R06.09 Other forms of dyspnea; I50.9 Heart failure, unspecified; R06.00 Dyspnea, unspecified; I11.9 Hypertensive heart disease without heart failure
CPT/HCPCS: 36415; 80048; 80061; 80076; 83735; 83880; 84439; 84443; 85025

== ENCOUNTER 2024-07-10 16:13 | Outpatient (CLI) | payer MEDICARE, SELFPAY ==
[2024-07-10 17:44] LABS: NT Pro Brain Natriuretic Pep. 4780 pg/mL (0-125)
[2024-07-10 18:06] LABS: Anion Gap 13.2 mEq/L (5-15); Blood Urea Nitrogen 28 mg/dl (7-17); Calcium 9.2 mg/dl (8.4-10.2); Carbon Dioxide 30 mmol/L (22.0-30.0); Chloride 96 mmol/L (98-107); Estimated Glomerular Filt Rate 28 ml/min (>60); GFR (African American) 34 ML/MIN (>60); Glucose 152 mg/dl (74-100); Potassium 4.2 mmoL/L (3.5-5.1); Sodium 135 mmol/L (136-145)
== END 2024-07-10 23:59 | disposition home or self-care (01) ==
LOC: LAB 16:13
PROVIDERS: PCP Nurse Practitioner; Visit Provider Physician Assistant
DX: I25.10 Atherosclerotic heart disease of native coronary artery without angina pectoris (principal); I50.30 Unspecified diastolic (congestive) heart failure; I50.20 Unspecified systolic (congestive) heart failure; K21.9 Gastro-esophageal reflux disease without esophagitis; E78.5 Hyperlipidemia, unspecified
CPT/HCPCS: 36415; 80048; 83880

== ENCOUNTER 2024-07-18 07:58 | Outpatient (CLI) | payer MEDICARE, SELFPAY ==
--- NOTE | 2024-07-18 08:03 | CA_ITS ---
FINAL REPORT CLINICAL HISTORY: CAD, Ex-smoker, DM, HTN, HLD, Leg pain, cold feet COMPARISON: None FINDINGS: BILATERAL LOWER EXTREMITY DUPLEX DOPPLER Color Doppler and duplex Doppler of the bilateral lower extremity was performed. Spectral analysis was also performed. Velocities were measured at multiple levels. All velocities are in centimeters per second. RIGHT GEAR LAPPING MACHINE OPERATOR: 261 Prof: 192 SFA Prox: 223 SFA Mid: 151 SFA Distal: 132 Pop Prox: 107 Pop Dist: 68 MANAGER FINANCIAL Mid: 42 MANAGER FINANCIAL Dist: 72 Per Prox: 71 MAXIMINO: 40 Waveforms are biphasic. LEFT GEAR LAPPING MACHINE OPERATOR: 248 Prof: 257 SFA Prox: 257 SFA Mid: 129 SFA Distal: 78 Pop Prox: 87 Pop Dist: 104 MANAGER FINANCIAL Mid: 50 MANAGER FINANCIAL Dist: 33 Per Prox: 83 MAXIMINO: 46 Waveforms are biphasic. IMPRESSION: Waveforms are noted to be biphasic. No evidence of significant arterial occlusive disease identified. Reviewed, Interpreted and Dictated by Patricio Urban MD Transcribed by More Luis Authenticated and . [facility]
--- NOTE | 2024-07-18 08:03 | CA_ITS ---
APPROVED REPORT EXAM: Comprehensive 2D, Doppler, and color-flow Echocardiogram Electronic Data Processing Auditor: Nati Price RVT Ht: 5 ft 3 in Wt: 163lbs BSA: 1.77 BP: 121/41 mmHg Indications: SOA,EDEMA,DM,HTN,HLD,SMOKER,CAD,PERICARDIAL EFFUSION 2D Dimensions Left Atrium 4.56 cm F: 2.7 - 3.8 LA Volume 77.50 mL RVID Base (AP4) 2.93 cm (M/F) 2.5-4.1 LA Volume Index 43.79 mL/m2 (M/F) 16-34 LVOT 2.03 cm (M/F) 1.5-2.5 EF AP4 45.80 % GL Strain -11.4 % M-Mode Dimensions RVDd 3.37 cm (0.9-2.6) LVDd 4.69 cm (3.5-5.7) Ao Diam 3.01 cm (2.0-3.7) LVDs 3.17 cm (3.5-5.7) IVSd 1.32 cm (0.6-1.1) PWd 0.76 cm (0.6-1.1) EF (Teich) 60.70% FS 32.40% EDV (Teich) 101.90 mL TAPSE 2.04 (<1.7) ESV (Teich) 40.00 mL LV Diastology E Decel Time 183 (160-240 msec) E/A Ratio 1.7 MED E' 6.3 (>= 7 cm/sec) E'/MED E' Ratio 22.40 (<= 14) LAT E' 5.2 (>= 10 cm/sec) E/LAT E' Ratio 27.13 (<= 14) Aortic Valve LVOT Max 106.0 (70-110 cm/s) HUBER Index 1.32 cm2/m2 LVOT VTI 23.09 cm AoV Peak Krishna. 140.0 (50-130 cm/s) AO Peak GR. 7.50 mmHg AO Mean GR. 5.10 (<5 mmHg) AO VTI 32.1 (18-25 cm) HUBER (VTI) 2.33 (2.5-4.5 cm2) Mitral Valve MV E Max Krishna. 141.0 (40-130 cm/s) MV A Velocity 82.0 (40-130 cm/s) E/A Ratio 1.73 MV Decel. Time 183 (160-240 ms) MV Mean Gr. 2.80 (<2mmHg) MV PHT 61.0 ms Tricuspid Valve TR P. Velocity 312.00 cm/s RAP Estimate 10.00 mmHg RVSP 48.90 mmHg Left Ventricle The left ventricle is normal size. The left ventricular systolic function is mildly reduced. There is normal left ventricular wall thickness. There is mild global hypokinesis. The distal septal and anteroseptal LV barbosa are moderately hypokinetic. Diastolic function is indeterminate. LVEF is 45%. Right Ventricle The right ventricle is normal size. The right ventricular systolic function is normal. Atria The left atrium is mildly dilated. The right atrium size is normal. There is no Doppler evidence of interatrial shunt. Aortic Valve The aortic valve is mildly thickened. There is no aortic valvular stenosis. Mild aortic regurgitation. Mitral Valve Mild mitral annular calcification. The mitral valve leaflets are mildly thickened. Borderline mitral stenosis is present. Mean MV gradient is 5 mmHg (HR 83 bpm). Mild mitral regurgitation. Tricuspid Valve The tricuspid valve leaflets are thin and pliable. Mild tricuspid regurgitation. RVSP is 30-35 mmHg. Pulmonic Valve The pulmonary valve is normal in structure. Mild pulmonic regurgitation. Great Vessels The aortic root is normal in size. The ascending aorta is not well-visualized. IVC is normal in size and collapses >50% with inspiration. Pericardium There is a small sized pocket of pericardial effusion noted posteriorly. The largest dimension measures 0.5 cm. No echo indications of tamponade. Other Information Study Quality: Fair Conclusion Mildly reduced LV systolic function (LVEF 45%). Distal septal and anteroseptal LV barbosa are moderately hypokinetic. Mild LA dilation. The AI, mild MR, mild TR, mild PI. There is a small sized pocket of pericardial effusion noted posteriorly. The largest dimension measures 0.5 cm. No echo indications of tamponade. When directly compared to the prior studies from 11/30/2023 and 12/09/2023, there is no significant change to LVEF or size/location of the pericardial effusion. Electronically signed by : Julita Moyer MD 07/25/2024 12:57:25
--- NOTE | 2024-07-18 08:03 | CA_ITS ---
FINAL REPORT TECHNIQUE: Bilateral lower extremity venous duplex was performed with augmentation and compression. CLINICAL HISTORY: Painful veins with itching sensations FINDINGS: Proper flow is seen throughout the deep venous systems bilaterally. There is no evidence of deep venous thrombosis. IMPRESSION: No evidence of deep venous thrombosis. Reviewed, Interpreted and Dictated by Patricio Urban MD Transcribed by Kasia Hare Authenticated and [facility]
--- NOTE | 2024-07-18 08:03 | US_ITS ---
FINAL REPORT CLINICAL HISTORY: claudication, DM, HTN, CAD, HLD, COMPARISON: None FINDINGS: ANKLE-BRACHIAL PRESSURE INDICES Pressure indices are as follows: RIGHT LOWER EXTREMITY: Ankle-brachial pressure index: 1.1 Comments: Normal LEFT LOWER EXTREMITY: Ankle-brachial pressure index: 1.12 Comments: Normal CONCLUSION: No evidence of significant obstructive peripheral vascular disease of the lower extremities Reviewed, Interpreted and Dictated by Patricio Urban MD Transcribed by Ginger Quinonez Authenticated and [facility]
[2024-07-18 08:38] LABS: Basophils % 0.6 % (0.1-2.0); Eosinophils # 0.2 K/mm3 (0.0-0.4); Eosinophils % 2.5 % (0.1-12.0); Hematocrit 32.4 % (37.0-47.0); Hemoglobin 9.3 g/dL (12.2-16.2); Lymphocytes % 13.4 % (10-50); Mean Corpuscular HGB Conc 28.7 g/dL (31.8-35.4); Mean Corpuscular Hemoglobin 21.1 pg (27.0-31.2); Mean Corpuscular Volume 73.6 fl (81-99); Mean Platelet Volume 12.3 fl (7.4-10.4); Monocytes # 0.7 K/mm3 (0.1-1.0); Monocytes % 10.2 % (1.7-9.3); Neutrophils # 5.3 K/mm3 (1.8-7.8); Neutrophils % 72.9 % (37.0-80.0); Platelet Count 273 K/mm3 (142-424); Red Cell Distribution Width 16.3 % (11.5-17.5); White Blood Count 7.2 K/mm3 (4.8-10.8)
[2024-07-18 09:23] LABS: Blood Urea Nitrogen 19 mg/dl (7-17); Calcium 9.4 mg/dl (8.4-10.2); Carbon Dioxide 26 mmol/L (22.0-30.0); Chloride 103 mmol/L (98-107); Estimated Glomerular Filt Rate 41 ml/min (>60); GFR (African American) 49 ML/MIN (>60); Glucose 123 mg/dl (74-100); Sodium 139 mmol/L (136-145)
[2024-07-18 10:26] LABS: Anion Gap 13.9 mEq/L (5-15); Potassium 3.9 mmoL/L (3.5-5.1)
== END 2024-07-18 23:59 | disposition home or self-care (01) ==
LOC: RT 08:00
PROVIDERS: PCP Nurse Practitioner; Visit Provider Internal Medicine
DX: I51.7 Cardiomegaly (principal); I25.10 Atherosclerotic heart disease of native coronary artery without angina pectoris; I50.23 Acute on chronic systolic (congestive) heart failure; M79.604 Pain in right leg; M79.605 Pain in left leg; I73.9 Peripheral vascular disease, unspecified; R06.09 Other forms of dyspnea; R60.9 Edema, unspecified; I95.89 Other hypotension; D62 Acute posthemorrhagic anemia; E11.65 Type 2 diabetes mellitus with hyperglycemia; E78.5 Hyperlipidemia, unspecified
CPT/HCPCS: 36415; 80048; 85025; 93306; 93923; 93925; 93970

== ENCOUNTER 2024-12-08 11:14 | Outpatient (CLI) | payer MEDICARE, SELFPAY ==
--- NOTE | 2024-12-08 11:15 | CA_ITS ---
APPROVED REPORT EXAM: Limited 2D Echocardiogram Paleology Teacher: Nati Price RVT Ht: 5 ft 3 in Wt: 163lbs BSA: 1.77 BP: 120/56 mmHg Indications: EF CHECK,PERICARDIAL EFFUSION CHECK,CARDIOMYOPATHY M-Mode Dimensions RVDd 2.76 cm (0.9-2.6) LA Diam 4.16 cm (1.9-4.0) LVDd 4.89 cm (3.5-5.7) LVDs 3.66 cm (3.5-5.7) IVSd 0.89 cm (0.6-1.1) PWd 0.46 cm (0.6-1.1) EF (Teich) 49.60% FS 25.20% EDV (Teich) 112.30 mL ESV (Teich) 56.60 mL Other Information Study Quality: Fair Conclusion This is a limited TTE to evaluate LV systolic function and pericardial effusion. Limited windows are obtained. The left ventricle is normal in size. There is normal LV wall thickness. There is mild reduction in global LV systolic function. The mid to distsal septal, inferoseptal, and anteroseptal LV barbosa are akinetic. There is likely an aneurysm present in the distal inferoseptal LV wall. LVEF is 45%. There is a trivial posterior pericardial effusion present. Compared to prior study from 07/18/2024, the LV systolic function is overall unchanged. The pericardial effusion size has improved. Electronically signed by : Julita Moyer MD 12/08/2024 13:21:01
--- OUTSIDE RECORDS SUMMARY | 2024-12-08 11:20 | XMS_ITS | Continuity of Care Document ---
Author Organization [facility] Address [address] [place] [address] Care Team Providers Care Scrub Woman Name Role Phone KAYLEE BELLAMY Primary Care Provider KAYLEE LOPEZ Neurologist Assessment No assessment recorded. Plan of Treatment Reminders Order Date Submit Date Provider Last Modified By Organization Details Last Modified Time Details Appointments RECHECK 2024 12:00P M KAYLEE BELLAMY CONTROL SPECIALIST Not available Not available Not available Lab None recorded. Referral None recorded. Procedures None recorded. Surgeries None recorded. Imaging None recorded. Medication Orders methocarb lorrie 750 mg tablet 2024 025 [facility], [address], [place], [address], 10/17/2024 14:06:40 Patient TargetsNo targets recorded. Patient InstructionsNo instructions recorded. Reason for Referral None Reported. Results Created Date Observation Date Name Description Value Unit Range Abnormal Flag Note LastModifiedBy Organization Detail LastModifiedTime 09/26/19 25 09/22/2024 MRI, brain , w/o contr ast Denae gonzalez [facility] [address] [facility] [place] [address] [phone] Patien t Name: ANTONIO wilson : 957 Patijohn t 9 Orderi ng Provid er: PARAM LOPEZ EXAM DATE: 2024 EXAM: MR BRAIN W/O CONTRA ST HISTOR Y: 68-yea r-old female with unstea dy gait and shortn ess of breath . COMPAR DARCI: None. FINDIN GS: The ventri cles are symmet charbel, but mildly to modera tely enlarg ed. There is no mass, mass effect , or midlin e shift. There is no abnorm al extra- axial fluid, intrac ranial hemorr janey, or infarc tion. The diffus ion weight ed sequen jayson are normal . There are mild to modera te perive ntricu lar white matter change s. The test engineering intern al caroti d and basila r flow-v oids are normal . There is no mucosa l thicke guillermo in the parana sandra sinuse s. The mastoi d air cells are clear. IMPRES NOEL: 1. There is mild to modera te diffus e cerebr al atroph y and white matter change s in the brain. Interp reted By: Cee byrnes MD Electr onical ly Signed By: Cee byrnes MD on 025 7:07 AM [email or web address] [facility] [address] [place], [address], 09/25/2024 08:28:49 10/18/19 25 10/17/2024 XR, ribs, unila teral , 3 or more view [facility] [address] [place] [address] Alanajohn wilson Name: ANTONIO wilson : 957 Patijohn wilson 9 Orderi ng Provid er: AJ Jennifer CRISTOBALPAT Rodriguez EXAM DATE: 2024 EXAM: XR LT RIBS UNI MIN 3 VW, PA CHEST CLINIC AL INFORM ATION: Left rib pain. IMAGES PROVID ED: PA view of the chest with AP and both obliqu e views of the left ribs. BB marker is placed in the area of pain. COMPAR DARCI: None. FINDIN GS: Heart size is within normal limits . Lung leos are clear. No rib fractu re or focal abnorm ality is seen. IMPRES NOEL: Normal radiog raphs of the chest and left ribs Interp reted By: Tono Velazquez MD Electr onical ly Signed By: Tono Velazquez MD on 025 1:12 PM [email or web address] [facility] [place] [address], [place], [address], 10/17/2024 18:02:50 Result Notes Documentation Provider Name and Address Organization Details Recorded Time Xr, Ribs, Unilateral, 3 Or More View : [facility] [place] [address] [place] [address] Patient Name: BRENDEN VERAS Patient : 1955 Patient Ordering Provider: SUSU ALLISON EXAM DATE: 10/17/2024 EXAM: XR LT RIBS UNI MIN 3 VW, PA CHEST CLINICAL INFORMATION: Left rib pain. IMAGES PROVIDED: PA view of the chest with AP and both oblique views of the left ribs. BB marker is placed in the area of pain. COMPARISON: None. FINDINGS: Heart size is within normal limits. Lung leos are clear. No rib fracture or focal abnormality is seen. IMPRESSION: Normal radiographs of the chest and left ribs Interpreted By: Tono Velazquez MD S [facility] [address] [place], [address], [facility] 10/17/2024 18:02:50 Problems Name Problem SNOMED Code Status Onset Date Resolution Date Notes Provider Name and Address Organization Details Recorded Time Uncontrolled type 2 diabetes mellitus 937884227 Active Not Available [facility] 3 10:28:57 Gastroesophag eal reflux disease without esophagitis 691231503 Active 2022 KAYLEE BELLAMY, CONTROL SPECIALIST [address] [place], [address] , [facility] 3 11:07:13 Hyperlipidemi a 79479098 Active 2022 KAYLEE BELLAMY CONTROL SPECIALIST [address] [place], [address] , [facility] 3 11:07:16 Vitamin D deficiency 19923440 Active 2022 KAYLEE BELLAMY, CONTROL SPECIALIST [address] [place], [address] , [facility] 3 11:07:20 Hypertensive disorder 95484214 Active 2022 KAYLEE BELLAMY, CONTROL SPECIALIST [address] [place], [address] , [facility] 3 11:07:18 Diabetic peripheral neuropathy 807866797 Active 2022 KAYLEE BELLAMY, CONTROL SPECIALIST [address] [place], [address] , [facility] 3 11:07:11 Recurrent major depression 12950018 Active 2022 KAYLEE BELLAMY, CONTROL SPECIALIST [address] [place], [address] , [facility] 3 11:07:47 Generalized anxiety disorder 96281328 Active Not Available [facility] 4 11:36:48 Chronic systolic heart failure 935775499 Active Not Available [facility] 4 09:02:30 Secondary hyperaldoster onism 45900406 Active Not Available [facility] 4 13:42:15 Postural dizziness 170546212 Active 2024 KAYLEE LOPEZ DO [address] [place] [address], [address] , [facility] 5 10:06:52 Impairment of balance 076455146 Active 2024 KAYLEE LOPEZ DO [address] [place] [address], [address] , [facility] 5 10:07:03 Paresthesia of lower extremity 726161773 Active 2024 KAYLEE LOPEZ DO [address] [place] [address], [address] , [facility] 5 10:24:49 Problem Notes Documentation Provider Name and Address Organization Details Recorded Time Orthopedic Surgeon Consult Note : [facility] [address], [facility] [address]ZQPEYDBrenden VERAS (id #[id number], : 1955) [facility] [address] [place] [address] Encounter Summary - Progress Note Date Printed: 10/23/2024 Documents sent via fax will include the followingmessage: This fax may contain sensitive and confidential personal health information that is being sent for the sole use of the intended recipient. Unintended recipients are directed to securely destroy any materials received. You are hereby notified that the unauthorized disclosure or other unlawful use of this fax or any personal health information is prohibited. To the extent patient information contained in this fax is subject to 42 CFR Part 2, this regulation prohibits unauthorized disclosure of these records. If you received this fax in error, please visit [email or web address] to notify the sender and confirm that the information will be destroyed. If you do not have internet access, please call to notify the sender and confirm that the information will be destroyed. Thank you for your attention and cooperation. [ID:[id number]] Patient Brenden Veras (68yo, F) #[id number] 1955 Patient Demographics: Address [address] [facility] [address] [place] [address] Encounter Notes: Encounter Reason/DateNone recorded 10/17/2024 - 12:45PM - [facility] History of Present Illness10/17/24 Patient presents with pain about the lower ribcage after jamming herself into a laundry machine. Pain in left lower ribs. Some pain with deep inhalation, no numbness or tingling in the distal extremities. DOI: 10/13/24 Review of SystemsROS as noted in the HPI VitalsNone recorded Results/InterpretationsNone recorded Physical ExamTTP L ribs 10-12 on lateral sideNVI distallyChest rise and fall symmetrical Respirations unlabored No flail chest X-rays reviewed shows no fractures or dislocations. No osseous lesions. Lung leos and cardiac silhouette unremarkable. Procedure DocumentationNone recorded Assessment and Plan1.Rib pain on left sideStart methocarbamol to help with symptoms. Emphasize importance of deep breathing to prevent pneumonia and other pulmonary complications. Weightbearing and activities largely as tolerated. Follow-up with me in 4 to 6 weeks if symptoms persist. Return precautions discussed for worsening dyspnea on exertion, SOA, productive cough.R07.81: Pleurodynia methocarbamol 750 mg tablet - Take 1 tablet(s) every 8 hours by oral route. Qty: (21) tablet Refills: 0 Pharmacy: [facility] 591 Return to Office SUSU ALLISON PA-C for RECHECK at [facility] 1207 SB on 11/14/2024 at 01:00 PM KAYLEE BELLAMY APRN for RECHECK at [facility] SB on 12/25/2024 at 12:00 PM Patient Medical History: Allergies List Allergies not reviewed (last reviewed 09/20/2024) ACTOS, high criticality: Angioedema (Severe) METFORMIN: Vomiting cats Medications Reviewed Medications NameDate Source albuterol sulfate HFA 90 mcg/actuation aerosol inhalerInhale 2 puff(s) every 4 hours by inhalation route for 30 days, for wheezing.11/25/23 prescribed KAYLEE BELLAMY APRN allopurinoL 100 mg tabletTake 1 tablet(s) every day by oral route in the morning for 90 days.10/06/24 prescribed KAYLEE BELLAMY APRN atorvastatin 40 mg tabletTake 1 tablet(s) every day by oral route.12/07/23 entered Senait Beard cholecalciferol (vitamin D3) 1,250 mcg (50,000 unit) capsuleTake 1 capsule(s) every week by oral route for 90 days, for vitamin d def.01/14/24 prescribed KAYLEE BELLAMY APRN citalopram 40 mg tabletTake 1 tablet by mouth once daily09/29/24 renewed KAYLEE BELLAMY APRN clopidogreL 75 mg tabletTake 1 tablet(s) every day by oral route.12/07/23 entered Senait Beard ferrous sulfate 325 mg (65 mg iron) tabletTake 1 tablet(s) every day by oral route in the morning for 90 days.10/06/24 prescribed KAYLEE BELLAMY APRN furosemide 20 mg tabletTake 1 tablet(s) every day by oral route as directed.09/20/24 entered Lilia Baig gabapentin 300 mg capsuleTake 1 capsule by mouth once daily at [id number]/23/24 renewed KAYLEE BELLAMY APRN losartan 25 mg tabletTake 1 tablet(s) every day by oral route.03/07/24 entered KAYLEE BELLAMY APRN meclizine 12.5 mg tabletTake 1 tablet(s) 3 times a day by oral route as needed for 30 days. Internal Note:not taking (09/20/2024)08/16/24 prescribed KAYLEE BELLAMY APRN methocarbamoL 750 mg tabletTake 1 tablet(s) every 8 hours by oral route. Note:Do not take and drive or drink [id number]/22/25 prescribed SUSU ALLISON PA-C metoprolol succinate ER 25 mg tablet,extended release 24 hrTake 1 tablet(s) every day by oral route as directed.09/20/24 entered Lilia Baig pantoprazole 40 mg tablet,delayed releaseTake 1 tablet(s) twice a day by oral route as directed.09/20/24 entered Lilia Baig pen needle, diabetic 31 gauge x 5/16 Use as directed daily with cnasegc50/26/24 entered Senait Beard spironolactone 25 mg tabletTake 0.5 tablet(s) every day by oral route.02/21/24 entered Senait Beard Toujeo Max U-300 SoloStar 300 unit/mL (3 mL) subcutaneous insulin penInject 37 unit(s) every day by subcutaneous route for 30 days.08/10/24 prescribed KAYLEE BELLAMY APRN traZODone 50 mg tabletTake 1 tablet(s) every day by oral route at bedtime for 30 days, for insomnia.06/06/24 prescribed KAYLEE BELLAMY APRN Vitamin D3 25 mcg (1,000 unit) tabletTake 1 tablet(s) every day by oral route for 30 days.09/14/24 prescribed KAYLEE BELLAMY APRN Family HistoryFamily History not reviewed (last reviewed 09/20/2024) Sister - Rheumatoid arthritis - Diabetes mellitus - Dementia - Malignant tumor of breast Father - Diabetes mellitus Mother - Diabetes mellitus - Dementia Past Medical HistoryPast Medical History not reviewed (last reviewed 09/20/2024) Arthritis:Y Asthma:Y Diabetes:Y Heart Attack (IA):Y-11/29/23 High Cholesterol:Y Hypertension:Y Migraines:Y Neurological Problems:Y Vaccine HistoryReviewed Vaccines Vaccine Type Date Amt. Route Site [facility] Lot # Mfr. Exp. Date VIS VIS Given Phonograph Mechanic COVID-19 COVID-19, mRNA, LNP-S, PF, 100 mcg/0.5 mL dose (Moderna) 10/31/20 0.5 mL Intramuscular [id number] Moderna [employer] 04/11/21 COVID-19, mRNA, LNP-S, PF, 100 mcg/0.5 mL dose (Moderna) 10/02/20 0.5 mL Intramuscular [id number] Moderna [employer] 03/28/21 Hepatitis A Hep A, adult 06/15/18 1 ML Intramuscular [id number] [employer] and [employer] Inc. 02/03/19 Influenza influenza, high dose seasonal 06/06/24 0.5 mL Intramuscular Deltoid, Left [id number] Sanofi Pasteur 12/25/24 Inactivated Influenza 01/31/2021 06/06/24 Don Gonzalez influenza, high-dose, quadrivalent 04/23/23 0.7 mL Intramuscular Deltoid, Left [id number] Sanofi Pasteur 12/26/23 Inactivated Influenza 01/31/2021 04/23/23 Senait Beard, Termed influenza, seasonal, injectable, preservative free 06/15/18 influenza, injectable, quadrivalent, preservative free 06/15/18 0.5 mL Intramuscular [id number] Sanofi Pasteur 12/25/18 Pneumococcal Pneumococcal conjugate PCV20, polysaccharide [id number] conjugate, adjuvant, PF 01/21/23 0.5 mL Intramuscular Deltoid, Right [id number] Other infection control rn 03/28/24 Pneumococcal Conjugate 11/06/2022 01/21/23 Senait Beard, Termed pneumococcal conjugate PCV 13 04/12/17 0.5 mL Intramuscular [id number] Other infection control rn 07/19/18 Zoster zoster recombinant 03/07/24 0.5 mL Intramuscular Deltoid, Right [id number] [employer]axoSmithKline 10/16/25 Recombinant Zoster 08/01/2021 03/07/24 Senait Beard, Termed zoster recombinant 11/25/23 0.5 mL Intramuscular Deltoid, Right [id number] [employer]oSmith[employer]line 11/10/25 Recombinant Zoster 08/01/2021 11/25/23 Senait Beard, Termed Electronically Signed by: SUSU ALLISON PA-C, [facility] KAYLEE BELLAMY, CONTROL SPECIALIST [address] [place], [address], [facility] 10/23/2024 11:38:04 Procedures Surgical History Date Name Laterality Status Provider Name and Address Organization Details Recorded Time 03/07/20 Date of Last Mammogram completed Lilia [facility] 09/20/2024 08:46:08 02/21/20 TCM completed [facility] 02/18/2024 17:42:40 12/22/19 TCM completed [facility] 12/21/2023 21:43:15 02/20/20 OT Evaluation - Moderate complexity completed SUSANA BARRY JR, OTR/L, CHT [address] [place], [address], [facility] 02/19/2023 09:46:51 02/20/20 OT Therapeutic Exercise completed SUSANA BARRY JR, OTR/L, CHT [address] [place], [address], [facility] 02/19/2023 10:18:35 02/17/20 23 Op Note completed MICAH GARCIA MD [address] [place], [address], [facility] 02/16/2023 09:49:02 01/22/20 23 PAF Exam completed Debra Barrera [facility] 01/14/2023 12:15:11 Appendectomy completed Lilia [facility] 09/20/2024 08:45:29 procedure on heart completed Lilia [facility] 09/20/2024 08:45:39 biopsy of breast completed Lilia Baig [facility] 09/20/2024 08:45:55 Carpal Tunnel Surgery completed Tatianakaya Granados [facility] 09/20/2024 09:44:52 procedure on wrist completed Tatianakaya Granados [facility] 09/20/2024 09:44:12 procedure on elbow completed Tatianakaya Granados [facility] 09/20/2024 09:44:38 procedure on hand completed Tatianakaya Esteszel [facility] 09/20/2024 09:42:54 Shoulder Surgery completed Tatianakaya Granados [facility] 09/20/2024 09:43:38 Knee Surgery completed Tatianakaya Granados [facility] 09/20/2024 09:43:34 procedure on ankle completed Tatianakaya Esteszel [facility] 09/20/2024 09:43:46 release of trigger finger completed Tatianakaya Granados [facility] 09/20/2024 09:45:30 release of trigger finger completed Tatiana Rubielsie [facility] 09/20/2024 09:45:23 procedure on finger completed Tatiana Rubielsie [facility] 09/20/2024 09:45:58 procedure on hand completed Tatiana Rubiyamilkazel [facility] 09/20/2024 09:46:47 Imaging Results None recorded. Procedure Notes None recorded. Medical Equipment None Reported. Allergies Allergen ID Allergen Name Allergen Category Reaction Reaction Severity Criticality Documentation Date Start Date Code Code System Note Provider Name and Address Organization Details Recorded Time 740845 Actos medicatio n angioedem a severe high 07/09/20222022 79096 2 RxNorm KAYLEE BELLAMY, CONTROL SPECIALIST [address] [place], [address], [facility] 3 11:04:32 696095 metformin medicatio n vomiting Not available Not available 02/21/2024 6809 RxNorm Senait hernandes, [facility] 4 14:13:44 Medications Name Sig Start Date Stop Date Status Note LastModified by Organization Details LastModified Time atorvasta tin 40 mg tablet Take 1 tablet every day by oral route. active Not Available Not Available No t Available atorvasta tin 20 mg tablet Take 1 tablet by mouth once daily 12/06 completed Not Available Not Available Not Available donepezil 5 mg tablet Take 1 tablet every day by oral route at bedtime for 90 days, for memory. 03/07 completed stopped Not Available Not Available Not Available nabumeton e 750 mg tablet Take 1 tablet by mouth twice daily 12/06 completed Not Available Not Available Not Available citalopra m 40 mg tablet Take 1 tablet by mouth once daily 2024 active Not Available Not Available Not Avai lable trazodone 50 mg tablet Take 1 tablet every day by oral route at bedtime for 30 days, for insomnia . 2023 active Not Available Not Available Not Avai lable lisinopri l 20 mg tablet Take 1 tablet every day by oral route in the morning for 90 days, for hyperten noel. 12/06 completed Not Available Not Available Not Available glipizide 10 mg tablet Take 1 tablet by mouth twice daily 12/06 completed Not Available Not Available Not Available famotidin e 40 mg tablet Take 1 tablet every day by oral route for 30 days. 12/21 completed as needed Not Available Not Available Not Available Mirapex 0.5 mg tablet Take 1 tablet every day by oral route at bedtime for 30 days. 2022 completed Not Available Not Available Not Available meclizine 12.5 mg tablet Take 1 tablet 3 times a day by oral route as needed for 30 days. 2024 active not taking (09/21/19) Not Available Not Available Not Available clopidogr el 75 mg tablet Take 1 tablet every day by oral route. active Not Available Not Available No t Available allopurin ol 100 mg tablet Take 1 tablet every day by oral route in the morning for 90 days. 2024 active Not Available Not Available Not Avai lable aspirin 81 mg tablet,de layed release Take 1 tablet(s ) every day by oral route. 03/07 completed Not Available Not Available Not Available tramadol 50 mg tablet TAKE 1 TABL PO Q 4-6 HRS PRN FOR SEVERE POST SURGICAL PAIN 02/26 completed Not Available Not Available Not Available spironola ctone 25 mg tablet Take 0.5 tablets every day by oral route. active Not Available Not Available No t Available carvedilo l 3.125 mg tablet Take 1 tablet twice a day by oral route. 01/13 completed Not Available Not Available Not Available methocarb lorrie 750 mg tablet Take 1 tablet every 8 hours by oral route. 2024 active Not Available Not Available Not Avai lable pantopraz ole 40 mg tablet,de layed release Take 1 tablet twice a day by oral route as directed . active Not Available Not Available No t Available ferrous sulfate 325 mg (65 mg iron) tablet Take 1 tablet every day by oral route in the morning for 90 days. 2024 active Not Available Not Available Not Avai lable lisinopri l 10 mg tablet Take 1 tablet by mouth once daily for 30 days 11/24 completed Not Available Not Available Not Available losartan 25 mg tablet Take 1 tablet every day by oral route. active Not Available Not Available No t Available gabapenti n 300 mg capsule Take 1 capsule by mouth once daily at bedtime 2024 active Not Available Not Available Not Avai lable irbesarta n 75 mg tablet Take 0.5 tablets every day by oral route. 01/13 completed Not Available Not Available Not Available furosemid e 20 mg tablet Take 1 tablet every day by oral route as directed . active Not Available Not Available No t Available metoprolo l succinate ER 25 mg tablet,ex tended release 24 hr Take 1 tablet every day by oral route as directed . active Not Available Not Available No t Available ergocalci ferol (vitamin D2) 1,250 mcg (50,000 unit) capsule Take 1 capsule by mouth once a week 02/20 completed out of rx Not Available Not Available Not Available albuterol sulfate HFA 90 mcg/actua tion aerosol inhaler Inhale 2 puffs every 4 hours by inhalati on route for 30 days, for wheezing . 2023 active Not Available Not Available Not Avai lable ondansetr on 4 mg disintegr ating tablet Place 2 tablets twice a day by translin gual route for 7 days. 10/22 completed Not Available Not Available Not Available pen needle, diabetic 31 gauge x /16 Use as directed daily with insulin active Not Available Not Available No t Available Vitamin D3 25 mcg (1,000 unit) tablet Take 1 tablet every day by oral route for 30 days. 2024 active Not Available Not Available Not Avai lable lisinopri l 09/05 completed Medicati on Descript ion: lisinopr il; Route:or al; refills: 5; Quantity :0 tablet Not Available Not Available Not Available Celexa 09/05 completed Medicati on Descript ion: citalopr am; Route:or al; refills: 0; Quantity :0 Not Available Not Available Not Available cholecalc iferol (vitamin D3) 1,250 mcg (50,000 unit) capsule Take 1 capsule every week by oral route for 90 days, for vitamin d def. 2023 active Not Available Not Available Not Avai lable Lantus Solostar U-100 Insulin 100 unit/mL (3 mL) subcutane ous pen Inject 37 units every day by subcutan eous route at bedtime for 30 days. 08/10 completed Not Available Not Available Not Available Tradjenta 5 mg tablet Take 1 tablet every day by oral route. 09/05 completed Not Available Not Available Not Available Invokana 300 mg tablet Take 1 tablet every day by oral route. 09/05 completed Not Available Not Available Not Available Jardiance 10 mg tablet Take 1 tablet every day by oral route. 01/13 completed Not Available Not Available Not Available Toujeo Max U-300 SoloStar 300 unit/mL (3 mL) subcutane ous insulin pen Inject 45 units every day by subcutan eous route for 30 days. 2024 active Not Available Not Available Not Avai lable insulin glargine- yfgn (U-100) 100 unit/mL (3 mL) subcutane ous pen INJECT 37 UNITS SUBCUTAN EOUSLY ONCE DAILY AT BEDTIME 08/105 completed Not Available Not Available Not Available vitamin D3 1,250 mcg (50,000 unit)-vit diaz K2 200 mcg capsule Take 1 capsule every week by oral route. 04/23 completed Not Available Not Available Not Available Vitals None Recorded Social History Question Answer Notes LastModified by Organizat ion Details LastModified Time Tobacco Smoking Status Former Smoker Quit in 1991 SPENCER SHORT, CONTROL SPECIALIST [address] [place], [address], [facility] 09/05/2021 14:38:07 What Is Your Level Of Caffeine Consumption? Occasional Information not available 09/08/2021 Are You Deaf Or Do You Have Serious Difficulty Hearing? No Information not available 09/08/2021 When Did You Quit Smoking? 16+yearssincel larry Information not available 08/27/2023 What Was The Date Of Your Most Recent Tobacco Screening? 09/20/2024 [email or web address] Information not available 09/20/2024 What Is Your Current Pack Years? 10packyears Information not available 08/27/2023 Do You Use Your Seat Belt Or Car Seat Routinely? Yes Information not available 09/08/2021 How Much Tobacco Do You Smoke? No Information not available 08/27/2023 Do You Use Sunscreen Routinely? No Information not available 09/08/2021 Has Tobacco Cessation Counseling Been Provided? No Information not available 09/05/2021 How Many Years Have You Smoked Tobacco? 10 Information not available 09/05/2021 Have You Recently Traveled Abroad? No Information not available 09/08/2021 Sex: Unknown Functional Status Question Answer Note LastModified by Organizat ion Details LastModified Time Do you use any illicit or recreational drugs? No Information not available 09/08/2021 Do you or have you ever used any other forms of tobacco or nicotine? No Information not available 09/05/2021 What is your level of alcohol consumption? None Information not available 09/08/2021 Are you currently employed? Yes [email or web address] Information not available 09/20/2024 What is your occupation? [employer] Information not available 09/20/2024 What is your exercise level? None [email or web address] Information not available 09/08/2021 Mental Status None recorded. Family History Relationship Description Onset Age of this Age Resolved Age Notes LastModified by Organization Details LastModified Time Sister Rheumatoid arthritis [email or web address] Not available 09:26:33 Sister Diabetes mellitus [email or web address] Not available 09:26:55 Sister Dementia [email or web address] Not availabl e 09/20/2024 08:44:43 Sister Malignant tumor of breast [email or web address] Not available 2024 08:44:52 Father Diabetes mellitus [email or web address] Not available 09:26:55 Mother Diabetes mellitus [email or web address] Not available 09:26:55 Mother Dementia [email or web address] Not availabl e 09/20/2024 08:44:37 Medical History Condition Response Coronary Artery Disease N Gout N Atrial Fibrillation N Kidney Stones N Hyperthyroidism N Parkinson's Disease N Alzheimer's N Migraines Y Depression Y Glaucoma N Hypothyroidism N COPD N MRSA exposure N Difficulty Swallowing N Heart Attack (IA) Y Neurological Problems Y Diabetes Y Anxiety Disorder N Meniere's disease N Obesity N Arthritis Y Mental Disorder N Tuberculosis N Congestive Heart Failure (CHF) N Cancer N Diverticulitis N Stroke N Asthma Y Reflux/GERD Y High Cholesterol Y Liver Disease N Heart Disease N Pulmonary Embolism N Fibromyalgia N Hypertension Y Osteoporosis N Kidney Disease N Gynecological History Statement/Question Response # of Pregnancies 1 Date of Last Mammogram 03/07/2024 # of Births 1 Obstetrics History GPAL:G 1 P 1 0 0 0 Type Value Full Term 1 Total 1 Immunizations Vaccine Type Date Status Note Provider Nam e and Address Organization Details Recorded Time Influenza, split virus, trivalent, PF 8 completed More Collado [facility] 06/06/2024 15:04:37 Hep A, adult 8 completed More Collado [facility] 06/06/2024 15:04:37 Influenza, split virus, quadrivalent, PF [facility]:04:37 Pneumococcal conjugate PCV20, polysaccharide [id number] conjugate, adjuvant, PF 3 completed KAYLEE BELLAMY, CONTROL SPECIALIST [address] [place], [address], [facility] 01/22/2023 17:05:19 Influenza, high-dose, quadrivalent, PF 3 completed KAYLEE BELLAMY, CONTROL SPECIALIST [address] [place], [address], [facility] 04/26/2023 13:52:38 COVID-19, mRNA, LNP-S, PF, 100 mcg/0.5mL dose or 50 mcg/0.25mL dose 1 [facility] 15:04:36 COVID-19, mRNA, LNP-S, PF, 100 mcg/0.5mL dose or 50 mcg/0.25mL dose 1 [facility] 15:04:37 zoster recombinant 4 completed KAYLEE BELLAMY, CONTROL SPECIALIST [address] [place], [address], [facility] 11/29/2023 16:48:22 zoster recombinant 4 completed KAYLEE BELLAMY, CONTROL SPECIALIST [address] [place], [address], [facility] 03/08/2024 09:07:14 Influenza, high-dose, trivalent, PF 4 completed KAYLEE BELLAMY CONTROL SPECIALIST [address] [place], [address], [facility] 06/10/2024 13:46:23 Pneumococcal conjugate PCV 13 7 [facility] 15:04:37 Past Encounters Encounter ID Performer Location Encounter Start Date Encounter Closed Date Diagnosis/Indication Diagnosis SNOMED-CT Code Diagnosis ICD10 Code Diagnosis Note [id number] KAYLEE LOPEZ DO NEUROLOGY [facility]ED [address] [id number] 09/20/2024 09:23:58 09/21/2024 09:39:11 Postural dizziness 162850893 R42 She describes some vertiginou s symptoms that are provoked by movement of her head or walking. She also report a significan t amount of shortness of breath with minimal walking that exacerbate s her dizziness. These symptoms began after her heart attack last year. I would recommend a MRI brain to rule out any structural injury/str rohini around the time of her heart attack. If negative I do feel she might benefit from some PT/vestibu lar therapies. Impairment of balance 38 [id number] R26.89 She developed persistent imbalance and vertiginou s dizziness right after her heart attack last year. She has clinical findings of PN on exam today as well that contribute to her imbalance issues. Fall precaution s reviewed. Will consider formal PT after MRI results can be reviewed. Paresthesi a of lower extremity [id number] R20.2 On exam she has findings suggestive of PN. She is not reporting any significan t pain so interventi on not needed. She is a diabetic, her recent A1C was 10.1. [id number] JERMAN AMOS APRN BREAST SURGERY [address] [place] [address] 09/20/2024 08:38:11 09/20/2024 09:38:07 Family history of malignant neoplasm of breast in first degree relative [id number] Z80.3 Family history reviewed in detail including 3 generation pedigree. Genetic testing is not indicated by NCCN guidelines at this time, however this is a service available to any patient that desires it through our office. Patient is not interested at this time.After further review of family history and inclusion of this informatio n on updated cancer risk assessment , her lifetime risk for breast cancer has been determined to be 8.11% by Leticia page, V8. High risk management is not indicated and patient was reassured. Her last diagnostic mammogram and ultrasound resulted BI-RADS 2, will be due to repeat screening mammogram in February 2025. She has already been entered into the reminder system and will be notified when it is time to schedule. She may return to routine screening and routine care, but understand s that our office will be available if any breast problems or concerns arise in the future. She may see us on an as-needed basis. [id number] SUSU ALLISON PA-C [facility] CL[facility] [address] [place] [address] 10/17/2024 12:49:32 10/17/2024 14:08:36 Rib pain [id number] R07.81 Start methocarba mol to help with symptoms. Emphasize importance of deep breathing to prevent pneumonia and other pulmonary complicati ons. Weightbear ing and activities largely as tolerated. Follow-up with me in 4 to 6 weeks if symptoms persist. Return precaution s discussed for worsening dyspnea on exertion, SOA, productive cough. Health Concerns Section Related Observation LastModified by Organization Detai ls LastModified Time None Recorded Concern Status LastModified by Organization Details LastModified Time None Recorded Payers Encounter Date Sequence Insurance Name Policy Number Policy Camejo Covered Member ID Camejo Member ID Guarantor Name 10/17/2024 1 [employer] (MEDICARE REPLACEMENT/A DVANTAGE - PPO) Brenden Veras [id number] Brenden Veras Notes Date Note Type Note Provider Name and Address Organization Details Recorded Time 10/17/2024 text/html 10/17/24 Patient presents with pain about the lower ribcage after jamming herself into a laundry machine. Pain in left lower ribs. Some pain with deep inhalation, no numbness or tingling in the distal extremities. DOI: 10/13/24 SUSU ALLISON PA-C [address] [place], [address], [facility] 10/23/2024 10:54:18 OBGyn Episode No OBEpisode recorded.
--- OUTSIDE RECORDS SUMMARY | 2024-12-08 11:21 | XMS_ITS | Data Portability ---
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 Name Role Phone CASSI BELLAMY Primary Care Provider [phone] CASSI FRANKLIN Neurologist Assessment Encounter Date Assessment Date Assessment LastModified by Organization Details LastModified Time 08/16/2024 08/16/2024 lasix and metoprolol Not available 08/16/2024 12:35:49 Plan of Treatment Reminders Order Date Submit Date Provider Last Modified By Organization Details Last Modified Time Details Appointments RECHECK 2024 12:00P M CASSI BELLAMY COMPARISON SHOPPER Not available Not available Not available Lab uric acid, serum or plasma 2024 025 [facility], [address] [place] [address], [address], 09/14/2024 14:25:00 CBC w/ auto diff 2024 025 [facility], [address] [place] [address], [address], 09/14/2024 14:06:52 hemoglobi n A1C, fingersti ck 2024 025 [facility], [address] [place] [address], [address], 09/18/2024 10:59:02 CMP, serum or plasma 2024 025 [facility], [address] [place], [address], 09/14/2024 14:25:02 iron + total iron-bind ing capacity (TIBC), serum 2024 025 [facility], [address] [place] [address], [address], 09/14/2024 14:25:05 ferritin, serum or plasma 2024 025 [facility], [address] [place] [address], [address], 09/14/2024 14:25:[address] referral 2024 025 [email or web address] 1 Cassi Franklin DO, [address] [place], [address], 09/14/2024 12:43:24 breast center referral - see mamm in march, high risk, referral to high risk breast clinic rec. 2024 025 [email or web address] 1 Shavonne Sugar ROSENBERG, [address] [place] [address], [address], 09/15/2024 10:13:21 Procedures None recorded. Surgeries None recorded. Imaging MRI, brain, w/o contrast 2024 025 [email or web address] [facility] Rad[facility], [address] [place] [address], [address], 09/20/2024 12:23:38 XR, ankle, 3 or more view 2024 025 [facility], [address] [place] [address], [address], 09/14/2024 14:12:51 Medication Orders methocarb lorrie 750 mg tablet 2024 025 [facility], [address], [address], 10/17/2024 14:06:40 Vitamin D3 25 mcg (1,000 unit) tablet 2024 025 [email or web address] 1 [facility], [address], [address], 09/14/2024 12:43:24 meclizine 12.5 mg tablet 2024 025 levi [facility], [address], [address], 09/20/2024 09:40:03 Patient TargetsNo targets recorded. Patient Instructions Encounter Date Encounter Id Patient Instructions Last Modified By Organization Details Last Modified Time 09/20/2024 [id number] Spent a total of 30 minutes on the date of service in the following tasks: Preparing the chart Reviewing tests and other clinical notes Obtaining/reviewin g a separate history Performing a medically appropriate physical exam Counseling the patient/family/car egiver Referring and/or communicating with other healthcare professionals Documenting clinical information into the health record [email or web address] Not available 09/20/2024 09:29:54 Reason for Referral Neurologist Referral for Diz ziness and giddiness Referring Physician: Cassi Bellamy, Internal Medicine, Encounter Date: 09/14/2024 Breast Center Referral for A t high risk for malignant neoplasm of breast see mamm in march, high risk, referral to high risk breast clinic rec. Referring Physician: Cassi Bellamy, Internal Medicine, Encounter Date: 09/14/2024 Results Created Date Observation Date Name Description Value Unit Range Abnormal Flag Note LastModifiedBy Organization Detail LastModifiedTime 09/15/1909/14/2024 COMPL ETE BLOOD COUNT white blood cells 9.4 10*3/ uL 3.8-10 .8 normal Not Available [facility] [address] [place], [address], 09/14/2024 13:54:10 09/15/1909/14/2024 COMPL ETE BLOOD COUNT red blood cells 4.21 10*6/ uL 3.80-5 .20 normal Not Available [facility] [address] [place] [address], [address], 09/14/2024 13:54:10 09/15/19 25 09/14/2024 COMPL ETE BLOOD COUNT hemoglobin 9.0 g/dL 12.0-1 6.0 low Not Available [facility] [address] [place] [address], [address], 09/14/2024 13:54:10 09/15/19 25 09/14/2024 COMPL ETE BLOOD COUNT hematocrit 29.5 % 35.0-4 7.0 low Not Available [facility] [address] [place] [address], [address], 09/14/2024 13:54:10 09/15/19 25 09/14/2024 COMPL ETE BLOOD COUNT MCV 70 fL 80-100 low Not Available [facility] [address] [place] [address], [address], 09/14/2024 13:54:10 09/15/19 25 09/14/2024 COMPL ETE BLOOD COUNT MCH 21 pg 26-35 low Not Available [facility] [address] [place] [address], [address], 09/14/2024 13:54:10 09/15/19 25 09/14/2024 COMPL ETE BLOOD COUNT MCHC 30 g/dL 32-36 low Not Available [facility] [address] [place] [address], [address], 09/14/2024 13:54:10 09/15/19 25 09/14/2024 COMPL ETE BLOOD COUNT RDW 20.0 % 11.0-1 5.0 high Not Available [facility] [address] [place] [address], [address], 09/14/2024 13:54:10 09/15/19 25 09/14/2024 COMPL ETE BLOOD COUNT MPV 9.9 fL 6.2-10 .5 normal Not Available [facility] [address] [place] [address], [address], 09/14/2024 13:54:10 09/15/19 25 09/14/2024 COMPL ETE BLOOD COUNT platelet count 216 10*3/ uL 150-40 0 normal Not Available [facility] [address] [place] [address], [address], 09/14/2024 13:54:10 09/15/19 25 09/14/2024 COMPL ETE BLOOD COUNT neutrophil,a bsolute 7.3 10*3/ uL 1.6-8. 4 normal Not Available [facility] [address] [place] [address], [address], 09/14/2024 13:54:10 09/15/19 25 09/14/2024 COMPL ETE BLOOD COUNT lymphocyte,a bsolute 1.1 10*3/ uL 0.4-5. 1 normal Not Available [facility] [address] [place] [address], [address], 09/14/2024 13:54:10 09/15/19 25 09/14/2024 COMPL ETE BLOOD COUNT monocyte,abs olute 0.8 10*3/ uL 0.0-1. 2 normal Not Available [facility] [address] [place] [address], [address], 09/14/2024 13:54:10 09/15/19 25 09/14/2024 COMPL ETE BLOOD COUNT eosinophil,a bsolute 0.2 10*3/ uL 0.0-0. 8 normal Not Available [facility] [address] [place] [address], [address], 09/14/2024 13:54:10 09/15/19 25 09/14/2024 COMPL ETE BLOOD COUNT basophil,abs olute 0.1 10*3/ uL 0.0-0. 3 normal Smear revie wed to confi rm cell morph ology . Not Available [facility] [address] [place] [address], [address], 09/14/2024 13:54:10 09/15/19 25 09/14/2024 COMPL ETE BLOOD COUNT % neutrophils 78.0 % 42.0-7 8.0 normal Not Available [facility] [address] [place] [address], [address], 09/14/2024 13:54:10 09/15/19 25 09/14/2024 COMPL ETE BLOOD COUNT % lymphocytes 11.2 % 11.0-4 7.0 normal Not Available [facility] [address] [place] [address], [address], 09/14/2024 13:54:10 09/15/19 25 09/14/2024 COMPL ETE BLOOD COUNT % monocytes 8.1 % 0.0-11 .0 normal Not Available [facility] [address] [place] [address], [address], 09/14/2024 13:54:10 09/15/19 25 09/14/2024 COMPL ETE BLOOD COUNT % eosinophils 1.7 % 0.0-7. 0 normal Not Available [facility] [address] [place] [address], [address], 09/14/2024 13:54:10 09/15/19 25 09/14/2024 COMPL ETE BLOOD COUNT % basophils 1.0 % 0.0-3. 0 normal Not Available [facility] [address] [place] [address], [address], 09/14/2024 13:54:10 09/15/19 25 09/14/2024 COMPL ETE BLOOD COUNT nucleated red cells 0.0 % 0.0-0. 9 normal Not Available [facility] [address] [place] [address], [address], 09/14/2024 13:54:10 09/15/19 09/14/2024 COMPL ETE BLOOD COUNT nucleated RBCs, absolute 0.00 10*3/ uL not estab. normal Not Available [facility] [address] [place] [address], [address], 09/14/2024 13:54:10 09/15/19 25 09/14/2024 MORPH OLOGY platelet morphology NORMAL normal Not Available [facility] [address] [place] [address], [address], 09/14/2024 13:54:12 09/15/19 25 09/14/2024 MORPH OLOGY microcytosis SLIGHT abnormal Not Available [facility] [address] [place] [address], [address], 09/14/2024 13:54:12 09/15/19 25 09/14/2024 MORPH OLOGY hypochromasi a SLIGHT abnormal Not Available [facility] [address] [place] [address], [address], 09/14/2024 13:54:12 09/15/19 25 09/14/2024 MORPH OLOGY polychromasi a SLIGHT abnormal Not Available [facility] [address] [place] [address], [address], 09/14/2024 13:54:12 09/15/19 25 09/14/2024 MORPH OLOGY ovalocytes SLIGHT abnormal Not Available [facility] [address] [place] [address], [address], 09/14/2024 13:54:12 09/15/19 25 09/14/2024 MORPH OLOGY stomatocytes SLIGHT abnormal Not Available [facility] [address] [place] [address], [address], 09/14/2024 13:54:12 09/15/19 25 09/14/2024 MORPH OLOGY target cells SLIGHT abnormal Not Available [facility] [address] [place] [address], [address], 09/14/2024 13:54:12 09/15/19 25 09/14/2024 MORPH OLOGY schistocytes SLIGHT abnormal Not Available [facility] [address] [place] [address], [address], 09/14/2024 13:54:12 09/15/19 25 09/14/2024 URIC ACID uric acid 7.4 mg/dL 2.4-5. 7 high Refer ence range s are based on [facility] norms and do not neces huma velasquez late with treat ment targe ts. In patie nts with an estab lishe d diagn osis of gout under going Urate Lower ing Thera py (ULT) , the 2011 [facility] of Rheum atolo gy Guid marguerite s for Manag ement of Gout recom mend a targe t uric acid level of < 6 mg/dL in all patie nts, or lower in certa in circu mstan jayson. Arthr itis Care and Resea [facility] Vol 64 No 10, 2011 [facility]acio [facility] of Rheum atolo gy ----- ----- ----- ----- ----- ----- ----- ----- ----- ----- ----- ---- Not Available [facility] [address] [place] [address], [address], 09/14/2024 14:25:00 09/15/19 25 09/14/2024 COMP. METAB OLIC PANEL glucose 142 mg/dL 74-100 high Not Available [facility] [address] [place] [address], [address], 09/14/2024 14:25:02 09/15/19 25 09/14/2024 COMP. METAB OLIC PANEL blood urea nitrogen 33 mg/dL 6-20 high Not Available [facility] [address] [place], [address], 09/14/2024 14:25:02 09/15/19 25 09/14/2024 COMP. METAB OLIC PANEL creatinine 1.44 mg/dL 0.50-0 .95 high Not Available [facility] [address] [place] [address], [address], 09/14/2024 14:25:02 09/15/19 25 09/14/2024 COMP. METAB OLIC PANEL BUN/creatini ne ratio 23 (calc ) 10-20 high Not Available [facility] [address] [place] [address], [address], 09/14/2024 14:25:02 09/15/19 25 09/14/2024 COMP. METAB OLIC PANEL sodium 138 mmol/ L 136-14 5 normal Not Available [facility] [address] [place] [address], [address], 09/14/2024 14:25:02 09/15/19 25 09/14/2024 COMP. METAB OLIC PANEL potassium 4.5 mmol/ L 3.4-5. 0 normal Not Available [facility] [address] [place] [address], [address], 09/14/2024 14:25:02 09/15/19 25 09/14/2024 COMP. METAB OLIC PANEL chloride 101 mmol/ L 98-107 normal Not Available [facility] [address] [place] [address], [address], 09/14/2024 14:25:02 09/15/19 25 09/14/2024 COMP. METAB OLIC PANEL carbon dioxide 24 mmol/ L 22-31 normal Not Available [facility] [address] [place] [address], [address], 09/14/2024 14:25:02 09/15/19 25 09/14/2024 COMP. METAB OLIC PANEL anion gap 13 (calc ) 7-25 normal Not Available [facility] [address] [place] [address], [address], 09/14/2024 14:25:02 09/15/19 25 09/14/2024 COMP. METAB OLIC PANEL calcium 10.0 mg/dL 8.6-10 .2 normal Not Available [facility] [address] [place] [address], [address], 09/14/2024 14:25:02 09/15/19 25 09/14/2024 COMP. METAB OLIC PANEL total protein 7.3 g/dL 6.4-8. 3 normal Not Available [facility] [address] [place] [address], [address], 09/14/2024 14:25:02 09/15/19 25 09/14/2024 COMP. METAB OLIC PANEL albumin 4.0 g/dL 3.5-5. 2 normal Not Available [facility] [address] [place] [address], [address], 09/14/2024 14:25:02 09/15/19 25 09/14/2024 COMP. METAB OLIC PANEL globulin 3.3 1.5-4. 5 normal Not Available [facility] [address] [place] [address], [address], 09/14/2024 14:25:02 09/15/19 25 09/14/2024 COMP. METAB OLIC PANEL albumin/glob ulin ratio 1.2 (calc ) 1.1-2. 5 normal Not Available [facility] [address] [place] [address], [address], 09/14/2024 14:25:02 09/15/19 25 09/14/2024 COMP. METAB OLIC PANEL bilirubin, total 0.5 mg/dL 0.1-1. 2 normal Not Available [facility] [address] [place] [address], [address], 09/14/2024 14:25:02 09/15/19 25 09/14/2024 COMP. METAB OLIC PANEL alkaline phosphatase 95 U/L 30-121 normal Not Available [facility] [address] [place] [address], [address], 09/14/2024 14:25:02 09/15/19 25 09/14/2024 COMP. METAB OLIC PANEL AST 23 U/L 0-32 normal Not Available [facility] [address] [place], [address], 09/14/2024 14:25:02 09/15/19 25 09/14/2024 COMP. METAB OLIC PANEL ALT 34 U/L 0-33 high Not Available [facility] [address] [place], [address], 09/14/2024 14:25:02 09/15/19 25 09/14/2024 COMP. METAB OLIC PANEL GFR 40 >= 60 abnormal NOT E New calcu latio n for GFR (CKD- EPI 2020) is formu lated witho ut race adjus tment facto rs at the recom menda tion of the [facility]oyt and [place] ty of Nephr ology . This calcu latio n has not been valid ated in pregn ant women . For pedia tric patie nts refer to https ://angella dennis.estuardo chris/salome hartmann s/JOSE ANTONIO QI/gf r_cal culat orPed Not Available [facility] [address] [place] [address], [address], 09/14/2024 14:25:02 09/15/19 25 09/14/2024 DONAL TIN ferritin 13 NG/mL 13-157 normal Not Available [facility] [address] [place], [address], 09/14/2024 14:25:03 09/15/19 25 09/14/2024 IRON PANEL -TOTA L AND TIBC iron 31 ug/dL 37-145 low Not Available [facility] [address] [place], [address], 09/14/2024 14:25:05 09/15/19 25 09/14/2024 IRON PANEL -TOTA L AND TIBC total iron binding cap. 426 ug/dL _(alessia c) 250-45 0 normal Not Available [facility] [address] [place] [address], [address], 09/14/2024 14:25:05 09/15/19 25 09/14/2024 IRON PANEL -TOTA L AND TIBC unsat.iron binding cap. 395 ug/dL 112-34 7 high Not Available [facility] [address] [place] [address], [address], 09/14/2024 14:25:05 09/15/19 25 09/14/2024 IRON PANEL -TOTA L AND TIBC % saturation 7 %_(ca lc) 15-50 low Not Available [facility] [address] [place] [address], [address], 09/14/2024 14:25:05 09/15/19 25 09/14/2024 hemog lobin A1C, finge rstic k hemoglobin A1C % 10.1 % 4.0 - 5.6 Not Available [facility] [address] [place] [address], [address], 09/14/2024 12:33:37 07/18/19 25 07/18/2024 imagi ng inter preta tion No observ ation record ed. Not Available 2024 09:49:41 07/18/19 25 07/18/2024 imagi ng inter preta tion No observ ation record ed. Not Available 2024 09:49:41 07/18/19 25 07/18/2024 imagi ng inter preta tion No observ ation record ed. [facility] [address], [place], [address], 08/21/2024 09:49:41 07/25/19 25 07/18/2024 US, doppl er echoc ardio gram, w/ color flow No observ ation record ed. [facility] [address], [place], [place], [address], 08/21/2024 09:49:41 09/15/19 25 09/14/2024 XR, ankle , 3 or more view [address] [address] Patijohn t Name: ANTONIO wilson : 7 Patijohn t 9 Orderi ng Provid er: PARAM BELLAMY EXAM DATE: 2024 EXAM: XR RT ANKLE COMPLE TE COMPAR DARCI: None. HISTOR Y: Right ankle pain. FINDIN GS: The bones of the ankle are normal in alignm ent. No acute fractu re is seen. There is prior fixati on of a bimall eolar fractu re. There is mild spurri ng along the fibula r tip and medial malleo lar tip. The ankle mortis e is congru ent. There is mild to modera te enthes opathi c change about the calcan eus. IMPRES PAVAN: 1. There are mild degene rative change s in the right ankle. Interp reted By: Cee byrnes MD Electr onical ly Signed By: Cee byrnes MD on 025 2:07 PM [facility] [address] [place] [address], [place], [address], 09/22/2024 16:39:22 09/26/19 25 09/22/2024 MRI, brain , w/o contr [facility] [address] [place] [address], [place] [address] Patijohn t Name: ANTONIO wilson : 957 Patijohn t 9 Orderi ng Provid er: PARAM FRANKLIN EXAM DATE: 2024 EXAM: MR BRAIN W/O [...] ntricu lar white matter change s. The ncaa compliance internship al caroti d and basila r flow-v oids are normal . There is no mucosa l thicke guillermo in the parana sandra sinuse s. The mastoi d air cells are clear. IMPRES PAVAN: 1. There is mild to modera te diffus e cerebr al atroph y and white matter change s in the brain. Interp reted By: Cee byrnes MD Electr onical ly Signed By: Cee byrnes MD on 025 7:07 AM [email or web address] [facility] [address] [place], [address], 09/25/2024 08:28:49 10/18/19 25 10/17/2024 XR, ribs, unila teral , 3 or more view [facility] [address] [place] [address] Efraín wilson Name: ANTONIO wilson : 957 Patijohn t 9 Orderi ng Provid er: AJ Rodriguez EXAM DATE: 2024 EXAM: XR LT [...] or focal abnorm ality is seen. IMPRES PAVAN: Normal radiog raphs of the chest and left ribs Interp reted By: Tono Velazquez MD Electr onical ly Signed By: Tono Velazquez MD on 025 1:12 PM [email or web address] [facility] [place] [address], [place], [address], 10/17/2024 18:02:50 Result Notes Documentation Provider Name and Address Organization Details Recorded Time Xr, Ankle, 3 Or More View : [id number] [place] [address] Patient Name: BRENDEN VERAS Patient : 1955 Patient Ordering Provider: CASSI BELLAMY EXAM DATE: 09/14/2024 EXAM: XR RT ANKLE COMPLETE COMPARISON: None. HISTORY: Right ankle pain. FINDINGS: The bones of the ankle are normal in alignment. No acute fracture is seen. There is prior fixation of a bimalleolar fracture. There is mild spurring along the fibular tip and medial malleolar tip. The ankle mortise is congruent. There is mild to moderate enthesopathic change about the calcaneus. IMPRESSION: 1. There are mild degenerative changes in the right ankle. Interpreted By: Misha Mcbride MD I BELLAMY, COMPARISON SHOPPER [address] [place], [address], [facility] 09/22/2024 16:39:22 Mri, Brain, W/o Contrast : [address] [place] [address] Patient Name: BRENDEN VERAS Patient : 1955 Patient Ordering Provider: CASSI FRANKLIN EXAM DATE: 09/22/2024 EXAM: MR BRAIN W/O CONTRAST HISTORY: 68-year-old female with unsteady gait and shortness of breath. COMPARISON: None. FINDINGS: The ventricles are symmetric, but mildly to moderately enlarged. There is no mass, mass effect, or midline shift. There is no abnormal extra-axial fluid, intracranial hemorrhage, or infarction. The diffusion weighted sequences are normal. There are mild to moderate periventricular white matter changes. The internal carotid and basilar flow-voids are normal. There is no mucosal thickening in the paranasal sinuses. The mastoid air cells are clear. IMPRESSION: 1. There is mild to moderate diffuse cerebral atrophy and white matter changes in the brain. Interpreted By: Misha Mcbride MD [facility] 09/25/2024 08:28:49 Xr, Ribs, Unilateral, 3 Or More View : [facility] [place] [address] [address] Patient Name: BRENDEN VERAS Patient : 1955 [...] left ribs Interpreted By: Tono Velazquez MD ALLISON PA-C [address] [place], [address] [place] [address] 10/17/2024 18:02:50 Problems Name Problem SNOMED Code Status Onset Date Resolution Date Notes Provider Name and Address Organization Details Recorded Time Uncontrolled type 2 diabetes mellitus 703176082 Active Not Available [facility] 3 10:28:57 Gastroesophag eal reflux disease without esophagitis 132546406 Active 2022 CASSI BELLAMY APRN [address] [place], [address] , [facility] 3 11:07:13 Hyperlipidemi a 42783161 Active 2022 CASSI BELLAMY APRN [address] [place], [address] , [facility] 3 11:07:16 Vitamin D deficiency 63050965 Active 2022 CASSI BELLAMY, COMPARISON SHOPPER [address] [place], [address] , [facility] 3 11:07:20 Hypertensive disorder 62806216 Active 2022 CASSI BELLAMY, COMPARISON SHOPPER [address] [place], [address] , [facility] 3 11:07:18 Diabetic peripheral neuropathy 768081870 Active 2022 CASSI BELLAMY, COMPARISON SHOPPER [address] [place], [address] , [facility] 3 11:07:11 Recurrent major depression 33332594 Active 2022 CASSI BELLAMY, COMPARISON SHOPPER [address] [place], [address] , [facility] 3 11:07:47 Generalized anxiety disorder 93733919 Active Not Available [facility] 4 11:36:48 Chronic systolic heart failure 102220642 Active Not Available [facility] 4 09:02:30 Secondary hyperaldoster onism 81370111 Active Not Available [facility] 4 13:42:15 Postural dizziness 803877675 Active 2024 CASSI FRANKLIN DO [address] [place], [address] , [facility] 5 10:06:52 Impairment of balance 849553900 Active 2024 CASSI FRANKLIN DO [address] [place], [address] , [facility] 5 10:07:03 Paresthesia of lower extremity 643151255 Active 2024 CASSI FRANKLIN DO [address] [place], [address] , [facility] 5 10:24:49 Problem Notes Documentation Provider Name and Address Organization Details Recorded Time Breast Center Consult Note : [facility] [address] [facility] [address]QYHZNP, Lucinda S (id #[id number], : 1955) [facility] [address] [place] [address] Date: 09/20/2024RE: Brenden Veras, : 1955, PT ID #[id number] Todd APRN, I would like to thank you for referring Brenden Veras to our practice for consultation and evaluation. I have enclosed a copy of the office evaluation for your records. Sincerely, Electronically Signed by: SHAVONNE AMOS APRN, NICOLEEncounter Reason/DateNone recorded 09/20/2024 - 08:30AM - BREAST SURGERY SB History of Present IllnessBrenden Veras is a 68 yo female, new to our office, referred by Cassi Bellamy APRN for breast cancer risk evaluation. Her family history is remarkable for breast cancer in her maternal half-sister at age 64. There are many cancers on her father's side, but this history is very limited and most of these primary cancers are unknown. Her personal lifetime risk of breast cancer was estimated to be 20% at the time of her last mammogram. More detailed cancer risk assessment performed upon arrival today to include breast density and complete family pedigree, showslifetime breast cancer risk of 8.11% by nathan Bloom. Brenden is a who underwent menarche at age 13 and menopause at age 51. She retains uterus and ovaries. She used OCPs in the past for about 12 years, has never taken any HRT. She has had one benign breast biopsy with subsequent excisional biopsy of cysts on the right breast over 20 years ago. She has been being followed every 6 months for the last several years due to BiRADS 3 findings on the left breast. Her last mammogram was a bilateral diagnostic with left ultrasound in 02/2024, resulted BiRADS 2. She has been cleared to return to routine screening. She has never had a breast MRI. She performs occasional home self breast exams, denies any new or concerning findings.Review of Systems Patient reportsarthralgias/joint pain. She reportsdepression and anxiety. Physical ExamRight Lymphatics:Supraclavicular normal. Axillary normal. Right Breast:Skin changes normal. Nipple normal. Masses no palpable masses. Tenderness nontender to palpation. Scar no scars. Left Lymphatics:Supraclavicular normal. Axillary normal. Left Breast:Skin changes normal. Nipple normal. Masses no palpable masses. Tenderness nontender. Scar no scars.Procedure DocumentationNone recordedAssessment/Plan1. Family history of malignant neoplasm of breast in first degree relative-Family history reviewed in detail including 3 generation pedigree. Genetic testing is not indicated by NCCN guidelines at this time, however this is a service available to any patient that desires it through our office. Patient is not interested at this time.After further review of family history and inclusion of this information on updated cancer risk assessment, her lifetime risk for breast cancer has been determined to be 8.11% by Nathan Bloom. High risk management is not indicated and patient was reassured. Her last diagnostic mammogram and ultrasound resulted BI-RADS 2, will be due to repeat screening mammogram in February 2025. She has already been entered into the reminder system and will be notified when it is time to schedule. She may return to routine screening and routine care, but understands that our office will be available if any breast problems or concerns arise in the future. She may see us on an as-needed basis.Z80.3: Family history of malignant neoplasm of breast Discussion NotesSpent a total of 30 minutes on the date of service in the following tasks: Preparing the chart Reviewing tests and other clinical notes Obtaining/reviewing a separate history Performing a medically appropriate physical exam Counseling the patient/family/caregiver Referring and/or communicating with other healthcare professionals Documenting clinical information into the health record Return to Office CASSI BELLAMY APRN for RECHECK at INTERNAL [facility]ICINE SB on 12/25/2024 at 12:00 PM CASSI BELLAMY APRN [address] [place] [address], [address], [facility] 09/20/2024 17:07:58 Neurologist Consult Note : [address] [address]METHNZ, Lucinda S (id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 available 2024 08:44:52 Father Diabetes mellitus [email or web address] Not available 09:26:55 Mother Diabetes mellitus [email or web address] Not available 09:26:55 Mother Dementia [email or web address] Not availabl e 09/20/2024 08:44:37 Medical History Condition Response Coronary Artery Disease N Gout N Atrial Fibrillation N Kidney Stones N Hyperthyroidism N Parkinson's Disease N Alzheimer's N Migraines Y Depression Y COPD N Hypothyroidism N Glaucoma N MRSA exposure N Difficulty Swallowing N Heart Attack (NM) Y Neurological Problems Y Anxiety Disorder N Meniere's disease N Diabetes Y Obesity N Arthritis Y Mental Disorder N Tuberculosis N Congestive Heart Failure (CHF) N Cancer N Stroke N Diverticulitis N Asthma Y Reflux/GERD Y High Cholesterol [...] split virus, trivalent, PF 8 [facility] 15:04:37 Hep A, adult 8 completed [facility]24 15:04:37 Influenza, split virus, quadrivalent, PF 8 completed [facility] 06/06/2024 15:04:37 Pneumococcal conjugate PCV20, polysaccharide TDM488 conjugate, adjuvant, PF 3 completed CASSI BELLAMY COMPARISON SHOPPER [address] [place], [address], [facility] 01/22/2023 17:05:19 Influenza, high-dose, quadrivalent, PF 3 completed CASSI BELLAMY COMPARISON SHOPPER [address] [place], [address], [facility] 04/26/2023 13:52:38 COVID-19, mRNA, LNP-S, PF, 100 mcg/0.5mL dose or 50 mcg/0.25mL dose 1 completed [facility] 06/06/2024 15:04:36 COVID-19, mRNA, LNP-S, PF, 100 mcg/0.5mL dose or 50 mcg/0.25mL dose 1 completed [facility] 06/06/2024 15:04:37 zoster recombinant 4 completed CASSI BELLAMY APRN [address] [place], [address], [facility] 11/29/2023 16:48:22 zoster recombinant 4 completed CASSI BELLAMY APRN [address] [place], [address], [facility] 03/08/2024 09:07:14 Influenza, high-dose, trivalent, PF 4 completed CASSI BELLAMY APRN [address] [place], [address], [facility] 06/10/2024 13:46:23 Pneumococcal conjugate PCV 13 7 completed [facility] 06/06/2024 15:04:37 Past Encounters Encounter ID Performer Location Encounter Start Date Encounter Closed Date Diagnosis/Indication Diagnosis SNOMED-CT Code Diagnosis ICD10 Code Diagnosis Note [id number] CASSI BELLAMY APRN [facility] [address] [place] [address] 09/05/2021 13:59:03 09/08/2021 08:29:56 Type 2 diabetes mellitus without complication 396650058 E11.9 she cannot afford these orals on her current insurance plan. She has some insulin she already bought. Suggest 10 units daily of that and stretch until she gets better insurance and then we will see what orals she can get on the new plan. Essential hypertension 40254455 I10 well controlled . Hyperlipidemia 08870148 E78.5 stable. Osteoarthritis 059272348 M19.90 stable. [id number] [place] [address] [place] [id number] 12/03/2021 10:22:44 12/04/2021 11:56:52 Type 2 diabetes mellitus without complication 739674032 E11.9 she cannot afford these orals on her current insurance plan. She has some insulin she already bought. Suggest 15 units daily of that and we will try ordering that through her insurance and see if there is any improvemen t Adult heal th examination 263413143 Z00.00 This is her first Medicare exam Type 2 vianney betes mellitus 38416399 E11.9 Nausea and vomiting 1693 1999 R11.2 Hyperlipidemia 89717018 E78.5 stable. Depressive disorder 3548 9007 F32.A Stable Hypertensive disorder 38 195785 I10 Stable [id number] CASSI BELLAMYSHAKIRA [facility] [place] [address] 03/26/2022 11:19:39 03/26/2022 13:22:19 Type 2 diabetes mellitus without complication 128585167 E11.9 elevated levels. continue current interventi ons, insulin at 20 units daily. Vitamin D deficiency 347 62935 E55.9 needs renewal of med today. Gastroesop hageal reflux disease without esophagitis 224885619 K21.9 add pepsic daily and see if this improves. Pain in both feet 484410 7355 0029738 M79.671 M79.672 needs to see podiatry for evaluation . Neuropathy 916246773 G62 .9 having alot of trouble with pain and tingling. try gabapenitn . Hyperlipidemia 00349915 E78.5 stable. continue statin, no side effects currently. Hypertensive disorder 38 919972 I10 Stable continue current interventi ons. [id number] CASSI BELLAMY APRN [facility] [address] [place] [id number] 07/09/2022 10:28:37 07/20/2022 08:31:41 Vitamin D deficiency 44502659 E55.9 needs renewal of med today. Gastroesop hageal reflux disease without esophagitis 542476157 K21.9 add pepsic daily and see if this improves. Pain in both feet 084605 9095 2498216 M79.671 M79.672 needs to see podiatry for evaluation . Neuropathy 231985396 G62 .9 having alot of trouble with pain and tingling. try gabapenitn . Hyperlipidemia 50582465 E78.5 stable. continue statin, no side effects currently. Hypertensive disorder 38 937895 I10 Stable continue current interventi ons. Peripheral neuropathy due to type 2 diabetes mellitus 0449754691 107 E11.42 increase to 25 units. [id number] CASSI BELLAMY APRN [facility] [address] [place] [id number] 10/22/2022 10:16:51 10/27/2022 13:28:45 Hypertensive disorder 81645408 I10 Stable continue current interventi ons. Vitamin D deficiency 347 99191 E55.9 needs renewal of med today. Uncontroll ed type 2 diabetes mellitus 569349020 E11.65 elevated levels. continue current interventi ons, insulin at 30 and increase to 35 units daily. Hyperlipidemia 04863705 E78.5 stable. continue statin, no side effects currently. Gastroesop hageal reflux disease without esophagitis 895000856 K21.9 add pepsic daily and see if this improves. Diabetic p eripheral neuropathy 268832744 E11.40 on gabapentin , improved with slightly improved A1C numbers. Recurrent major depression 74290811 F33.9 stable at this time, on citalopram . [id number] [place] [address] [place] [id number] 01/21/2023 10:55:44 01/27/2023 07:52:58 Adult health examination 647489016 Z00.00 Active immunization 3387 9002 Z23 Has patient had Hep B vaccine? No record in chart Has patient had Shingles vaccine? no record in chartPrevn ar13: 04/12/2017 Covid x 2 : Bivalent booster not included.I nfluenza vaccine: 06/15/2018 Pain of left breast 1010 843029 N64.4 pain in the L breast area. Dupuytren' s contracture of finger 421060860 M72.0 send to hand for evaluation . Uncontroll ed type 2 diabetes mellitus 494764272 E11.65 elevated levels. continue current interventi ons, insulin at 35 units daily. Diabetic p eripheral neuropathy 244551681 E11.40 on gabapentin , improved with slightly improved A1C numbers. Hypertensive disorder 38 888900 I10 Stable continue current interventi ons. Vitamin D deficiency 347 24650 E55.9 needs renewal of med today. Hyperlipidemia 33331261 E78.5 stable. continue statin, no side effects currently. Gastroesop hageal reflux disease without esophagitis 762324973 K21.9 add pepsic daily and see if this improves. Recurrent major depression 41873729 F33.9 stable at this time, on citalopram . 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 [id number] MICAH GARCIA MD SURGERY SCHEDULE [address] [place] [address] 02/16/2023 08:08:42 02/16/2023 08:09:45 [id number] MICAH GARCIA MD ORTHOPEDI [facility] [address] [address] 02/26/2023 08:18:16 02/26/2023 08:33:15 Acquired trigger finger 0060908 M65.30 10 days s/p trigger finger release of bilateral LF.Recomme nded in 2 weeks that patient can return to work full use 03/14/2023. Until then no lifting more than 5 pounds no repetitive gripping. [id number] SUSANA BARRY JR, OTR/L, CHT PHYSICAL THERAPY / HAND THERAPY [facility] [address] [place] [address] 02/19/2023 09:40:18 02/22/2023 09:00:41 Trigger finger of right hand 2886622452 8291382 M65.30 Trigger fi nger of left hand 3600433538 6268256 M65.30 [id number] CASSI BELLAMY APRN [facility] [address] [place] [id number] 04/23/2023 11:23:11 04/30/2023 09:18:11 Administration of influenza vaccine 35698738 Z23 Uncontroll ed type 2 diabetes mellitus 720783774 E11.65 elevated levels. continue current interventi ons, insulin at 35 units daily. Primary insomnia 7863982 F51.01 has used mirapex in past mainly to help with leg activity. Dupuytren' s contracture of finger 489685598 M72.0 working with hand. Diabetic p eripheral neuropathy 859695796 E11.40 on gabapentin , improved with slightly improved A1C numbers. Hypertensive disorder 38 517325 I10 Stable continue current interventi ons. Hyperlipidemia 55731383 E78.5 stable. continue statin, no side effects currently. Gastroesop hageal reflux disease without esophagitis 853468623 K21.9 add pepsic daily and see if this improves. Recurrent major depression 82062338 F33.9 stable at this time, on citalopram . [id number] CASSI BELLAMY APRN [facility] [address] [place] [address] 08/26/2023 11:28:11 08/30/2023 11:04:46 Uncontrolled type 2 diabetes mellitus 410277169 E11.65 elevated levels. continue current interventi ons, insulin at 37 units daily. Abnormal f indings on diagnostic imaging of breast 815676905 R92.8 6 months Recheck of some suspicious areas on her breast. Diabetic p eripheral neuropathy 995446272 E11.40 Having some worsening symptoms but the gabapentin does help. Continue current interventi ons. Generalize d anxiety disorder 53543384 F33.9 Stable at this time. Continue current interventi ons. Primary insomnia 0794780 F51.01 has used mirapex in past mainly to help with leg activity. Hypertensive disorder 38 707689 I10 Stable continue current interventi ons. Hyperlipidemia 76695572 E78.5 stable. continue statin, no side effects currently. Gastroesop hageal reflux disease without esophagitis 343187821 K21.9 add pepsic daily and see if this improves. Recurrent major depression 50451898 F33.9 stable at this time, on citalopram . [id number] CASSI BELLAMY APRN [facility] [address] [place] [address] 11/25/2023 10:16:57 12/03/2023 16:12:50 Uncontrolled type 2 diabetes mellitus 309140387 E11.65 elevated levels. continue current interventi ons, insulin at 37 units daily. Hypertensive disorder 38 980921 I10 Stable continue current interventi ons. Wheezing 23639041 R06.2 add inhaler. Active or passive immunization 853068840 Z23 Diabetic p eripheral neuropathy 242295429 E11.40 Having some worsening symptoms but the gabapentin does help. Continue current interventi ons. Generalize d anxiety disorder 61928402 F33.9 Stable at this time. Continue current interventi ons. Primary insomnia 5115343 F51.01 gabapentin helps with this. Hyperlipidemia 09530051 E78.5 stable. continue statin, no side effects currently. Gastroesop hageal reflux disease without esophagitis 518892446 K21.9 add pepsic daily and see if this improves. Recurrent major depression 31354859 F33.9 stable at this time, on citalopram . [id number] CASSI BELLAMY APRN [facility] [address] [place] [address] 12/07/2023 14:21:33 12/13/2023 10:29:38 Uncontrolled type 2 diabetes mellitus 235680052 E11.65 follow new orders. History of placement of stent for coronary artery disease 748649140 Z95.5 x 3 Hypertensive disorder 38 871558 I10 Stable continue current interventi ons. Atheroscle rosis of coronary artery without angina pectoris 1015678029 61995 I25.10 on statin. stents. watch blood sugar and blood pressure. Hospital i npatient stay within past 30 days 4361156156 106 Z76.89 heart attack and stent placement. [id number] CASSI BELLAMY APRN [facility] [address] [place] [address] 12/22/2023 09:13:49 12/27/2023 14:43:27 Uncontrolled type 2 diabetes mellitus 540232300 E11.65 needs glucometer and strips. Hospital i npatient stay within past 30 days 6955510862 106 Z76.89 For GI bleed. Abnormal g ait due to muscle weakness 411918176 M62.81 weak and fatigued, working on getting stronger. Hypertensive disorder 38 346005 I10 Stable continue current interventi ons. [id number] CASSI BELLAMY APRN [facility] [address] [place], [place] [address] 01/14/2024 14:44:02 01/21/2024 14:20:21 Vitamin D deficiency 13683509 E55.9 needs renewal of med today. Dementia 64424763 F03.90 having some mild forgetfuln ess. Hospital i npatient stay within past 30 days 0221145871 106 Z76.89 For GI bleed. Abnormal g ait due to muscle weakness 190669347 M62.81 weak and fatigued, working on getting stronger. Hypertensive disorder 38 620648 I10 Stable continue current interventi ons. [id number] CASSI BELLAMY APRN [facility] [address] [place] [address] 02/21/2024 13:56:03 02/25/2024 14:32:56 Angiodysplasia of gastrointestinal tract 1038832744 85049 K55.20 Cauterized per the GI. Stop aspirin. Speak to cardiologi st about aspirin and Plavix both and if this is necessary. Hospital i npatient stay within past 30 days 4867010922 106 Z76.89 For GI bleed, again. Gastrointe stinal hemorrhage 63643510 K92.2 Stable at this time. [id number] CASSI BELLAMY APRN [facility] [address] [place] [id number] 03/07/2024 10:14:08 03/10/2024 11:19:51 Active immunization 47856438 Z23 Has patient had Hep B vaccine? No record in chart Has patient had Shingles vaccine? no record in chartPrevn ar13: 04/12/2017 Covid x 2 : Bivalent booster not included.I nfluenza vaccine: 06/15/2018 Chronic sy stolic heart failure 803526364 E26.1 sees cardiology routinely. CCM Uncontroll ed type 2 diabetes mellitus 128583576 E11.65 [facility] History of placement of stent for coronary artery disease 265298185 Z95.5 x 3 in the spring of this year. Hypertensive disorder 38 658123 I10 Stable continue current interventi ons. Atheroscle rosis of coronary artery without angina pectoris 2815293542 56506 I25.10 on statin. stents. watch blood sugar and blood pressure. Diabetic p eripheral neuropathy 470323372 E11.40 Having some worsening symptoms but the gabapentin does help. Continue current interventi ons. Generalize d anxiety disorder 09669359 F33.9 Stable at this time. Continue current interventi ons. Primary insomnia 6370351 F51.01 gabapentin helps with this. Hyperlipidemia 10737751 E78.5 stable. continue statin, no side effects currently. Gastroesop hageal reflux disease without esophagitis 953303420 K21.9 add pepsic daily and see if this improves. Recurrent major depression 78251264 F33.9 stable at this time, on citalopram . Anemia due to blood loss 352103399 D50.0 still following GI. Chronic ki dney disease stage 3A 285328630 N18.31 GFR is mildly decreased. CCM and monitoring . [id number] CASSI BELLAMY APRN [facility] [address] [place] [address] 06/06/2024 14:44:14 07/14/2024 02:18:54 Adult health examination 919294065 Z00.00 Uncontroll ed type 2 diabetes mellitus 507510575 E11.65 [facility] Administra tion of influenza vaccine 94354406 Z23 Insomnia 555729710 F51.0 1 trazodone. Secondary hyperaldosteronism 58326928 E26.1 per cardiology . Chronic sy stolic heart failure 724632975 E26.1 sees cardiology routinely. CCM History of placement of stent for coronary artery disease 201439541 Z95.5 x 3 in the spring of this year. Hypertensive disorder 38 851971 I10 Stable continue current interventi ons. Atheroscle rosis of coronary artery without angina pectoris 5704020899 12052 I25.10 on statin. stents. watch blood sugar and blood pressure. Diabetic p eripheral neuropathy 119353016 E11.40 Having some worsening symptoms but the gabapentin does help. Continue current interventi ons. Generalize d anxiety disorder 93669990 F33.9 Stable at this time. Continue current interventi ons. Primary insomnia 7478365 F51.01 gabapentin helps with this. Hyperlipidemia 74040878 E78.5 stable. continue statin, no side effects currently. Gastroesop hageal reflux disease without esophagitis 303091466 K21.9 add pepsic daily and see if this improves. Recurrent major depression 87498657 F33.9 stable at this time, on citalopram . Anemia due to blood loss 455435942 D50.0 still following GI. Chronic ki dney disease stage 3A 820718131 N18.31 GFR is mildly decreased. CCM and monitoring . [id number] CASSI BELLAMY APRN [facility] [address] [place] [address] 08/16/2024 12:32:20 08/22/2024 08:07:15 Vertigo 792594957 R42 add meclizine, let me know if no improvemen t. Diabetic p eripheral neuropathy 712997688 E11.40 stable at this time, blood sugars have been stable. Chronic ki dney disease stage 3 407760154 N18.31 continue hydration and BP management . Chronic sy stolic heart failure 502528693 I50.22 sees cardiology . Dementia 20360181 F03.90 stable, mild, no worsening. Moderate r ecurrent major depression 30002673 F33.1 stable, she has gone back to work now. Uncontroll ed type 2 diabetes mellitus 734812468 E11.65 CCM, on a new insulin currently. Insomnia 837991533 F51.0 1 trazodone. Secondary hyperaldosteronism 01898333 E26.1 per cardiology . History of placement of stent for coronary artery disease 660589749 Z95.5 x 3 in the spring of last year. Hypertensive disorder 38 694916 I10 Stable continue current interventi ons. Atheroscle rosis of coronary artery without angina pectoris 5092385289 62518 I25.10 on statin. stents. watch blood sugar and blood pressure. Generalize d anxiety disorder 54058287 F33.9 Stable at this time. Continue current interventi ons. Primary insomnia 9210693 F51.01 gabapentin helps with this. Hyperlipidemia 65406195 E78.5 stable. continue statin, no side effects currently. Gastroesop hageal reflux disease without esophagitis 454423225 K21.9 add pepsic daily and see if this improves. Anemia due to blood loss 158067299 D50.0 still following GI. [id number] CASSI BELLAMY APRN [facility] [address] [place] [address] 09/14/2024 12:13:44 09/19/2024 06:25:12 Vitamin D deficiency 63392424 E55.9 needs renewal of med today. Dizziness and giddiness 525310697 R42 has been going on now for a couple of months, no improvemen t, does not seem to be like regular vertigo. Pain of ri ght ankle joint 6522321971 4951324 M25.571 due to high blood sugars may be gout. Uncontroll ed type 2 diabetes mellitus 265194830 E11.65 CCM, on a new insulin currently. increase insulin dose. card put her on farxiga but she can't afford it, gave her samples. Iron defic iency anemia 03298357 D50.9 check labs today. At high ri for malignant neoplasm of breast 0211444805 14482 Z91.89 breast center high risk referral Insomnia 431155508 F51.0 1 trazodone, [place] [facility]. Secondary hyperaldosteronism [id number] E26.1 per cardiology . Chronic sy stolic heart failure [id number] E26.1 sees cardiology routinely. [facility] History of placement of stent for coronary artery disease [id number] Z95.5 x 3 in the spring of this year. Hypertensive disorder 38 865246 I10 Stable continue current interventi ons. Atheroscle rosis of coronary artery without angina pectoris [id number] 32849 I25.10 on statin. stents. watch blood sugar and blood pressure. Diabetic p eripheral neuropathy [id number] E11.40 Having some worsening symptoms but the gabapentin does help. Continue current interventi ons. Generalize d anxiety disorder [id number] F33.9 Stable at this time. Continue current interventi ons. Hyperlipidemia 78529912 E78.5 stable. continue statin, no side effects currently. Gastroesop hageal reflux disease without esophagitis [id number] K21.9 add pepsic daily and see if this improves. Recurrent major depression [id number] F33.9 stable at this time, on citalopram . Chronic ki dney disease stage 3A [id number] N18.31 GFR is mildly decreased. CCM and monitoring . [id number] CASSI FRANKLIN, NEUROLOGY [facility] CLOSED [address] [place] [address] 09/20/2024 09:23:58 09/21/2024 09:39:11 Postural dizziness [id number] R42 She describes some vertiginou s symptoms [...] PT/vestibu lar therapies. Impairment of balance 38 9608101 R26.89 She developed persistent imbalance and vertiginou s dizziness right after her heart attack last year. She has clinical findings of PN on exam today as well that contribute to her imbalance issues. Fall precaution s reviewed. Will consider formal PT after MRI results can be reviewed. Paresthesi a of lower extremity [id number] R20.2 On exam she has findings suggestive of PN. She is not reporting any significan t pain so interventi on not needed. She is a diabetic, her recent A1C was 10.1. [id number] SHAVONNE AMOS APRN BREAST SURGERY [address] [place] [address] 09/20/2024 08:38:11 09/20/2024 09:38:07 Family history of malignant neoplasm of breast in first degree relative [id number] Z80.3 Family history reviewed in detail including [...] determined to be 8.11% by Leticia page, Nathan. High risk management is not indicated and [...] may see us on an as-needed basis. [id number] SUSU ALLISON PA-C ORTHOPEDI [facility] CLOS[facility] [address] [id number] 10/17/2024 12:49:32 10/17/2024 14:08:36 Rib pain [id number] R07.81 Start methocarba mol to help with [...] by Organization Details LastModified Time None Recorded Advance Directives Directive None Recorded Payers Insurance Date Sequence Insurance Name Policy Number Policy Camejo Covered Member ID Camejo Member ID Guarantor Name 10/24/2024 1 [employer] (MEDICARE REPLACEMENT/ ADVANTAGE - PPO) Brenden Veras [id number] Brenden Veras 03/07/2024 1 NIGEL Levy (HMO) TEMI Veras [id number] Brenden Veras Notes Date Note Type Note Provider Name and Address Organization Details Recorded Time 08/16/2024 text/html Visit today is b eing conducted via telehealth using both audio/video. The patient confirms that he/she is physically located in [place] at the time of this visit. Patient expressed understanding of audio/video telehealth as a billable visit and has consented. Patient also expressed understanding that not every condition can be appropriately addressed via telehealth and that this telehealth visit may need to be converted to an in-person visit or may even result in a recommendation to go to the E.R. at the provider s discretion in order to provide the best possible care. Patient for telehealth visit due to inclement weather. She has continued to see the GI but has not had any blood transfusions recently. She is currently taking a new insulin due to insurance discontinuing her old one. Her blood sugars have been stable. She is struggling with some vertigo. She says it has been on for about 1 to 2 weeks. She said that it usually happens when she first gets up and when she makes sudden movements. No nausea or vomiting associated. Her blood pressure has been stable and her blood sugar has been stable. She has no associated congestion or fever. CASSI BELLAMY APRN [address] [place], [address], [facility] 08/21/2024 10:01:38 09/14/2024 text/html Patient comes in today for routine fu. Her A1C today is high at over 10. She is having pretty chronic and significant pain of the R ankle that just suddenly started, with the high A1C could be gout. She continues with chronic anemia but has not had any blood transfusions lately. She has continued with the unusual dizziness. her photographer still wants her to see neurology. she says it is weird, like she just keeps going forward if she bends down. meclizine does not help her. She also needs referral to the high risk breast center, her sister has breast cancer and she was told to follow up more frequently. CASSI BELLAMY APRN [address] [place], [address], [facility] 09/18/2024 11:00:34 09/20/2024 text/html Brenden Veras i s a 68 yo female, new to our office, referred by Cassi Bellamy APRN for breast cancer risk evaluation. Her family history is remarkable for breast cancer in her maternal half-sister at age 64. There are many cancers on her father's side, but this history is very limited and most of these primary cancers are unknown. Her personal lifetime risk of breast cancer was estimated to be 20% at the time of her last mammogram. More detailed cancer risk assessment performed upon arrival today to include breast density and complete family pedigree, showslifetime breast cancer risk of 8.11% by nathan Bloom. Brenden is a who underwent menarche at age 13 and menopause at age 51. She retains uterus and ovaries. She used OCPs in the past for about 12 years, has never taken any HRT. She has had one benign breast biopsy with subsequent excisional biopsy of cysts on the right breast over 20 years ago. She has been being followed every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
--- OUTSIDE RECORDS SUMMARY | 2024-12-08 11:21 | XMS_ITS | Clinical Summary ---
Author Organization [facility] Address [address] [place] [address] Care Team Providers Care Bottling Equipment Sales Representative Name Role Phone Flor Benitez Primary Care Provider [phone] Allergies Active Allergy Reactions Criticality Noted Date Comments Loratadine Other - please docum ent in the comment field Low 09/01/2021 Causes pt to belch it Up Medications aspirin 81 MG EC tablet Take 81 mg by mouth 1 (one) time each day. Stopped on 10/30/2021 05/22/2020 Active atorvastatin (Lipitor) 20 MG tablet Take by mouth every night. 05/22/2020 Active citalopram (CeleXA) 40 MG tablet Take 40 mg by mouth 1 (one) time each day. 05/22/2020 Active gabapentin (Neurontin) 300 MG capsule Take 1 capsule by mouth 3 (three) times a day. 05/22/2020 Active glipiZIDE (Glucotrol) 10 MG tablet Take by mouth 2 (two) times a day before meals. 11/23/2019 Active lisinopril 10 MG tablet Take 10 mg by mouth 1 (one) time each day. 11/23/2019 Active nabumetone (Relafen) 750 MG tablet Take 750 mg by mouth 2 (two) times a day. 01/23/2020 Active pioglitazone (Actos) 30 MG tablet Take by mouth. 05/30/2020 Active traMADol (Ultram) 50 MG tablet Take 1 tablet by mouth 3 (three) times a day. As needed 02/06/2020 Active Vitamin D-3 25 MCG (1000 UT) capsule Take 1,000 Units by mouth 1 (one) time each day. 07/23/2021 Active Vitamin D3 1.25 MG (41488 UT) capsule Take 50,000 Units by mouth 1 (one) time per week. On Wednesday's 08/18/2021 Active Invokana 300 MG Take 300 mg by mouth 1 (one) time each day. 08/23/2021 Active Tradjenta 5 MG tablet Take 5 mg by mouth 1 (one) time each day. 06/22/2021 Active Calcium Carbonate (EQL CALCIUM PO) Take 600 mg by mouth 1 (one) time each day. Active insulin glargine (Basaglar KwikPen) 100 UNIT/ML injection pen Inject 10 Units under the skin every night. Active Melatonin 5 MG tablet tablet Take 10 mg by mouth every night. Active HYDROcodone-jignesh taminophen (Norman) 5-325 MG tablet Take 1 tablet by mouth every 6 (six) hours if needed for severe pain. 20 tablet 11/04/2021 Active Active Problems Problem Noted Date Diagnosed Date Closed fracture dislocation of proximal interphalangeal joint of finger 10/30/2021 Overview (10/30/2021): Added automatically from request for surgery [id number] Rotator cuff tear 02/06/2020 Shoulder pain 01/18/2020 Ankle fracture 2019 Ankle pain 11/23/2019 Social History Tobacco Use Types Packs/Day Years Used Date Smoking Tobacco: Former Smokeless Tobacco: Never Alcohol Use Standard Drinks/Week Comments Never 0 (1 standard drink = 0.6 oz pur e alcohol) PHQ-2 Answer Date Recorded Patient Health Questionnaire-2 Score 0 10/30/2021 Comments No Sex and Gender Information Value Date Recorded Sex Assigned at Not on file Legal Sex Female 7:48 PM EDT Gender Identity Not on file Sexual Orientation Not on file Last Filed Vital Signs Vital Sign Reading Time Taken Comments Blood Pressure 119/45 01/29/2022 2:31 PM EDT Pulse 94 01/29/2022 2:31 PM EDT Temperature 36.8 C (98.3 F) 01/29/2022 2:31 PM EDT Respiratory Rate 19 11/04/2021 6:25 PM EDT Oxygen Saturation 97% 01/29/2022 2:31 PM EDT Inhaled Oxygen Concentration - - Weight 76.2 kg (168 lb) 01/29/2022 2:31 PM EDT Height 160 cm (5' 3 ) 01/29/2022 2:31 PM EDT Body Mass Index 29.76 01/29/2022 2:31 PM EDT Plan of Treatment Health Maintenance Due Date Last Done Comments [facility]-Bone Density Scan 1956 [facility]-Hepatitis C Screening 1956 [facility]-Medicare Annual Wellness (AWV) 1955 [facility]-Infant/Child/Adol SDOH Screenings 1956 [facility]-Obesity Intervention 1962 [facility]- SDOH Screenings 1974 [facility]-Adult SDOH Screenings 1974 [facility]-DTaP,Tdap,and Td Vaccine s (1 - Tdap) 12/15/1975 CT Colonography 2001 Colonoscopy 2001 FIT-DNA 2001 FIT 2001 FOBT 2001 Sigmoidoscopy 2001 [facility]-Colorectal Cancer Screening 2001 [facility]-Breast Cancer Screening 2006 [facility]-Zoster Vaccines (1 of 2) 2006 [facility]-Pneumococcal Vaccine: 50 + Years (2 of 2 - PPSV23) 04/12/2018 04/12/2017 [facility]-Depression Screening 10/30/2022 10/30/2021 [id number] Vaccine ( season) 2024 11/25/2020, 10/31/2020, 10/02/2020 [facility]-Influenza Vaccine (Seaso n Ended) 2025 06/15/2018 [facility]-RSV Vaccine: 60+ Years o r (1 - 1-dose 75+ series) 12/15/2031 [facility]-Hepatitis A Vaccines Aged Out 06/15/2018 No longer eligible based on patient's age to complete this topic HPV Vaccines Aged Out No longer eligi ble based on patient's age to complete this topic [facility]-HIB Vaccines Aged Out No longer e ligible based on patient's age to complete this topic [facility]-IPV Vaccines Aged Out No longer e ligible based on patient's age to complete this topic [facility]-Rotavirus Vaccines Aged Out No lo nger eligible based on patient's age to complete this topic Goals Goal Patient Goal Type Associated Problems Recent Progress Patient-Stated? Author Keep it moving without pain. Occupational Therapy Yes Cady Malcolm LTG: Patient will decrease Quick DASH score to less than 20% demonstrating less perceived impairment due to upper limb condition. Occupational Therapy On track(2021 11:01 PM EDT) No Cady Malcolm LTG: Pt will regain reed cleaner strength of affected hand within normal range for sex and age in order to return to activity at prior level of function. Occupational Therapy On track(2021 8:27 PM EDT) No Cady Malcolm Note: Mean for age and sex is 49.6 lbs on right hand STG OT ROM: Patient will demonstrate ability to make a composite fist with ring finger to within 1 cm of DPC for functional gripping Occupational Therapy Improving( 11:01 PM EDT) No Cady Malcolm STG: Increase total passive flexion of ring finger to 240 Occupational Therapy Improving( 5:28 PM EDT) No Cady Malcolm Medical Devices Implanted Type Area Nuclear Medicine Technologist Device Identifier Shelf Expiration Date Model / Serial / Lot Screw 1.3mm Ti Cortex T4 Star Selftap 10mm - Snone - [id number] Implanted:Qty: 1 on 11/04/2021 by Balbir Smalls MD at [facility] Screw Right: Hand [employer] [id number] 04.130.010 / NONE / Screw 1.3mm Ti Cortex T4 Star Selftap 9mm - Snone - [id number] Implanted:Qty: 1 on 11/04/2021 by Balbir Smalls MD at [facility] Screw Right: [employer] [id number] 04.130.009 / NONE / Screw 1.3mm Ti Cortex T4 Star Selftap 13mm - Snone - [id number] Implanted:Qty: 1 on 11/04/2021 by Balbir Smalls MD at [facility] Screw Right: Hand [employer] [id number] 04.130.013 / NONE / Explanted Type Area Nuclear Medicine Technologist Device Identifier Shelf Expiration Date Model / Serial / Lot Screw 1.3mm Ti Cortex T4 Star Selftap 14mm - Snone - [id number] Explanted:Qty: 1 on 11/04/2021 by Balbir Smalls MD at [facility] Screw Right: Hand [employer] [id number] 04.130.014 / NONE / Insurance [facility] MEDICARE Care Teams Bottling Equipment Sales Representative Relationship Specialty Start Date End Date Flor Benitez PA [address] [place] [address] PCP - General 11/08/20
== END 2024-12-08 23:59 | disposition home or self-care (01) ==
LOC: RT 11:15
PROVIDERS: PCP Nurse Practitioner; Visit Provider Internal Medicine
DX: I31.39 Other pericardial effusion (noninflammatory) (principal); I21.4 Non-ST elevation (NSTEMI) myocardial infarction; I42.9 Cardiomyopathy, unspecified; R93.1 Abnormal findings on diagnostic imaging of heart and coronary circulation
CPT/HCPCS: 93308

== ENCOUNTER 2025-06-11 13:49 | Outpatient (CLI) | payer MEDICARE, SELFPAY ==
[2025-06-11 14:22] LABS: Hematocrit 35.5 % (37.0-47.0); Hemoglobin 11.8 g/dL (12.2-16.2); Immature Granulocytes % 0.8 %; Mean Corpuscular HGB Conc 33.2 g/dL (31.8-35.4); Mean Corpuscular Hemoglobin 29.6 pg (27.0-31.2); Mean Corpuscular Volume 89.2 fl (81-99); Nucleated Red Blood Cells % 0 %; Platelet Count 243 K/mm3 (142-424); Red Blood Count 3.98 M/mm3 (4.20-5.40); Red Cell Distribution Width-SD 44.3 fL; White Blood Count 10.7 K/mm3 (4.8-10.8)
[2025-06-11 15:04] LABS: Alanine Aminotransferase 20 U/L (12-78); Albumin Level 4.6 g/dl (3.5-5.0); Alkaline Phosphatase 103 U/L (38-126); Anion Gap 15.0 mEq/L (5-15); Aspartate Amino Transferase 24 U/L (14-36); Bilirubin,Direct 0.6 mg/dl (0.0-0.4); Bilirubin,Indirect 0.2 mg/dL (0.0-0.9); Bilirubin,Total 0.8 mg/dl (0.2-1.3); Bilirubin,Unconjugated 0.2 mg/dL (0.0-1.1); Blood Urea Nitrogen 33 mg/dl (7-17); Calcium 10.3 mg/dl (8.4-10.2); Carbon Dioxide 25 mmol/L (22.0-30.0); Chloride 102 mmol/L (98-107); Cholesterol 160 mg/dl (140-200); Creatinine,Serum 1.30 mg/dl (0.52-1.04); Estimated Glomerular Filt Rate 41 ml/min (>60); GFR (African American) 49 ML/MIN (>60); Glucose 175 mg/dl (74-100); HDL Cholesterol 29 mg/dl (40-60); Magnesium 1.4 mg/dl (1.6-2.3); Potassium 5.0 mmoL/L (3.5-5.1); Sodium 137 mmol/L (136-145); Total Protein,Serum 7.5 g/dl (6.3-8.2); Triglycerides 192 mg/dl (30-150)
[2025-06-11 15:20] LABS: Free T4 (Free Thyroxine) 1.04 ng/dl (0.78-2.19)
[2025-06-11 15:35] LABS: Thyroid Stimulating Hormone 1.50 uIU/mL (0.465-4.68)
== END 2025-06-11 23:59 | disposition home or self-care (01) ==
LOC: LAB 13:50
PROVIDERS: PCP Nurse Practitioner; Visit Provider Internal Medicine
DX: I50.20 Unspecified systolic (congestive) heart failure (principal); I95.89 Other hypotension; D62 Acute posthemorrhagic anemia; I25.10 Atherosclerotic heart disease of native coronary artery without angina pectoris; E11.65 Type 2 diabetes mellitus with hyperglycemia; E78.5 Hyperlipidemia, unspecified
CPT/HCPCS: 36415; 80048; 80061; 80076; 83735; 84439; 84443; 85025